=== PATIENT | female | born 1990 | race Caucasian/White ===

== ENCOUNTER 2024-10-01 15:28 | Outpatient (AMB) | payer OTHER, SELFPAY ==
--- NOTE | 2024-10-01 15:31 | MHC.PC.OV ---
Vital Signs 10/01/24 15:45 Height 5 ft 3 in Weight 142 lb BMI 25.2 BP 142/78 H Blood Pressure Location Lt brachial Position Sitting Respiration 14 Pulse 98 Pulse Source Pulse Oximeter Temp 97.1 F Temp Source Oral Pulse Oximetry (%) 95 Oxygen Delivery Method Room Air Intake Visit Reasons: FUNCTIONAL CONSULTANT Medication review Intake Note: new patient to establish care Licensed Weigher Required: No Allergies sumatriptan [SUMATRIPTAN] Allergy (Severe, Unverified 10/01/24 15:31) THROAT SWELLING Tobacco use date assessed: 10/01/24 Dental Screening Dental Screen Date: 10/01/24 Did you have a dental visit in the last 12 months?: Yes Did you have a dental problem in the last 6 months where you did not have access to dental care?: No Was dental information given to patient?: Patient has dentist HPI HPI Comments History of Present Illness Details This is a 33-year-old female with a past medical history of recurrent nephrolithiasis, chronic pain, colon polyps, hypertension, insomnia, anxiety, prior obesity now resolved on GLP 1 therapy, eczema and left breast masses presenting to [facility]. She transferred from [facility]. Left breast masses-patient said she felt something in her left breast, and she went for ultrasound and mammogram and this was just fibrous tissue, but they also saw 3 masses in the outer quadrants of her left breast. She has a biopsy scheduled next week and an appointment to review the results on 10/13/2024. She is concerned because her paternal cousin had breast cancer under the age of 50. Her father also has colon cancer in his 60s, and her paternal grandfather had melanoma. She was referred to genetic counseling at [facility] at 1 point (this was recommended apparently by an oncologist), but at the time her insurance did not cover it. She has new insurance now. She is followed by [facility] for recurrent nephrolithiasis. Last year she had a colonoscopy which demonstrated what she says were several colon polyps and 1 was 7 mm. She was told she has to have colonoscopies annually. She is followed by [facility]. She has a colonoscopy scheduled 11/18/2023. She was diagnosed with hypertension in her early 30s. She has a family history of this. She quit smoking, and she lost weight, and her BMI is 25.2, but her blood pressure remains elevated at home and in the office. She is taking hydrochlorothiazide 12.5 mg and losartan 100 mg daily. She is a social drinker. She does not take stimulants. She does not drink caffeine excessively. She will have a cup of coffee or 2. She also endorses chronic right rib pain and left shoulder pain since she was a teenager. She wanted to discuss referral to Rheumatology with her healthcare provider who ended up closing the practice. No recent labs. Patient reports she has gone to the [facility] ED for evaluation of many of the symptoms and had multiple CT scans and x-rays. She takes Zofran as needed for nausea related to her anxiety. She takes alprazolam 0.5 mg twice daily as needed. She usually just takes this at night because she can not sleep otherwise. Trazodone made her feel like a zombie. Patient is prescribed an oral contraceptive pill, but she has not seen a toaster operator in a couple of years. Reports her last healthcare provider said they would do pap/pelvic exam, but this was not done per patient. ROS: Constitutional: No unexplained weight loss, fever, chills or night sweats. Respiratory: No shortness of breath, cough or sputum production. Cardiovascular: No chest pain, chest pressure or chest discomfort. No palpitations or pedal edema. Gastrointestinal: No anorexia, nausea, vomiting or diarrhea. No abdominal pain or blood in stool. Genitourinary: No dysuria, hematuria, urinary frequency. Neurologic: No headache, dizziness, syncope Psychiatric: No depression.. No SI/HI. Physical exam: Constitutional: Alert, in no distress. Eyes: Pupils are equal, round and reactive to light. Extraocular muscles intact. Neck: Supple, Full range of motion. No lymphadenopathy. No palpable thyroid masses. Respiratory: Clear to auscultation. Cardiovascular: S1 S2 regular. No murmurs. Gastrointestinal: Abdomen soft, non-tender, non-distended. Normal bowel sounds. No palpable masses. Neurologic: No focal neurological deficits. Skin: No rashes Extremities: Warm and well perfused. No clubbing, cyanosis or edema. 3+ peripheral pulses bilaterally. Psychiatric: Normal mood and affect [facility] Medical History (Updated 10/01/24 @ 17:31 by HAILEY Mendoza) Contraception management Eczema History of gestational diabetes Insomnia Former smoker Chronic pain Colon polyps Family history of cancer Imbalance Memory loss Headache Kidney stones Anxiety HTN (hypertension) Surgical History (Updated 10/01/24 @ 15:53 by Phoebe Millan) Hx of tonsillectomy Family History (Updated 10/01/24 @ 15:51 by Phoebe Millan) Mother HTN (hypertension) Cardiovascular disease Thyroid disorder Father HTN (hypertension) Cancer Maternal Grandmother HTN (hypertension) High cholesterol Diabetes Cardiovascular disease Cancer Paternal Grandfather HTN (hypertension) High cholesterol Cancer Sister Asthma Social History (Updated 10/01/24 @ 15:45 by Phoebe Millan) Household Members: Significant Other and Children Both parents involved: No Caregiver staying overnight: No Housing: House Are you a primary intensive care anaesthetist to a significant other at home: Yes Do you presently have visiting nurse or other home services: No 75 years or older and lives alone: No Alcohol intake: current Alcohol intake frequency: a few times a month Patient Tobacco Use Status: Former Tobacco user Cigarettes Per Day: 10 Years Smoked: 10 e-Cigarette/Vaping Use: Never Used Second Hand Smoke Exposure: No service: No Current occupational status: unemployed Cognitive needs: No Hearing needs: No Vision needs: No Questionnaire PHQ-9 Over the last 2 weeks, how often have you been bothered by any of the following problems? 1. Little interest or pleasure in doing things: not at all 2. Feeling down, depressed, or hopeless: not at all 3. Trouble falling or staying asleep, or sleeping too much: not at all 4. Feeling tired or having little energy: not at all 5. Poor appetite or overeating: not at all 6. Feeling bad about yourself - or that you are a failure or have let yourself or your family down: not at all 7. Trouble concentrating on things, such as reading the newspaper or watching television: not at all 8. Moving or speaking so slowly that other people could have noticed. Or the opposite - being so fidgety or restless that you have been moving around a lot more than usual: not at all 9. Thoughts that you would be better off or of hurting yourself in some way: not at all Total score: 0 71083 - PHQ-9 Billing: Yes Source: Developed by Drs. Karthik Felton, Kristie Barrientos, Dave Brown and colleagues, with an educational joan from [employer]. Thrive Questionnaire Date Thrive assessed: 10/01/24 I am a: Patient What is your living situation today?: I have a steady place to live Within the past 12 months, did the food you bought not last and you didn't have the money to get more?: Never true Within the past 12 months, did you worry whether your food would run out before you got money to buy more?: Never true Do you have trouble paying for medicines?: No Do you have trouble getting transportation to medical appointments?: No Do you have trouble paying your heating and electricity bill?: No Do you have trouble taking care of your child, family member or friend?: No Do you have trouble with day-to-day activities such as bathing, preparing meals, shopping, managing finances, etc.?: No Are you currently unemployed and looking for a job?: I choose not to answer this question Are you interested in more education?: No Please select the resources that you would like help with: None Currently or been in a relationship where the following occur: No concerns reported THRIVE Score: 0 AUDIT C Alcohol Use Questionnaire (AUDIT-C) 1. How often do you have a drink containing alcohol?: Monthly or less 2. How many drinks containing alcohol do you have on a typical day when you are drinking?: 1 or 2 3. How often do you have six or more drinks on one occasion?: Never Total Score: 1 THIERNO-7 AMB Questionnaire THIERNO-7 Date THIERNO - 7 assessed: 10/01/24 Feeling nervous, anxious, or on edge: 0 = Not at all Not being able to stop or control worryin = Not at all Worrying too much about different things: 0 = Not at all Trouble relaxin = Not at all Being so restless that it is hard to sit still: 0 = Not at all Becoming easily annoyed or irritable: 0 = Not at all Feeling afraid as if something awful might happen: 0 = Not at all Total THIERNO-7 score (0-4 normal; 5-9 mild; 10-14 moderate; 15-21 severe): 0 Source: Developed by Drs. Karthik Felton, Kristie Barrientos, Dave Brown and colleagues, with an educational joan from [employer]. THIERNO-7 Assessment Billing THIERNO-7 Assessment Tool: THIERNO-7 Assessment 93509 Physical exam (Primary Care) Vital Signs: Last Vital Signs Temp 97.1 F 10/01/24 15:45 Pulse 98 10/01/24 15:45 Resp 14 10/01/24 15:45 BP 142/78 H 10/01/24 15:45 Pulse Ox 95 10/01/24 15:45 Oxygen Delivery Method Room Air 10/01/24 15:45 BMI result Body Mass Index 25.2 Tobacco/Smoking Status: Tobacco use Status Tobacco use date assessed 10/01/24 10/01/24 15:53 Patient Tobacco Use Status Former Tobacco user 10/01/24 15:53 e-Cigarette/Vaping Use Never Used 10/01/24 15:53 PHQ-9: PHQ-9 Score PHQ-9: Total score 0 10/01/24 15:35 Thrive Assessment: Date of Thrive Assessment Date Thrive assessed 10/01/24 10/01/24 15:35 Currently or been in a relationship where the following occur: No concerns reported Coding Level of Care Code New Pt Level 5 (27570) Complex EM visit Add On G2211 Diagnoses Family history of cancer Z80.9 Colon polyps K63.5 Chronic pain G89.29 HTN (hypertension) I10 Anxiety F41.9 Contraception management Z30.9 Additional Codes THIERNO-7 Assessment Billing - THIERNO-7 Assessment Tool: THIERNO-7 Assessment 02861 ([id number]) PHQ-9 - 30848 - PHQ-9 Billing: Yes ([id number]) Time Spent (min) 60 Comment Chart review, direct patient care, completing documentation Assessment & Plan Assessment & Plan (1) Family history of cancer: Code(s): Z80.9 - Family history of malignant neoplasm, unspecified Category: Medical (2) Colon polyps: Code(s): K63.5 - Polyp of colon Category: Medical (3) Chronic pain: Code(s): G89.29 - Other chronic pain Category: Medical (4) HTN (hypertension): Code(s): I10 - Essential (primary) hypertension Category: Medical (5) Anxiety: Code(s): F41.9 - Anxiety disorder, unspecified Category: Medical (6) Contraception management: Code(s): Z30.9 - Encounter for contraceptive management, unspecified Category: Medical Plan In summary this is a 33-year-old female with multiple concerning issues today. The breast biopsy is the 1st priority as she reportedly had 3 masses discovered on ultrasound and mammogram recently and she has a family history of breast cancer. This is scheduled, and she has a appointment to review the results. Given her family history and her personal history I am going to refer her again to genetic counseling to see if her insurance will cover testing. I am also concerned about secondary causes of hypertension since she is not overweight anymore, she no longer smokes, and she is requiring more than 1 medication for hypertension. We will discontinue hydrochlorothiazide and start her on chlorthalidone 25 mg daily. Side effects reviewed with the patient including hypokalemia, dizziness, hypotension, dehydration, urinary frequency. She will continue losartan 100 mg daily. She denies history of CKD. She will start the meds and go to the lab in a week to check blood work including renal function. We will consider referral to Cardiology and/or Nephrology for evaluation of secondary causes of hypertension. Chronic pain was briefly addressed today. I will order rheumatological labs. These are longstanding issues, and she may require imaging, but I would also like to review her record. I will also readdress her regimen for anxiety and sleep as long-term use of benzodiazepine is not recommended. I am concerned about her cardiovascular risk while using the oral contraceptive pill given hypertension, and she is turning 34 in October. I am referring her urgently to Gynecology to discuss this and potential alternatives to the Apri pill she is taking now. She has a colonoscopy scheduled for re-evaluation of polyps, and she is followed by [facility]. Plan to refer to Dermatology for a skin exam given family history of melanoma. We will discuss this at her follow up appointment which is scheduled in 3 weeks. I will refill her Zepbound. I will need to call for the prior authorization of this. Orders: Orders Lipid Panel Today E78.5 - Hyperlipidemia, unspecified, F41.9 - Anxiety disorder, unspecified, G47.00 - Insomnia, unspecified, G89.29 - Other chronic pain, I10 - Essential (primary) hypertension, K63.5 - Polyp of colon, N20.0 - Calculus of kidney, Z30.9 - Encounter for contraceptive management, unspecified, Z86.32 - Personal history of gestational diabetes, Z87.891 - Personal history of nicotine dependence TSH reflex Free T4 Today F41.9 - Anxiety disorder, unspecified, G47.00 - Insomnia, unspecified, G89.29 - Other chronic pain, I10 - Essential (primary) hypertension, K63.5 - Polyp of colon, N20.0 - Calculus of kidney, Z30.9 - Encounter for contraceptive management, unspecified, Z86.32 - Personal history of gestational diabetes, Z87.891 - Personal history of nicotine dependence Hemoglobin A1c Today E11.9 - Type 2 diabetes mellitus without complications, F41.9 - Anxiety disorder, unspecified, G47.00 - Insomnia, unspecified, G89.29 - Other chronic pain, I10 - Essential (primary) hypertension, K63.5 - Polyp of colon, N20.0 - Calculus of kidney, Z30.9 - Encounter for contraceptive management, unspecified, Z86.32 - Personal history of gestational diabetes, Z87.891 - Personal history of nicotine dependence Lipase Today F41.9 - Anxiety disorder, unspecified, G47.00 - Insomnia, unspecified, G89.29 - Other chronic pain, I10 - Essential (primary) hypertension, K63.5 - Polyp of colon, N20.0 - Calculus of kidney, Z30.9 - Encounter for contraceptive management, unspecified, Z86.32 - Personal history of gestational diabetes, Z87.891 - Personal history of nicotine dependence Vitamin B12 Today F41.9 - Anxiety disorder, unspecified, G47.00 - Insomnia, unspecified, G89.29 - Other chronic pain, I10 - Essential (primary) hypertension, K63.5 - Polyp of colon, N20.0 - Calculus of kidney, Z30.9 - Encounter for contraceptive management, unspecified, Z86.32 - Personal history of gestational diabetes, Z87.891 - Personal history of nicotine dependence, Z91.89 - Other specified personal risk factors, not elsewhere classified TRISH Reflex Titer and Pattern Today F41.9 - Anxiety disorder, unspecified, G47.00 - Insomnia, unspecified, G89.29 - Other chronic pain, I10 - Essential (primary) hypertension, K63.5 - Polyp of colon, N20.0 - Calculus of kidney, Z30.9 - Encounter for contraceptive management, unspecified, Z86.32 - Personal history of gestational diabetes, Z87.891 - Personal history of nicotine dependence Erythrocyte Sedimentation Rate Today F41.9 - Anxiety disorder, unspecified, G47.00 - Insomnia, unspecified, G89.29 - Other chronic pain, I10 - Essential (primary) hypertension, K63.5 - Polyp of colon, N20.0 - Calculus of kidney, Z30.9 - Encounter for contraceptive management, unspecified, Z86.32 - Personal history of gestational diabetes, Z87.891 - Personal history of nicotine dependence Microalbumin, Random (w Creat) Today E11.9 - Type 2 diabetes mellitus without complications, F41.9 - Anxiety disorder, unspecified, G47.00 - Insomnia, unspecified, G89.29 - Other chronic pain, I10 - Essential (primary) hypertension, K63.5 - Polyp of colon, N20.0 - Calculus of kidney, Z30.9 - Encounter for contraceptive management, unspecified, Z86.32 - Personal history of gestational diabetes, Z87.891 - Personal history of nicotine dependence Comprehensive Met. Panel Today F41.9 - Anxiety disorder, unspecified, G47.00 - Insomnia, unspecified, G89.29 - Other chronic pain, I10 - Essential (primary) hypertension, K63.5 - Polyp of colon, N20.0 - Calculus of kidney, Z30.9 - Encounter for contraceptive management, unspecified, Z86.32 - Personal history of gestational diabetes, Z87.891 - Personal history of nicotine dependence Complete Blood Count Auto Diff Today F41.9 - Anxiety disorder, unspecified, G47.00 - Insomnia, unspecified, G89.29 - Other chronic pain, I10 - Essential (primary) hypertension, K63.5 - Polyp of colon, N20.0 - Calculus of kidney, Z30.9 - Encounter for contraceptive management, unspecified, Z86.32 - Personal history of gestational diabetes, Z87.891 - Personal history of nicotine dependence Amylase Today F41.9 - Anxiety disorder, unspecified, G47.00 - Insomnia, unspecified, G89.29 - Other chronic pain, I10 - Essential (primary) hypertension, K63.5 - Polyp of colon, N20.0 - Calculus of kidney, Z30.9 - Encounter for contraceptive management, unspecified, Z86.32 - Personal history of gestational diabetes, Z87.891 - Personal history of nicotine dependence Vitamin D 25-OH (D2 and D3) Today F41.9 - Anxiety disorder, unspecified, G47.00 - Insomnia, unspecified, G89.29 - Other chronic pain, I10 - Essential (primary) hypertension, K63.5 - Polyp of colon, M85.80 - Other specified disorders of bone density and structure, unspecified site, N20.0 - Calculus of kidney, Z30.9 - Encounter for contraceptive management, unspecified, Z86.32 - Personal history of gestational diabetes, Z87.891 - Personal history of nicotine dependence C Reactive Protein Today F41.9 - Anxiety disorder, unspecified, G47.00 - Insomnia, unspecified, G89.29 - Other chronic pain, I10 - Essential (primary) hypertension, K63.5 - Polyp of colon, N20.0 - Calculus of kidney, Z30.9 - Encounter for contraceptive management, unspecified, Z86.32 - Personal history of gestational diabetes, Z87.891 - Personal history of nicotine dependence Rheumatoid Factor Today F41.9 - Anxiety disorder, unspecified, G47.00 - Insomnia, unspecified, G89.29 - Other chronic pain, I10 - Essential (primary) hypertension, K63.5 - Polyp of colon, N20.0 - Calculus of kidney, Z30.9 - Encounter for contraceptive management, unspecified, Z86.32 - Personal history of gestational diabetes, Z87.891 - Personal history of nicotine dependence Lyme IgG/IgM w/reflex to WB Today F41.9 - Anxiety disorder, unspecified, G47.00 - Insomnia, unspecified, G89.29 - Other chronic pain, I10 - Essential (primary) hypertension, K63.5 - Polyp of colon, N20.0 - Calculus of kidney, Z30.9 - Encounter for contraceptive management, unspecified, Z86.32 - Personal history of gestational diabetes, Z87.891 - Personal history of nicotine dependence Referrals Genetics Referral K63.5 - Polyp of colon, Z80.9 - Family history of malignant neoplasm, unspecified AQUATICS ASSISTANT DEPARTMENT HEAD Referral Z30.9 - Encounter for contraceptive management, unspecified Medications: New ondansetron HCl 8 mg PO Q8H PRN 30 tabs 0RF nausea and vomiting chlorthalidone 25 mg PO DAILY 30 tabs 0RF tirzepatide (weight loss) (Zepbound) 5 mg (0.5 mL) subcut QWEEK 2 mL 5RF Patient Instructions: Stop HCTZ 12.5 mg daily. Start Chlorthalidone 25 mg daily. Continue Losartan 100 mg daily. Return to lab in 1 week. Please fast over night (10-12 hours).
[2024-10-01 15:45] VITALS: BP 142/78; PULSE 98; RESP 14; TEMP 36.2; O2SAT 95; BMI 25.2
--- OUTSIDE RECORDS SUMMARY | 2024-10-01 18:47 | XMS_ITS | Encounter Summary ---
Author Organization [employer] Address [address] [place] [address] [address] [place] [address] Care Team Providers Care Dehydration Unit Operator Name Role Phone Riri Avina DO Primary Care Provider [phone] Reason for Visit * Reason Onset Date Comments Appointment 10/29/2022 Encounter Details Date Type Department Care Team ([facility] st Contact Info) Description 10/29/2022 Telephone [facility] [address] [place] [address] Connor High, RON [address] [place] [address] Appointment Social History Tobacco Use Types Packs/Day Years Used Date Smoking Tobacco: Never Assessed Comments Unknown Sex and Gender Information Value Date Recorded Sex Assigned at Female 06/04/2022 10:36 AM EDT Legal Sex Female 10:36 AM EDT Gender Identity Female 06/04/2022 10:36 AM EDT Sexual Orientation Straight 06/04/2022 10 :36 AM EDT COVID-19 Exposure Response Date Recorded In the last 10 days, have yo u been in contact with someone who was confirmed or suspected to have Coronavirus/COVID-19? No / Unsure 10/18/2022 8:32 AM EDT documented as of this encounter Miscellaneous Notes * Telephone Encounter - Consuelo Bunch - 10/29/2022 9:06 AM EDT Patient had to cancel appt today 10/[address] High. She is unable to make it and needs to reschedule. Unsure if to place back on waiting list or if appt is immediately rescheduled. Called Donna for assistance but no connect yet. documented in this encounter Plan of Treatment Not on file documented as of this encounter Visit Diagnoses Not on filedocumented in this encounter Care Teams Dehydration Unit Operator Relationship Specialty Start Date End Date Riri Avina DO [address] [place] [id number] PCP - General Family Medicine 05/05/24 documented as of this encounter
--- OUTSIDE RECORDS SUMMARY | 2024-10-01 18:47 | XMS_ITS ---
Author Organization [facility], [facility] Address [address] [place], [place] [id number] Care Team Providers Care Diagnostic Assistant Name Role Phone BRI HADLEY Primary Care Provider [phone] REASON FOR VISIT CPE Encounters Encounter Location Date Provider Diagnosis [address] [id number] 08/31/2024 BRI HADLEY PLAN OF TREATMENT No Information Progress Notes * SUSAN PAYNEDOB:[birth year] (33 yo F)Acc No.[id number]:08/31/2024 Progress Note Patient:??HARRIETT PAYNE LE Provider:??Bri Hadley DNP :1990?Age:33 Y?Sex:Fe male Date:08/31/2024 Phone: Address:[address] [place], [place] [address], [place] Subjective: * Chief Complaints: * ?1. CPE. * Medical History:?? Objective: Assessment: Plan: * Treatment: Care Plan: * Problems:?? * Billing Information: * Visit Code:?? * Procedure Codes:?? * Sign off status: Pending * Provider:??Bri Hadley DNP Date:??0 08/31/2024
--- OUTSIDE RECORDS SUMMARY | 2024-10-01 18:47 | XMS_ITS ---
Author Organization [facility], [facility] Address [address] [place] [id number] Care Team Providers Care Support Associate Name Role Phone BRI HADLEY Primary Care Provider [phone] REASON FOR VISIT PA Request MEDICATIONS Medication SIG (Take, Route, Fr equency, Duration) Notes Start Date End Date Status ALPRAZolam 0.5 MG 1 tablet Oral Twice a day for 30 days 09/16/2024 Active Encounters Encounter Location Date Provider Diagnosis [address] [id number] 09/07/2024 BRI HADLEY PLAN OF TREATMENT Medication Medication Name Sig Start Date Stop Date Notes ALPRAZolam 0.5 MG 1 tablet Oral Twice a day for 30 days Progress Notes * SUSAN PAYNEDOB:[birth year] (33 yo F)Acc No.[id number]:09/07/2024 Patient:??HARRIETT PAYNE :1990?Age:33 Y?Sex:Fe male Phone: Address: [place] [address] * Refills?? Refill ALPRAZolam Tablet, 0.5 MG, Oral, 60, 1 tablet, Twice a day, 30 days, Refills=1 * true * Date:??
--- OUTSIDE RECORDS SUMMARY | 2024-10-01 18:47 | XMS_ITS | Encounter Summary ---
Author Organization [employer] Address [address] [facility] 7t [place] [address] Care Team Providers Care Tentering Machine Feeder Name Role Phone Riri Avina DO Primary Care Provider [phone] Encounter Details Date Type Department Care Team (Late st Contact Info) Description 03/27/2023 Telephone [facility] ADULT DENTAL [address] [place] [address] Tali Elliott DMD Social History Tobacco Use Types Packs/Day Years Used Date Smoking Tobacco: Never Smokeless Tobacco: Never Alcohol Use Standard Drinks/Week Comments Defer 0 (1 standard drink = 0.6 oz pur e alcohol) Comments Unknown Sex and Gender Information Value Date Recorded Sex Assigned at Female 06/04/2022 10:36 AM EDT Legal Sex Female 10:36 AM EDT Gender Identity Female 06/04/2022 10:36 AM EDT Sexual Orientation Straight 06/04/2022 10 :36 AM EDT documented as of this encounter Plan of Treatment Not on file documented as of this encounter Visit Diagnoses Not on filedocumented in this encounter Care Teams Tentering Machine Feeder Relationship Specialty Start Date End Date Riri Avina DO [address] [place] [address] PCP - General Family Medicine 05/05/24 documented as of this encounter
--- OUTSIDE RECORDS SUMMARY | 2024-10-01 18:48 | XMS_ITS | Encounter Summary ---
Author Organization [employer] Address [address] [facility] 7t [place] [address] Care Team Providers Care Supervisor Instrument Maintenance Name Role Phone FabriceRiri Primary Care Provider [phone] Encounter Details Date Type Department Care Team (Late st Contact Info) Description 08/14/2024 Orders Only [facility] MEDICAL [address] [place] [address] Provider, Mannie, Social History Tobacco Use Types Packs/Day Years [...] Procedure Name Priority Date/Time Associated Diagnosis Comments SURGICAL PATHOLOGY Routine 11/21/2023 3:59 PM EDT HM PAP/HPV Routine 06/20/2022 4:01 PM EST documented in this encounter Results * Surgical Pathology (11/21/2023 3:59 PM EDT) Historical Provider LAB PATHOLOGY ORDERABLES Final Result * HM PAP/HPV (06/20/2022 4:01 PM EST) Historical Provider HEALTH MAINTENANCE Final Result documented in this encounter Visit Diagnoses Not on filedocumented in this encounter Care Teams Supervisor Instrument Maintenance Relationship Specialty Start Date End Date Riri Avina DO [address] [place] [address] PCP - General Family Medicine 05/05/24 documented as of this encounter
--- OUTSIDE RECORDS SUMMARY | 2024-10-01 18:48 | XMS_ITS | Clinical Summary ---
Author Organization [facility] [employer] Address [address] [place] [address] 7 [place] [address] Care Team Providers Care Music Therapy Teacher Name Role Phone Riri Avina DO Primary Care Provider [phone] Allergies Active Allergy Reactions Criticality Noted Date Comments Sumatriptan Anaphylaxis High 04/28/2021 Medications amoxicillin-clav ulanate (Augmentin) 500-125 MG tabletIndication s:Dental abscess Take 1 tablet (500 mg) by mouth 3 times daily. 30 tablet 10/04/2022 Active Active Problems Problem Noted Date Diagnosed Date Abdominal pain 08/20/2024 Overview (08/20/2024): Images from the original note were not included. Encounters Date Type Department Care Team Description 08/14/2024 Orders Only [facility] MEDICAL [address] [place] [address] ProviderMannie MD 08/08/2024 Abstract [facility] [address] [place] [address] Riri Avina DO from Last 3 Months Immunizations Name Administration Dates Next Due INFLUENZA INJECTABLE QUADRIV ALANT CCIIV4 MDCK Multi-dose vial 06/28/2020 Influenza, IIV3, injectable 06/28/2020 Tdap 10/12/2016 Social History Tobacco Use Types Packs/Day Years Used Date Smoking Tobacco: Never Smokeless Tobacco: Never Tobacco Cessation:Counseling Given: Not Answered Alcohol Use Standard Drinks/Week Comments Defer 0 (1 standard drink = 0.6 oz pur e alcohol) Comments Unknown Sex and Gender Information Value Date Recorded Sex Assigned at Female 06/04/2022 10:36 AM EDT Legal Sex Female 10:36 AM EDT Gender Identity Female 06/04/2022 10:36 AM EDT Sexual Orientation Straight 06/04/2022 10 :36 AM EDT Last Filed Vital Signs Vital Sign Reading Time Taken Comments Blood Pressure 140/90 04/01/2023 3:46 PM EDT Pulse - - Temperature - - Respiratory Rate - - Oxygen Saturation - - Inhaled Oxygen Concentration - - Weight - - Height - - Body Mass Index - - Plan of Treatment Health Maintenance Due Date Last Done Comments Dental Prophylaxis 1989 Dental X-Ray: Full Mouth 1989 Depression Screening 1989 HIV Screening 1989 SDOH Screening 1989 Alcohol/Substance Use Screening 2001 Family Planning (PISQ) 2004 Hepatitis C Screening 10/18/2007 Hepatitis B Vaccines (1 of 3 - 19+ 3-dose series) 2008 Dental Oral Exam 04/20/2023 2022 Tobacco Screening 04/01/2024 04/01/2023 Dental X-Ray: Bitewings 04/02/2024 04/01/2023 COVID-19 Vaccine (3 - 2023-2 5 season) 2024 05/09/2021, 04/18/2021 Influenza Vaccine (#1) 2024 , 06/28/2020 DTaP/Tdap/Td Vaccines (2 - T d or Tdap) 10/12/2026 10/12/2016 Cervical Cancer Screening 06/20/2027 HPV/Cotest 06/20/2027 Pap Smear 06/20/2027 06/20/2022, 06/20/2022 Zoster Vaccines (1 of 2) 10/18/2039 RSV Patients and Patients Aged 60 years or older (1 - 1-dose 75+ series) 2064 HIB Vaccines Aged Out No longer eligi ble based on patient's age to complete this topic HPV Vaccines Aged Out No longer eligi ble based on patient's age to complete this topic Hepatitis A Vaccines Aged Out No long er eligible based on patient's age to complete this topic IPV Vaccines Aged Out No longer eligi ble based on patient's age to complete this topic Meningococcal Vaccine Aged Out No almaz heather eligible based on patient's age to complete this topic Pneumococcal Vaccine: Pediatrics (0 to 5 Years) and At-Risk Patients (6 to 49) Years) Aged Out No longer eligible b ased on patient's age to complete this topic RSV under 20 months Aged Out No longe r eligible based on patient's age to complete this topic Rotavirus Vaccines Aged Out No longer eligible based on patient's age to complete this topic Procedures Procedure Name Priority Date/Time Associated Diagnosis Comments BITEWING - SINGLE RADIOGRAPHIC IMAGE Routine 04/01/2023 3:00 PM EDT PERIODIC ORAL EVALUATION - ESTABLISHED PATIENT Routine 2022 1:00 PM EDT PAP SMEAR Routine 06/20/2022 12:00 AM EST from Last 3 Months or Most Recently Relevant to Health Maintenance Results * Pap Smear (06/20/2022 12:00 AM EST) Swab us Historical Provider MD LAB CYTOLOGY ORDERABLES F inal Result Performing Organization Address City/State/[facility] Co de Phone Number [facility] [address] [place] [address] from Last 3 Months or Most Recently Relevant to Health Maintenance Insurance [facility] , [address] [place] [address] [facility] Care Teams Music Therapy Teacher Relationship Specialty Start Date End Date Riri Avina DO [address] [place] [address] PCP - General Family Medicine 05/05/24
--- OUTSIDE RECORDS SUMMARY | 2024-10-01 18:48 | XMS_ITS ---
Author Organization [facility], [facility] Address [address] [place], [place] [id number] Care Team Providers Care Treatment Specialist Name Role Phone BRI HADLEY Primary Care Provider REASON FOR VISIT Referral for Breast biopsy Encounters Encounter Location Date Provider Diagnosis [address] [id number] 09/16/2024 BRI HADLEY PLAN OF TREATMENT No Information Progress Notes * SUSAN PAYNEDOB:[birth year] (33 yo F)Acc No.[id number]:09/16/2024 Patient:??HARRIETT PAYNE LE :1990?Age:33 Y?Sex:Fe male Phone: Address:[address] [place] [address] * true * Date:??
== END 2024-10-01 16:28 | disposition home or self-care (01) ==
PROVIDERS: PCP Family Medicine; Visit Provider Physician Assistant Medical
DX: K63.5 Polyp of colon (principal); G89.29 Other chronic pain; I10 Essential (primary) hypertension; F41.9 Anxiety disorder, unspecified; Z30.9 Encounter for contraceptive management, unspecified; Z80.9 Family history of malignant neoplasm, unspecified

== ENCOUNTER → 2024-10-01 15:28 | Outpatient (BNVA) | payer OTHER, SELFPAY | PROVIDERS: PCP Family Medicine; Visit Provider Physician Assistant Medical | DX: I10 Essential (primary) hypertension (principal); N63.20 Unspecified lump in the left breast, unspecified quadrant; K63.5 Polyp of colon; G89.29 Other chronic pain; F41.9 Anxiety disorder, unspecified; Z80.0 Family history of malignant neoplasm of digestive organs; Z80.3 Family history of malignant neoplasm of breast | CPT/HCPCS: 96127; 99202 ==

== ENCOUNTER 2024-10-06 08:25 | Outpatient (REF) | payer OTHER, SELFPAY ==
--- OUTSIDE RECORDS SUMMARY | 2024-10-06 08:47 | XMS_ITS | Encounter Summary ---
Author Organization [employer] Address [address] [facility] 7t [place] [address] Care Team Providers Care Test Cell Technician Name Role Phone Riri Avina DO Primary Care Provider [phone] Encounter Details Date Type Department Care Team (Late st Contact Info) Description 03/27/2023 Telephone [facility] ADULT DENTAL [address] [place] [address] Tali Elliott DMD Social History Tobacco Use [...] on filedocumented in this encounter Care Teams Test Cell Technician Relationship Specialty Start Date End Date Riri Avina DO [address] [place] [address] PCP - General Family Medicine 05/05/24 documented as of this encounter
--- OUTSIDE RECORDS SUMMARY | 2024-10-06 08:47 | XMS_ITS | Encounter Summary ---
Author Organization [facility] [facility] [employer] Address [address] [place] [address] 7t [place] [address] Care Team Providers Care Terminal Supervisor Name Role Phone Riri Avina DO Primary Care Provider [phone] Reason for Visit * Reason Onset Date Comments Appointment 10/29/2022 Encounter Details Date Type Department Care Team ([facility] st Contact Info) Description 10/29/2022 Telephone [facility] ADULT DENTAL [address] [place] [address] Connor High, RON [address] [place] [address] Appointment Social History Tobacco Use Types Packs/Day [...] on filedocumented in this encounter Care Teams Terminal Supervisor Relationship Specialty Start Date End Date Riri Avina DO [address] [place] [address] PCP - General Family Medicine 05/05/24 documented as of this encounter
--- OUTSIDE RECORDS SUMMARY | 2024-10-06 08:48 | XMS_ITS | Encounter Summary ---
Author Organization [employer] Address [address] [facility] 7t [place] [address] Care Team Providers Care Auctioneer Automobile Name Role Phone FabriceRiri Primary Care Provider [phone] Encounter Details Date Type Department Care Team (Late st Contact Info) Description 08/14/2024 Orders Only [facility] MEDICAL [address] [place] [address] Provider, Mannie, Social History Tobacco Use Types [...] on filedocumented in this encounter Care Teams Auctioneer Automobile Relationship Specialty Start Date End Date Riri Avina DO [address] [place] [address] PCP - General Family Medicine 05/05/24 documented as of this encounter
--- OUTSIDE RECORDS SUMMARY | 2024-10-06 08:48 | XMS_ITS | Clinical Summary ---
Author Organization [facility] [employer] Address [address] [place] [address] 7 [place] [address] Care Team Providers Care County Nurse Name Role Phone Riri Avina DO Primary Care Provider [phone] Allergies Active Allergy Reactions Criticality Noted Date [...] Department Care Team Description 08/14/2024 Orders Only [facility] MEDICAL [address] [place] [address] ProviderMannie MD 08/08/2024 Abstract [facility] MEDICAL [address] [place] [address] Riri Avina DO from Last 3 Months [...] ORDERABLES F inal Result Performing Organization Address City/State/[facility] Co de Phone Number [facility] [address] [place] [address] from Last 3 Months or Most Recently Relevant to Health Maintenance Insurance [facility] , [address] [place] [address] [facility] Care Teams County Nurse Relationship Specialty Start Date End Date Riri Avina DO [address] [place] [address] PCP - General Family Medicine 05/05/24
--- OUTSIDE RECORDS SUMMARY | 2024-10-06 08:48 | XMS_ITS ---
Author Organization [facility], [facility] Address [address] [place], [place] [id number] Care Team Providers Care Patent Law Specialist Name Role Phone BRI HADLEY Primary Care Provider [phone] REASON FOR VISIT Referral for Breast biopsy Encounters Encounter Location Date Provider Diagnosis [address] [id number] 09/16/2024 BRI HADLEY PLAN OF TREATMENT No Information Progress Notes * SUSAN PAYNEDOB:[birth year] (33 yo F)Acc No.[id number]:09/16/2024 Patient:??HARRIETT PAYNE LE :1990?Age:33 Y?Sex:Fe male Phone: Address:[address] [place] [address] * true * Date:??
--- OUTSIDE RECORDS SUMMARY | 2024-10-06 08:48 | XMS_ITS ---
Author Organization [facility], [facility] Address [address] [place], [place] [phone] Care Team Providers Care Clinical Statistical Programmer Name Role Phone BRI HADLEY Primary Care Provider REASON FOR VISIT CPE Encounters Encounter Location Date Provider Diagnosis [address] [id number] 08/31/2024 BRI HADLEY PLAN OF TREATMENT No Information Progress Notes * SUSAN PAYNEDOB:[birth year] (33 yo F)Acc No.[id number]:08/31/2024 Progress Note Patient:??HARRIETT PAYNE LE Provider:??Bri Hadley DNP :1990?Age:33 Y?Sex:Fe male Date:08/31/2024 Phone: Address:[address] [place], [place] [address], [place] Subjective: * Chief Complaints: * ?1. CPE. * Medical History:?? Objective: Assessment: Plan: * Treatment: Care Plan: * Problems:?? * Billing Information: * Visit Code:?? * Procedure Codes:?? * Sign off status: Pending * Provider:??Bri Hadley DNP Date:??0 08/31/2024
--- OUTSIDE RECORDS SUMMARY | 2024-10-06 08:48 | XMS_ITS ---
Author Organization [facility], [facility] Address [address] [place] [id number] Care Team Providers Care Test Deskman Name Role Phone BRI HADLEY Primary Care Provider REASON FOR VISIT PA Request MEDICATIONS Medication SIG (Take, Route, Fr equency, Duration) Notes Start Date End Date Status ALPRAZolam 0.5 MG 1 tablet Oral Twice a day for 30 days 09/16/2024 Active Encounters Encounter Location Date Provider Diagnosis [address] [id number] 09/07/2024 BRI HADLEY PLAN OF TREATMENT Medication Medication Name Sig Start Date Stop Date Notes ALPRAZolam 0.5 MG 1 tablet Oral Twice a day for 30 days Progress Notes * SUSAN PAYNEDOB:[birth year] (33 yo F)Acc No.[id number]:09/07/2024 Patient:??HARRIETT PAYNE :1990?Age:33 Y?Sex:Fe male Phone: Address: [place] [address] * Refills?? Refill ALPRAZolam Tablet, 0.5 MG, Oral, 60, 1 tablet, Twice a day, 30 days, Refills=1 * true * Date:??
[2024-10-06 11:19] LABS: MANUAL DIFF FLAG NO
[2024-10-06 11:30] LABS: Basophils Percent Auto 0.6 % (0-2); Eosinophils Absolute Auto 0.1 X10*3/uL (0.0-0.4); Eosinophils Percent Auto 1.7 % (0-4); Hemoglobin 14.4 g/dl (12.0-16.0); Imm Gran Abs Auto 0.02 X10*3/uL (0.00-0.03); Imm Gran Pct Auto 0.4 % (0.0-0.4); Lymphocytes Absolute Auto 1.9 X10*3/uL (1.2-4.9); Lymphocytes Percent Auto 35.2 % (20-40); Mean Corpuscular HGB Conc 34.3 g/dl (31.0-35.0); Mean Corpuscular Hemoglobin 29.4 pg (27.0-33.0); Mean Corpuscular Volume 85.9 fL (80.0-98.0); Mean Platelet Volume 9.5 fL (9.4-12.3); Monocytes Absolute Auto 0.4 X10*3/uL (0.1-1.2); Monocytes Percent Auto 8.3 % (2-11); Neutrophils Absolute Auto 2.9 x10*3/uL (2.0-8.3); Neutrophils Percent Auto 53.8 % (45-73); Platelet Count 292 X10*3/uL (160-400); Red Blood Count 4.89 X10*6/uL (4.20-5.50); Red Cell Distribution Width 12.3 % (11.0-16.0); White Blood Count 5.3 X10*3/uL (4.8-10.8)
[2024-10-06 11:51] LABS: Estimated Average Glucose 85 mg/dL; Hemoglobin A1c % 4.6 % (<6.0); Total Hemoglobin (HGBA1C) 3723.0348 umol/L
[2024-10-06 12:07] LABS: Alanine Aminotransferase 16 U/L (0-31); Albumin Level 4.2 g/dL (3.5-5.0); Alkaline Phosphatase 36 U/L (39-117); Amylase 95 U/L (28-100); Anion Gap 12 (12-20); Aspartate Amino Transferase 16 U/L (5-31); Bilirubin Total 0.4 mg/dL (0.0-1.0); Blood Urea Nitrogen 16 mg/dL (9-16); C Reactive Protein 1.44 mg/dL (< or = 0.50); Calcium 9.1 mg/dL (8.4-10.2); Carbon Dioxide 24 mmol/L (22-29); Chloride 105 mmol/L (96-108); Cholesterol 164 mg/dL (<200); Estimated Glomerular Filt Rate > 60; Glucose Random 81 mg/dL (60-115); HDL Cholesterol 45 mg/dL (>40); LDL Cholesterol Calculated 92 mg/dL (<100); Lipase 34 U/L (8-78); Potassium 3.2 mmol/L (3.3-5.1); Sodium 138 mmol/L (135-145); Total Protein 7.4 g/dL (6.5-8.0); Triglycerides 138 mg/dL (<150)
[2024-10-06 12:13] LABS: TSH reflex Free T4 6.88 uIU/mL (0.32-4.0)
[2024-10-06 12:16] LABS: Creatinine Urine 164.84 mg/dL; Microalbum/Creatinine Ratio Ur 7.8 ug/mg cr (<30)
[2024-10-06 12:24] LABS: Rheumatoid Factor < 13.0 IU/mL (<15.0)
[2024-10-06 12:25] LABS: Erythrocyte Sedimentation Rate 6 MM/HR (0-20)
[2024-10-06 12:42] LABS: Vitamin B12 540 pg/mL (200-900)
[2024-10-06 13:09] LABS: Free T4 (Free Thyroxine) 0.94 ng/dL (0.71-1.85)
[2024-10-07 16:29] LABS: Lyme Abs Screen <0.90 index
[2024-10-10 14:48] LABS: Vitamin D 25-OH, D2 <4 ng/mL; Vitamin D 25-OH, D3 27 ng/mL; Vitamin D 25-OH, Total 27 ng/mL (30-100)
[2024-10-12 12:09] LABS: Anti Nuclear Antibody Pattern Nuclear, Homogeneous; Anti Nuclear Antibody Screen POSITIVE (NEGATIVE)
== END 2024-10-06 08:26 | disposition home or self-care (01) ==
LOC: HO.WFDLDS 08:25
PROVIDERS: Visit Provider Physician Assistant Medical
DX: Z30.9 Encounter for contraceptive management, unspecified (principal); E78.5 Hyperlipidemia, unspecified; G47.00 Insomnia, unspecified; Z86.32 Personal history of gestational diabetes; I10 Essential (primary) hypertension; F41.9 Anxiety disorder, unspecified; N20.0 Calculus of kidney; Z87.891 Personal history of nicotine dependence; G89.29 Other chronic pain; K63.5 Polyp of colon; E11.9 Type 2 diabetes mellitus without complications; Z91.89 Other specified personal risk factors, not elsewhere classified; M85.80 Other specified disorders of bone density and structure, unspecified site
CPT/HCPCS: 36415; 80053; 80061; 82043; 82150; 82306; 82570; 82607; 83036; 83690; 84439; 84443; 85025; 85652; 86038; 86039; 86140; 86431; 86617; 86618

== ENCOUNTER 2024-10-15 10:30 | Outpatient (AMB) | payer OTHER, SELFPAY ==
--- NOTE | 2024-10-15 10:57 | MHC.PC.OV ---
Vital Signs 10/15/24 10:59 Height 5 ft 3 in Weight 139 lb 4 oz BMI 24.7 BP 100/66 Blood Pressure Location Lt brachial Position Sitting Respiration 12 Pulse 94 Pulse Source Pulse Oximeter Temp 99.3 F Temp Source Oral Pulse Oximetry (%) 98 Oxygen Delivery Method Room Air Intake Visit Reasons: 30 minutes complex concerns Intake Note: pt is schedule to go over breast biopsy and lab results Family Mediator Required: No Allergies sumatriptan [SUMATRIPTAN] Allergy (Severe, Verified 10/15/24 10:58) THROAT SWELLING Tobacco use date assessed: 10/01/24 Dental Screening Dental Screen Date: 10/01/24 HPI HPI Comments History of Present Illness Details This is a 33-year-old female with a past medical history of recurrent nephrolithiasis, chronic pain, colon polyps, hypertension, insomnia, anxiety, prior obesity resolved after GLP 1 therapy, eczema and left breast masses presenting for follow up. She recently transferred from [facility]. Left breast masses-since she saw me she had a biopsy, and it was benign per patient. She will have a follow up ultrasound in 6 months. She has the appointment with genetic counseling next . Her paternal cousin had breast cancer under the age of 50. Her father also has colon cancer in his 60s, and her paternal grandfather had melanoma. She has a MAILROOM COURIER appointment in December at [facility]. She is followed by [facility] for recurrent nephrolithiasis. Last year she had a colonoscopy which demonstrated what she says were several colon polyps and 1 was 7 mm. She was told she has to have colonoscopies annually. She is followed by [facility]. She has a colonoscopy scheduled 11/18/2023. She was diagnosed with hypertension in her early 30s. She has a family history of this. She quit smoking, and she lost weigh. At her last visit we discontinued hydrochlorothiazide, started chlorthalidone 25 mg daily and continue losartan 100 mg daily. Her blood pressure normalized. Her home systolic readings are 115-120. She had a few days of dizziness when she started chlorthalidone, but this resolved. Her potassium level was slightly low at 3.2 so she increase her potassium intake, and she is going to have this rechecked. No dizziness or weakness. She she continues to endorse chronic right rib pain, lower back and left shoulder pain since she was a teenager. She wanted to discuss referral to Rheumatology with her healthcare provider who ended up closing the practice. CRP was elevated. TRISH is positive. Rheumatoid factor and Lyme negative/normal. Patient reports she has gone to the [facility] ED for evaluation of many of the symptoms and had multiple CT scans and x-rays. These are requested. She takes Zofran as needed for nausea related to her anxiety. She takes alprazolam 0.5 mg twice daily as needed. Patient says she is using this 2-3 times per week now. Trazodone made her feel like a zombie. Her vitamin-D level is low, and she is not on a supplement for this. Her TSH was also elevated. She does not have a history of thyroid disease. ROS: Constitutional: No unexplained weight loss, fever, chills or night sweats. Respiratory: No shortness of breath, cough or sputum production. Cardiovascular: No chest pain, chest pressure or chest discomfort. No palpitations or pedal edema. Gastrointestinal: No anorexia, nausea, vomiting or diarrhea. No abdominal pain or blood in stool. Genitourinary: No dysuria, hematuria, urinary frequency. Neurologic: No headache, dizziness, syncope Psychiatric: No depression.. No SI/HI. Physical exam: Constitutional: Alert, in no distress. Eyes: Pupils are equal, round and reactive to light. Extraocular muscles intact. Neck: Supple, Full range of motion. No lymphadenopathy. No palpable thyroid masses. Respiratory: Clear to auscultation. Cardiovascular: S1 S2 regular. No murmurs. Gastrointestinal: Abdomen soft, non-tender, non-distended. Normal bowel sounds. No palpable masses. Neurologic: No focal neurological deficits. Skin: No rashes Extremities: Warm and well perfused. No clubbing, cyanosis or edema. 3+ peripheral pulses bilaterally. Psychiatric: Normal mood and affect [facility] Medical History (Updated 10/15/24 @ 11:28 by HAILEY Mendoza) Positive TRISH (antinuclear antibody) Elevated TSH Low blood potassium Contraception management Eczema History of gestational diabetes Insomnia Former smoker Chronic pain Colon polyps Family history of cancer Imbalance Memory loss Headache Kidney stones Anxiety HTN (hypertension) Surgical History (Updated 10/01/24 @ 15:53 by Phoebe Millan MA) Hx of tonsillectomy Family History (Updated 10/01/24 @ 15:51 by Phoebe Millan MA) Mother HTN (hypertension) Cardiovascular disease Thyroid disorder Father HTN (hypertension) Cancer Maternal Grandmother HTN (hypertension) High cholesterol Diabetes Cardiovascular disease Cancer Paternal Grandfather HTN (hypertension) High cholesterol Cancer Sister Asthma Social History (Updated 10/01/24 @ 15:45 by Phoebe Millan MA) Household Members: Significant Other and Children Both parents involved: No Caregiver staying overnight: No Housing: House Are you a primary child care supervisor to a significant other at home: Yes Do you presently have visiting nurse or other home services: No 75 years or older and lives alone: No Alcohol intake: current Alcohol intake frequency: a few times a month Patient Tobacco Use Status: Former Tobacco user Cigarettes Per Day: 10 Years Smoked: 10 e-Cigarette/Vaping Use: Never Used Second Hand Smoke Exposure: No service: No Current occupational status: unemployed Cognitive needs: No Hearing needs: No Vision needs: No Questionnaire Thrive Questionnaire Date Thrive assessed: 09/24/24 I am a: Patient What is your living situation today?: I have a steady place to live Within the past 12 months, did the food you bought not last and you didn't have the money to get more?: Never true Within the past 12 months, did you worry whether your food would run out before you got money to buy more?: Never true Do you have trouble paying for medicines?: No Do you have trouble getting transportation to medical appointments?: No Do you have trouble paying your heating and electricity bill?: No Do you have trouble taking care of your child, family member or friend?: No Do you have trouble with day-to-day activities such as bathing, preparing meals, shopping, managing finances, etc.?: No Are you currently unemployed and looking for a job?: I choose not to answer this question Are you interested in more education?: No Please select the resources that you would like help with: None Currently or been in a relationship where the following occur: No concerns reported THRIVE Score: 0 THIERNO-7 AMB Questionnaire THIERNO-7 Date THIERNO - 7 assessed: 10/01/24 Source: Developed by Drs. Karthik Felton, Kristie Barrientos, Dave Brown and colleagues, with an educational joan from [employer]. Physical exam (Primary Care) Vital Signs: Last Vital Signs Temp 99.3 F 10/15/24 10:59 Pulse 94 10/15/24 10:59 Resp 12 10/15/24 10:59 BP 100/66 10/15/24 10:59 Pulse Ox 98 10/15/24 10:59 Oxygen Delivery Method Room Air 10/15/24 10:59 BMI result Body Mass Index 24.7 Tobacco/Smoking Status: Tobacco use Status Tobacco use date assessed 10/01/24 10/15/24 11:02 Patient Tobacco Use Status Former Tobacco user 10/15/24 11:02 e-Cigarette/Vaping Use Never Used 10/15/24 11:02 Thrive Assessment: Date of Thrive Assessment Date Thrive assessed 09/24/24 10/15/24 11:02 Currently or been in a relationship where the following occur: No concerns reported Coding Level of Care Code Est Pt Level 4 (58576) Complex EM visit Add On G2211 Diagnoses Family history of cancer Z80.9 Colon polyps K63.5 Chronic pain G89.29 HTN (hypertension) I10 Anxiety F41.9 Positive TRISH (antinuclear antibody) R76.8 Elevated TSH R79.89 Assessment & Plan Assessment & Plan (1) Family history of cancer: Code(s): Z80.9 - Family history of malignant neoplasm, unspecified Category: Medical (2) Colon polyps: Code(s): K63.5 - Polyp of colon Category: Medical (3) Chronic pain: Code(s): G89.29 - Other chronic pain Category: Medical (4) HTN (hypertension): Code(s): I10 - Essential (primary) hypertension Category: Medical (5) Anxiety: Code(s): F41.9 - Anxiety disorder, unspecified Category: Medical (6) Positive TRISH (antinuclear antibody): Code(s): R76.8 - Other specified abnormal immunological findings in serum Category: Medical (7) Elevated TSH: Code(s): R79.89 - Other specified abnormal findings of blood chemistry Category: Medical Plan Patient reports biopsy was negative. She will repeat the breast ultrasound in 6 months. She has an appointment with genetic counseling due to family history of cancer. Refer to dermatology for skin exam. She has a gynecology visit scheduled. Patient's blood pressure is now well-controlled. Continue chlorthalidone and losartan. She has increased her potassium intake and we will repeat the potassium level. Instructed to call if she develops dizziness or weakness. Go to the ER for severe symptoms. Testing for microalbuminuria was negative. Renal function testing is also normal. We will request EKG done at [facility] and order echocardiogram. TSH elevated-repeat in 6 weeks. Chronic pain, positive TRISH, elevated CRP-refer to Rheumatology. She has tried meloxicam, gabapentin, Tylenol, ibuprofen and cyclobenzaprine. Patient endorses a lot of tension in her lower back. Trial of tizanidine. Cautioned this can cause sedation and drowsiness and not to drive or operate heavy machinery on this medication. Requested imaging from [facility]. Anxiety-currently using alprazolam 2 or 3 times a week. She has a colonoscopy scheduled for re-evaluation of polyps, and she is followed by [facility]. Start 800 IU of vitamin D3 daily. Follow up in 8 weeks. Orders: Orders CA echo transthoracic complete Today I10 - Essential (primary) hypertension Medications: New cholecalciferol (vitamin D3) 800 units PO DAILY 180 caps 0RF tizanidine 2 - 4 mg (1 - 2 x 2 mg) PO Q8H PRN 60 tabs 0RF pain, muscle spasms Refilled chlorthalidone 25 mg PO DAILY 90 tabs 3RF
[2024-10-15 10:59] VITALS: BP 100/66; PULSE 94; RESP 12; TEMP 37.4; O2SAT 98; BMI 24.7
--- OUTSIDE RECORDS SUMMARY | 2024-10-15 13:10 | XMS_ITS | Encounter Summary ---
Author Organization [employer] Address [address] [facility] [address] [place] [address] Care Team Providers Care Banquet Lead Name Role Phone Riri Avina DO Primary Care Provider [phone] Encounter Details Date Type Department Care Team (Late st Contact Info) Description 03/27/2023 Telephone [facility] D[facility]AL [address] [place] [address] Tali Elliott DMD Social History Tobacco Use [...] on filedocumented in this encounter Care Teams Banquet Lead Relationship Specialty Start Date End Date Riri Avina DO [address] [place] [address] PCP - General Family Medicine 05/05/24 documented as of this encounter
--- OUTSIDE RECORDS SUMMARY | 2024-10-15 13:10 | XMS_ITS | Encounter Summary ---
Author Organization [employer] Address [address] [place] [address] [address] [place] [address] Care Team Providers Care Cook Room Supervisor Name Role Phone Riri Avina DO Primary Care Provider [phone] Reason for Visit * Reason Onset Date Comments Appointment 10/29/2022 Encounter Details Date Type Department Care Team ([facility] st Contact Info) Description 10/29/2022 Telephone [facility] ADULT DENTAL [address] [place] [address] Connor High, RON [address] [place] [address] Appointment Social History Tobacco Use Types Packs/Day [...] on filedocumented in this encounter Care Teams Cook Room Supervisor Relationship Specialty Start Date End Date Riri Avina DO [address] [place] [id number] PCP - General Family Medicine 05/05/24 documented as of this encounter
--- OUTSIDE RECORDS SUMMARY | 2024-10-15 13:11 | XMS_ITS ---
Author Organization [facility] Address [address] [place] [id number] Care Team Providers Care User Interface Engineer Name Role Phone BRI HADLEY Primary Care Provider [phone] REASON FOR VISIT PA Request MEDICATIONS Medication SIG (Take, Route, Fr equency, Duration) Notes Start Date End Date Status ALPRAZolam 0.5 MG 1 tablet Oral Twice a day for 30 days 09/16/2024 Active Encounters Encounter Location Date Provider Diagnosis [address] [phone] 09/07/2024 BRI HADLEY PLAN OF TREATMENT Medication Medication Name Sig Start Date Stop Date Notes ALPRAZolam 0.5 MG 1 tablet Oral Twice a day for 30 days Progress Notes * SUSAN PAYNEDOB:[birth year] (33 yo F)Acc No.[id number]:09/07/2024 Patient:??HARRIETT PAYNE :1990?Age:33 Y?Sex:Fe male Phone: Address: [place] [address] * Refills?? Refill ALPRAZolam Tablet, 0.5 MG, Oral, 60, 1 tablet, Twice a day, 30 days, Refills=1 * true * Date:??
--- OUTSIDE RECORDS SUMMARY | 2024-10-15 13:11 | XMS_ITS | Encounter Summary ---
Author Organization [employer] Address [address] [facility] [address] [place] [address] Care Team Providers Care Manager Of Recruiting Name Role Phone FabriceRiri Primary Care Provider [phone] Encounter Details Date Type Department Care Team (Late st Contact Info) Description 08/14/2024 Orders Only [facility] MEDICAL [address] [place] [address] Provider, Mannie, Social History Tobacco Use Types [...] on filedocumented in this encounter Care Teams Manager Of Recruiting Relationship Specialty Start Date End Date Riri Avina DO [address] [place] [address] PCP - General Family Medicine 05/05/24 documented as of this encounter
--- OUTSIDE RECORDS SUMMARY | 2024-10-15 13:11 | XMS_ITS | Clinical Summary ---
Author Organization [facility] [employer] Address [address] [place] [address] [address] [place] [address] Care Team Providers Care Straight Slicing Machine Operator Name Role Phone Riri Avina DO Primary Care Provider [phone] Allergies Active Allergy Reactions Criticality Noted Date [...] Department Care Team Description 08/14/2024 Orders Only [facility] MEDICAL [address] [place] [address] ProviderMannie MD 08/08/2024 Abstract [facility] MEDICAL [address] [place] [address] Riri Avina DO from Last 3 Months [...] ORDERABLES F inal Result Performing Organization Address City/State/[facility] Co de Phone Number [facility] [address] [place] [address] from Last 3 Months or Most Recently Relevant to Health Maintenance Insurance [facility] , [address] [place] [address] [facility] Care Teams Straight Slicing Machine Operator Relationship Specialty Start Date End Date Riri Avina DO [address] [place] [id number] PCP - General Family Medicine 05/05/24
--- OUTSIDE RECORDS SUMMARY | 2024-10-15 13:11 | XMS_ITS | Patient Health Record ---
Author Organization [facility], [facility] Address [address], [place] [id number] Care Team Providers Care Catering Sous Chef Name Role Phone MAE MADISON Primary Care Provider Susan Frank Unavailable [phone] ANGELLA COHEN Unavailable [phone] ALLERGIES Allergen (clinical drug ingredient) Drug/Non Drug Allergy documented on EMR Reaction Allergy Type Onset Date Status sumatriptan SUMAtriptan Throat closure Drug Allergy Active REASON FOR REFERRAL Reason please order pelvic and transvag ultrasound for dx right pelvic pain at [facility] Diagnosis 1 Pelvic pain (R10.2) Referral Organization [facility] Referring Provider First Name MAE Referring Provider Last Name RILEY Referring Provider Speciality Nurse Rory umaña Referred Organization [facility] Referred Address [address], [place],[id number], Referred Provider Specialty Diagnostic R adiology General Notes ALINA HERNANDEZ 0 02/27/2024 09:50:45 AM >order for, demographics, insurance info and order faxed to [facility] [phone] Referral Priority Urgent Reason please order diagnos tic mammo bilateral and left breast ultrasound limited at [facility] specifics in order per provider- due to approx. pea-size mass on left breast located 10:00 to nipple Diagnosis 1 Mass of upper inner quadrant of left breast (N63.22) Referral Organization [facility] Referring Provider First Name ANGELLA Referring Provider Last Name NOEL Referring Provider Speciality Preventive Medicine Referred Organization [facility] Referred Address [address], [place],[id number] Referred Provider Specialty Diagnostic X -Ray General Notes BRIDGET NEFF 08/05 11:34:02 AM > Radiology Form, Referral, OV Note and demographics faxed to [facility] [phone]., ALINA HERNANDEZ 08/31/2024 02:23:31 PM >Received correspondance via fax requesting corrected orders per scheduling and insurance guidelines. Corrected DI orders and referral have been [place]ed [place] [facility] [phone] Referral Priority Routine MEDICATIONS Medication SIG (Take, Route, Frequency, Duration) Notes Start Date End Date Status Zepbound 5 MG/0.5ML 0.5 mL Subcutaneous once every 7 days for 30 days 05/18/2024 12/24/2024 Active Ondansetron HCl 8 MG 1 tablet as needed Orally every 8 hrs for 90 days Active Apri 0.15-30 MG-MCG 1 tablet Orally Once a day for 90 days 05/18/2024 Active Losartan Potassium 25 MG 1 tablet Orally Once a day Not-Taking Gabapentin 100 MG 1 capsule Orally twice a day for 30 days 11/26/2023 Not-Taking hydrOXYzine Pamoate 25 MG 1 capsule at bedtime as needed Orally Once a day for 30 days 01/28/2024 Not-Taking Ibuprofen 800 MG 1 tablet with food or milk as needed Orally every 8 hrs for 30 days 03/06/2024 Not-Taking MiraLax 17 GM/SCOOP 1 scoop mixed with 8 ounces of fluid Orally Once a day PRN Not-Taking traZODone HCl 50 MG 1 tablet at bedtime as needed Orally Once a day for 90 days 100mg Not-Taking Losartan Potassium 100 MG 1 tablet Orall y Once a day for 90 days 04/22/2024 Active Acetaminophen ER 650 MG 2 tablets as nee ded Orally every 8 hrs PRN Active Phexxi 1.8-1-0.4 % as directed Vaginal prior to intercourse for 30 days 04/13/2024 Not-Taking Claritin-D 12 Hour 5-120 MG 1 tablet Ora lly every 12 hrs Active Omeprazole 20 MG 1 capsule 30 minutes before morning meal Orally Once a day for 30 days 02/12/2024 Not-Taking ALPRAZolam 0.5 MG 1 tablet Orally once a day for 30 days PRN 05/11/2024 Not-Taking Ibuprofen 600 MG 1 tablet with food or milk as needed Orally Three times a day Not-Taking Antihistamine Decongestant Not-Taking ALPRAZolam 0.5 MG 1 tablet Oral Twice a day for 30 days 09/16/2024 Active Triamcinolone Acetonide 0.025 % APPLY 1 APPLICATION EXTERNALLY EVERY DAY FOR 7 DAYS for 30 Active Losartan Potassium 50 MG 1 tablet Orally Once a day for 30 days 04/13/2024 Not-Taking hydroCHLOROthiazide 12.5 MG 1 tablet in the morning Oral Once a day for 90 days 07/27/2024 11/24/2024 Active Cyclobenzaprine HCl 10 MG 1 tablet at be dtine as needed Oral Once a day for 7 days 08/13/2023 Not-Taking SOCIAL HISTORY Tobacco Use: Social History Observation Description Date Details (start date - stop date) Current Smoker NA - NA Sex Assigned At : Social History Observation Description Sex Assigned At Unknown Tobacco Use/Smoking Question Answer Notes Tobacco use: current smoker How often do you smoke cigarettes? every day How many cigarettes a day do you smoke? 11-20 Are you interested in quitting? Thinking about q uitting Section Notes: Lives in [place], [place] with fiance & son [place] son [place] son PROBLEMS Problem Type ICD Code Onset Dates Problem Status W/U Status Risk SNOMED Code Notes Problem Polycystic ovarian syndrome (E28.2) Active confirmed Polycystic ovar y syndrome (disorder) (897226644) Problem Sleep disorder, unspecified (G47.9) Active confirmed Sleep disorder (79229161) Problem Essential (primary) hypertension (I10) Active confirmed Essential hypertension (24656586) Problem Calculus of kidney (N20.0) Active confirmed Calculus of kidney (13089550) Problem Panic disorder [episodic paroxysmal anxiety] (F41.0) Active confirmed Panic disor yudy (928089099) Problem Obesity (BMI 30-39.9) (E66.9) Active confirmed Obesity (751984403) VITAL SIGNS Heart Rate 89 /min 08/19/2024 Oximetry 98 % 08/19/2024 Height-cm 160.02 cm 08/19/2024 Blood pressure diastolic 82 mm Hg 08/19/2024 Weight-kg 67.77 kg 08/19/2024 Height 63 in 08/19/2024 Blood pressure systolic 128 mm Hg 08/19/2024 Weight 149.4 lbs 08/19/2024 BMI 26.46 kg/m2 08/19/2024 Encounters Encounter Location Date Provider Diagnosis [address] [id number] 01/28/2024 MAE MADISON Generalized abdomina l pain R10.84 ; Epigastric pain R10.13 ; Rash R21 ; Panic disorder [episodic paroxysmal anxiety] F41.0 and Sleep disorder, unspecified G47.[address] [id number] 02/20/2024 MAE MADISON Generalized abdomina l pain R10.84 and Tendonitis M77.[address] [id number] 03/05/2024 MAE MADISON Panic disorder [episodic paroxysmal anxiety] F41.[address] [id number] 04/13/2024 MAE MADISON Essential (primary) hypertension I10 [address] [id number] 08/31/2024 MAE MADISON [address] [place] [id number] 10/28/2023 MAE MADISON Generalized abdomina l pain R10.84 ; Acute bilateral thoracic back pain M54.6 ; Fatigue, unspecified type R53.83 and Polycystic ovarian syndrome E28.[address] [id number] 12/02/2023 MAE MADISON Polyp of colon K63.5 ; Epigastric pain R10.13 and Rash R21 [address] [id number] 12/11/2023 MAE MADISON Rash R21 and Polyp o f colon, unspecified part of colon, unspecified type K63.[address] [id number] 12/24/2023 MAE MADISON Generalized abdomina l pain R10.84 ; Polyp of colon K63.5 and Epigastric pain R10.[address] [id number] 12/31/2023 MAE MADISON Rash and nonspecific skin eruption R21 and Generalized abdominal pain R10.[address] [id number] 02/26/2024 ANGELLA COHEN Flank pain R10.9 and Calculus of kidney N20.[address] [id number] 03/17/2024 Susan Frank Tendonitis M77.[address] [id number] 04/10/2024 ANGELLA COHEN Essential (primary) hypertension I10 and Jaw pain R68.[address] [id number] 04/22/2024 MAE MADISON Calculus of kidney N20.0 ; Generalized abdominal pain R10.84 ; Generalized abdominal tenderness R10.817 ; Acute bilateral thoracic back pain M54.6 ; Epigastric pain R10.13 ; Essential (primary) hypertension I10 ; PCOS (polycystic ovarian syndrome) E28.2 and Food allergy Z91.[address] [id number] 05/18/2024 MAE MADISON Obesity (BMI 30-39.9 ) E66.9 ; Encounter for contraceptive management, unspecified Z30.9 and Essential (primary) hypertension I10 [facility], [facility] [address] [facility] [place] [id number] 08/19/2024 [facility] Mass of upper inner quadrant of left breast N63.22 [facility] [address] [facility] [facility] [place] [id number] 10/16/2023 [facility], [address] [id number] 10/28/2023 [facility], [address] [id number] 11/05/2023 MAE RILEY Generalized abdomina l pain R10.[address] [place] [id number] 11/11/2023 [facility] Generalized abdomina l pain R10.84 and Generalized abdominal tenderness R10.817 [facility] [address] [facility] [place] [id number] 11/21/2023 ANGELLA COHEN [facility], [address] [id number] 11/22/2023 [facility], [address] [id number] 11/26/2023 [facility], [address] [id number] 11/28/2023 [facility], [address] [place] [id number] 12/09/2023 MAE MADISON Polyp of colon K63.5 [facility], [address] [place] [id number] 12/16/2023 MAE MADISON Polyp of colon K63.5 [facility], [address] [place] [id number] 12/27/2023 [facility], [address] [place] [id number] 01/06/2024 MAE LEONIE Generalized abdomina l pain R10.[address] [place] [id number] 01/06/2024 [facility], [address] [place] [id number] 01/10/2024 [facility], [facility] [address] [facility] [place] [id number] 01/13/2024 [facility], [facility] [address] [facility] [place] [place] [id number] 01/17/2024 [facility], [facility] [address] [facility] [facility] [place] [place] [id number] 01/28/2024 [facility], [facility] [address] [facility] [facility] [place] [id number] 02/11/2024 [facility], [facility] [address] [facility] [facility] [place] [id number] 02/12/2024 [facility], [facility] [address] [facility] [place] [id number] 02/27/2024 [facility] Pelvic pain R10.2 [facility], [facility] [address] [facility] [id number] 02/27/2024 [facility], [facility] [address] [facility] [id number] 02/28/2024 [facility], [facility] [address] [facility] [place] [place] [id number] 03/05/2024 [facility], [facility] [address] [facility] [id number] 03/13/2024 [facility], [facility] [address] [facility] [facility] [place] [place] [id number] 04/16/2024 [facility], [facility] [address] [facility] [id number] 04/22/2024 [facility], [facility] [address] [facility] [place] [place] [id number] 04/27/2024 [facility], [facility] [address] [facility] [place] [place] [id number] 05/11/2024 [facility] Panic disorder [episodic paroxysmal anxiety] F41.0 [facility], [facility] [address] [facility] [id number] 06/08/2024 [facility] Obesity (BMI 30-39.9 ) E66.9 [facility], [facility] [address] [facility] [id number] 06/11/2024 [facility] [address], [place] [id number] 07/06/2024 MAE MADISON Obesity (BMI 30-39.9 ) E66.9 [facility], [facility] [address], [place] [id number] 07/09/2024 [facility], [facility] [address], [place] [id number] 07/20/2024 [facility], [facility] [address], [place] [id number] 07/27/2024 MAE MADISON Obesity (BMI 30-39.9 ) E66.9 [facility] [address], [place] [id number] 08/06/2024 [facility], [address] [id number] 08/17/[address] [id number] 08/26/2024 [facility] [address], [place] [id number] 08/26/2024 MAE LEONIE Essential (primary) hypertension I10 ; Encounter for contraceptive management, unspecified Z30.9 and Obesity (BMI 30-39.9) E66.9 [facility] [address], [place] [id number] 09/07/2024 [facility] [address], [place] [id number] 09/16/2024 MAE RILEY ASSESSMENTS Encounter Date Diagnosis Assessment Notes Treatment Notes Treatment Clinical Notes Section Notes 10/28/2023 Generalized abdominal pain (ICD-10 - R10.84) 10/28/2023 Acute bilateral thoracic back pain (ICD-10 - M54.6) Total time spent with patient 32 minutes which includes face to face visit, education and coordination of care. 11/05/2023 Generalized abdominal pain (ICD-10 - R10.84) 11/11/2023 Generalized abdominal pain (ICD-10 - R10.84) 12/02/2023 Polyp of colon (ICD-10 - K63.5) still having 7/10 pain, we had started suboxone as a safer alternative. She has not been notified of pathology results yet from GI and is becoming anxious as she was just told her father has colon cancer 12/02/2023 Epigastric pain (ICD-10 - R10.13) Did note a hiatal hernia on imaging but unlikely to be the cause of her pain 12/09/2023 Polyp of colon (ICD-10 - K63.5) 12/11/2023 Rash (ICD-10 - R21) See HPI, likely contact derm Total time spent with patient 20 minutes which includes face to face visit, education and coordination of care. 12/11/2023 Polyp of colon, unspecified part of colon, unspecified type (ICD-10 - K63.5) Still no pathology report, we do not know the status of the polyps she had removed and she is high risk d/t family history and her symptoms. She was never called, and has since been given a 6 month f/u. This is unacceptable, we will try to advocate and produce the results. 12/16/2023 Polyp of colon (ICD-10 - K63.5) 12/24/2023 Polyp of colon (ICD-10 - K63.5) Patient denies any rectal bleeding at this time. Still having severe pain. Placed call to [facility] to retrieve pathology report of removed polyps. 12/24/2023 Generalized abdominal pain (ICD-10 - R10.84) 12/31/2023 Generalized abdominal pain (ICD-10 - R10.84) We discussed results from her recent colonoscopy. Patient does not have colon cancer based on results. She continues to struggle with abdominal pain. We will put her on a protocol of probiotics and psyllium husk to facilitate regular gastric health and bowel movements. Given that she is not diagnosed with colon cancer we will ween off of her suboxone medication. Total time spent with patient 32 minutes which includes face to face visit, education and coordination of care. Zac Munoz BSN, MANAGER RESORT student saw the patient and formulated the note under direct supervision of Dr. Mae Madison, JOSE LUIS. 12/31/2023 Rash and nonspecific skin eruption (ICD-10 - R21) 01/06/2024 Generalized abdominal pain (ICD-10 - R10.84) 01/28/2024 Epigastric pain (ICD-10 - R10.13) see above 01/28/2024 Generalized abdominal pain (ICD-10 - R10.84) We spent a great deal of time discussing trauma and its effect on the SEPARATIONS SCIENTIST, sympathetic vs parasympathetic, activating vagus nerve to reset. All of her symptoms are likely d/t to this phenomenon-she agrees and the more we discussed this the more came out in regard to her childhood medications which was a lot and as soon as she turned 17, she stopped all of it and never looked back. She is agreeable to try sound therapy today while in office as a way to reset her vagus nerve reset for 22 min 02/20/2024 Generalized abdominal pain (ICD-10 - R10.84) She is feeling better since starting the dicyclocomine, she does have episodic intensities that persist at which point she describes this as leveling and feels like she may pass out from the pain. Explained that opioids would not be the drug of choice for these flares and we should consider increasing her current dose of dicyclocimine along with combined use of ibrupophen and tyelnol as this approach would have the same analgesic affect as morphine without the consitpation and pyschogenic affects that opioids produce. She agrees to this plan 02/20/2024 Tendonitis (ICD-10 - M77.9) This is our working dx but she will need to be seen in person to evaluate this. She will plan on coming in next week 02/26/2024 Calculus of kidney (ICD-10 - N20.0) 02/26/2024 Flank pain (ICD-10 - R10.9) Pt has appointment with urology next week Has follow up with GI in Apr but is on the cancellation list Expresses frustration as just wants to find the cause of the pain Discussed a more functional approach as no meds/interventions have helped with the discomfort Pt is interested in GI mapping Ordered through [facility] and also gave her the name so she can research online as well 02/27/2024 Pelvic pain (ICD-10 - R10.2) 03/05/2024 Panic disorder [episodic paroxysmal anxiety] (ICD-10 - F41.0) 03/17/2024 Tendonitis (ICD-10 - M77.9) Trigger point injection done with 2.5 cc of lidocaine, marcain, triamcinolone 1/1/0.[address] Mae Madison into bilateral wrist joints. Bilateral wrist injections just ulnar to the palmaris longus tendon and at the proximal wrist crease. With immediate relief- able to have increased ROM in fingers Encouraged to wear brace at night if needed Verbalized understanding 04/10/2024 Essential (primary) hypertension (ICD-10 - I10) Pt instructed to cloth picker losartan Rx To take BP at home mid day after taking med in AM and bring log to follow up visit Discussed s/e of HTN Low salt diet Healthy lifestyle 04/10/2024 Jaw pain (ICD-10 - R68.84) Unable to reproduce any pain with exam Oral exam neg, no sign of dental infection but to call dentist for follow up Denies grinding teeth 04/13/2024 Essential (primary) hypertension (ICD-10 - I10) Spent a great deal of time discussing her most resent experience at [facility]-she states it was a terrible experience and she didn't want to go but UC was concerned about jaw pain being cardiac-understandabl e and they were able to exclude anything more urgent in the ED. We are working through many layers right now, this is not straight forward and there are many underlying circumstances. We will increase her losartan to 50 mg and add HCTZ. We will stop her OCPs. 04/22/2024 Calculus of kidney (ICD-10 - N20.0) Lithotripsy done yesterday, was very painful but since has improved but significantly improved since yesterday 04/22/2024 Generalized abdominal pain (ICD-10 - R10.84) 05/11/2024 Panic disorder [episodic paroxysmal anxiety] (ICD-10 - F41.0) 05/18/2024 Encounter for contraceptive management, unspecified (ICD-10 - Z30.9) Medicare eligibility criteria for contraceptive use: http://www.who.int/re productive-health/pub lications/mec/index.h tm [place] [employer] (ACOG) Level A Recommendations: A history of benign breast disease or a positive family history of breast cancer should not be regarded as contraindications to oral contraceptive use. Combination oral contraceptives are safe for women with mild lupus who do not have antiphospholipid antibodies. Combination contraceptives are not recommended for women with a documented history of unexplained venous thromboembolism or venous thromboembolism associated with or exogenous estrogen use, unless they are taking anticoagulants. Combination oral contraceptives should be prescribed with caution, if ever, to women who are older than 35 years and are smokers. Use of the levonorgestrel intrauterine system is appropriate for women with diabetes without retinopathy, nephropathy, or other vascular complications. Level B: Healthy, nonsmoking women doing well on a combination contraceptive can continue their method until the age of 50-55 years, after weighing the risks and benefits. Progestin-only oral contraceptives and Depot Medroxyprogesterone Acetate (DMPA) can be initiated safely at 6 weeks in lactating women and immediately in non- women. Combination contraceptives are not recommended as the first choice for women because of the possible negative impact of contraceptive doses of estrogen on . However, use of combination contraceptives by well-nourished women does not appear to result in infant development problems; therefore, their use can be considered once milk flow is well established. Women with well-controlled and monitored hypertension who are aged 35 years or younger are appropriate candidates for a trial of combination contraceptives, provided they are otherwise healthy, show no evidence of end-organ vascular disease, and do not smoke. The use of combination contraceptives by women with diabetes should be limited to such women who do not smoke, are younger than 35 years, and are otherwise healthy with no evidence of hypertension, nephropathy, retinopathy, or other vascular disease. The use of combination contraceptives may be considered for women with migraine headaches if they do not have focal neurologic signs, do not smoke, are otherwise healthy, and are younger than 35 years. Although cerebrovascular events rarely occur among women with migraines who use combination oral contraceptives, the impact of a stroke is so devastating that clinicians should consider the use of progestin-only, intrauterine, or barrier contraceptives in this setting. Because of the increased risk of venous thrombotic embolism, combination contraceptives should be used with caution in women older than 35 years who are obese. In women with depressive disorders, symptoms do not appear to worsen with use of hormonal methods of contraception. If oral contraceptives are continued before major surgery, heparin prophylaxis should be considered. Level C: Most women with controlled dyslipidemia can use combination oral contraceptives formulated with 35 mcg or less of estrogen. In women with uncontrolled LDL cholesterol greater than 160 mg/dL, a triglyceride level greater than 250 mg/dL, or multiple additional risk factors for coronary artery disease, alternative contraceptives should be considered. Depot medroxyprogesterone acetate has noncontraceptive benefits and is appropriate for women with sickle cell disease. Progestin-only contraceptives may be appropriate for women with coronary artery disease, congestive heart failure, or cerebrovascular disease. However, combination contraceptives are contraindicated in these women. Short- or long-term use of DMPA in healthy women should not be considered an indication for Dual-energy X-ray absorptiometry (DXA) or other tests that assess bone mineral density. In adolescents, the advantages of DMPA likely outweigh the theoretical safety concerns regarding bone mineral density and fractures. However, in the absence of long-term data in this population, consideration of long-term use should be individualized. 05/18/2024 Obesity (BMI 30-39.9) (ICD-10 - E66.9) Has dx of PCOS, notes difficulty for years losing weight despite dietary limitations and exercise daily. She is able to lose a few pounds but then gains more back. She does have HTN which is now controlled on medications. We discussed pharmacological options for weight loss today and she would like to try zepbound. It appears as though this is part of her formulary. We reviewed all SE and dosing guide. We provided demonstration today of use and she was able to return demo well. 06/08/2024 Obesity (BMI 30-39.9) (ICD-10 - E66.9) 07/06/2024 Obesity (BMI 30-39.9) (ICD-10 - E66.9) 07/27/2024 Obesity (BMI 30-39.9) (ICD-10 - E66.9) 08/19/2024 Mass of upper inner quadrant of left breast (ICD-10 - N63.22) See HPI and PE Pt states can feel golf ball sized mass when squeezing breast tissue Unable to appreciate this at baseline with exam, not squeezing tissue will order diagnostic mammo to ensure no cystic areas 08/26/2024 Essential (primary) hypertension (ICD-10 - I10) 08/26/2024 Encounter for contraceptive management, unspecified (ICD-10 - Z30.9) 05/18/2024 Essential (primary) hypertension (ICD-10 - I10) Condition is stable and well controlled on current treatment. No changes made, medication(s) refilled as indicated Total time spent with patient 42 minutes which includes face to face visit, education and coordination of care. 01/28/2024 Rash (ICD-10 - R21) 12/24/2023 Epigastric pain (ICD-10 - R10.13) Will extend work excusal. 12/02/2023 Rash (ICD-10 - R21) 11/11/2023 Generalized abdominal tenderness (ICD-10 - R10.817) 10/28/2023 Fatigue, unspecified type (ICD-10 - R53.83) stressors, pt reports not sleeping well, both difficulty falling and staying asleep. PRN trazodone ordered. follow-up after colonoscopy/endoscopy 04/22/2024 Generalized abdominal tenderness (ICD-10 - R10.817) 10/28/2023 Polycystic ovarian syndrome (ICD-10 - E28.2) follow up after colonoscopy/endoscopy 01/28/2024 Panic disorder [episodic paroxysmal anxiety] (ICD-10 - F41.0) 04/22/2024 Acute bilateral thoracic back pain (ICD-10 - M54.6) 08/26/2024 Obesity (BMI 30-39.9) (ICD-10 - E66.9) 04/22/2024 Epigastric pain (ICD-10 - R10.13) see GI 04/27/24 01/28/2024 Sleep disorder, unspecified (ICD-10 - G47.9) 04/22/2024 Essential (primary) hypertension (ICD-10 - I10) Encouraged DASH diet and regular CV exercise as tolerated 30 min/5 days week. Total time spent with patient 30 minutes which includes iybh-[id number]-bwct encounter and coordination of care. 04/22/2024 PCOS (polycystic ovarian syndrome) (ICD-10 - E28.2) This is our working dx and fits the clinical picture. Educated about PCOS in that it is a hormonal disorder of the ovaries and adrenal glands that occurs over time. PCOS is associated with insulin resistance that causes excess testosterone and virilization characteristics. Often women notice unexplained weight gain. Long-term outcomes of untreated PCOS may include DM, HTN, Heart disease, and endometrial cancer therefore it is important to diagnose and begin treatment as soon as possible. Treatment goals will include: reducing insulin levels, decreasing testosterone production, maintaining healthy endometrium, and reestablishing hormonal balance 04/22/2024 Food allergy (ICD-10 - Z91.018) Reports having issues with food for a long time, wonders if she has allergies-never been worked up so we will order labs today. Will consider referral to fudge candy maker but these appointments take more than a yr so we will work up what we can here first 04/13/2024 Other Transvag US derek robison, will have f/u in office next week to review and repeat BP Total time spent with patient 39 minutes which includes face to face visit, education and coordination of care. 10/28/2023 Other Damari Munoz, APPLICATION ADMINISTRATOR student saw the patient and formulated the note under direct supervision of Dr. Mae Madison DNP. 12/02/2023 Other Total time spen t with patient 32 minutes which includes face to face visit, education and coordination of care. 12/11/2023 Other Total time spen t with patient 20 minutes which includes face to face visit, education and coordination of care. 12/24/2023 Other This visit was performed by APPLICATION ADMINISTRATOR student Katie Ramachandran RN under the supervision of Mae Madison DNP, BOTTLE LABEL INSPECTOR, APPLICATION ADMINISTRATOR-C, VWCN. 02/26/2024 Other Pt also followi ng up with PCP for steroid injections in her bilat hands 04/10/2024 Other Already has fol low up with PCP on Saturday08/19/2024 Other Total time spen t with patient 20 minutes which includes face to face visit, education and coordination of care. PLAN OF TREATMENT Pending Test Test Name Order Date Ultrasound : Breast, left 08/19/2024 Mammogram, left breast 08/19/2024 X ray : Abdomen, flat plate 11/14/2022 CT Abdomen and Pelvis 08/14/2023 Ultrasound : Pelvic Non/OB 02/27/2024 Ultrasound : Transvaginal 02/27/2024 Mammogram (Bilateral), Diagnostic comput er aided 08/19/2024 FOOD ALLERGY PROFILE WITH REFLEXES (9168 2) 04/22/2024 COMPREHENSIVE METABOLIC PANEL (22403) CBC (INCLUDES DIFF/PLT) (6399) DHEA SULFATE (402) 04/22/2024 LH (615) 04/22/2024 PROLACTIN (746) 04/22/2024 ANDROSTENEDIONE (10485) 04/22/2024 Insurance Providers Payer Name Payer Address Payer Phone Subscriber Number Group Number Insured Name Patient Relationship to Insured Coverage Start Date Coverage End Date HNE [address] [place] [phone] [id number] SUSAN RM Self - patient is the insured MEDICAL (GENERAL) HISTORY Medical History History ICD Code Childhood Asthma Anemia Chicken pox as a child Gestastional Diabetes Fracture -- Rt knuckle, 2 ACL , 2 Menisc us Migraine Headaches Eczema Moles Skin Tags Hyperthyroidism - from medication Surgical History Surgery Date(Month/Year) Echocardiogram Stress Test - Tonsillectomy 1998 Adnoidectomy 1998 Left knee - Meniscus/ACL repair 2020
--- OUTSIDE RECORDS SUMMARY | 2024-10-15 13:11 | XMS_ITS ---
Author Organization [facility], [facility] Address [address] [place], [place] [id number] Care Team Providers Care Sheet Taker Name Role Phone BRI HADLEY Primary Care Provider REASON FOR VISIT CPE Encounters Encounter Location Date Provider Diagnosis [address] [id number] 08/31/2024 BRI HADLEY PLAN OF TREATMENT No Information Progress Notes * SUSAN PAYNEDOB:[birth year] (33 yo F)Acc No.[id number]:08/31/2024 Progress Note Patient:??HARRIETT PAYNE LE Provider:??Bri Hadley DNP :1990?Age:33 Y?Sex:Fe male Date:08/31/2024 Phone: Address:[address] [place] [address] Subjective: * Chief Complaints: * ?1. CPE. * Medical History:?? Objective: Assessment: Plan: * Treatment: Care Plan: * Problems:?? * Billing Information: * Visit Code:?? * Procedure Codes:?? * Sign off status: Pending * Provider:??Bri Hadley DNP Date:??0 08/31/2024
--- OUTSIDE RECORDS SUMMARY | 2024-10-15 13:11 | XMS_ITS ---
Author Organization [facility], [facility] Address [address] [place], [place] [id number] Care Team Providers Care Clod Puller Name Role Phone BRI HADLEY Primary Care Provider REASON FOR VISIT Referral for Breast biopsy Encounters Encounter Location Date Provider Diagnosis [address] [id number] 09/16/2024 BRI HADLEY PLAN OF TREATMENT No Information Progress Notes * SUSAN PAYNEDOB:[birth year] (33 yo F)Acc No.[id number]:09/16/2024 Patient:??HARRIETT PAYNE LE :1990?Age:33 Y?Sex:Fe male Phone: Address:[address] [place] [address] * true * Date:??
== END 2024-10-15 11:45 | disposition home or self-care (01) ==
LOC: HO.HMCFM 10:31
PROVIDERS: PCP Physician Assistant Medical; Visit Provider Physician Assistant Medical
DX: Z80.9 Family history of malignant neoplasm, unspecified (principal); K63.5 Polyp of colon; G89.29 Other chronic pain; I10 Essential (primary) hypertension; F41.9 Anxiety disorder, unspecified; R76.8 Other specified abnormal immunological findings in serum; R79.89 Other specified abnormal findings of blood chemistry

== ENCOUNTER → 2024-10-15 10:30 | Outpatient (BNVA) | payer OTHER, SELFPAY | PROVIDERS: PCP Physician Assistant Medical; Visit Provider Physician Assistant Medical | DX: I10 Essential (primary) hypertension (principal); G89.29 Other chronic pain; G47.00 Insomnia, unspecified; F41.9 Anxiety disorder, unspecified; K63.5 Polyp of colon; R76.8 Other specified abnormal immunological findings in serum; R79.89 Other specified abnormal findings of blood chemistry; Z87.442 Personal history of urinary calculi; Z86.0100 Personal history of colon polyps, unspecified; Z80.9 Family history of malignant neoplasm, unspecified | CPT/HCPCS: 99212 ==

== ENCOUNTER → 2024-11-04 14:35 | Outpatient (REF) | payer OTHER, SELFPAY ==
--- NOTE | 2024-11-04 14:38 | CA_ITS ---
Transthoracic Echocardiogram Patient (Last, First, Middle): Miracle [place], Gender: Female Date of : 1990 Age: 34 Procedure Date: 11/04/2024 Procedure Type: Transthoracic Echocardiogram Location: OP Height: 160.02 cm Weight: 63.05 kg BSA: 1.66 m2 Heart Rate: 82 bpm BP: 100 / 66 mmHg Food Analyst: SB Referring MD: Becky HART Symptoms: I10 - Essential (primary) hypertension Study Quality: Adequate ECG Rhythm: Sinus Conclusions: - The left ventricular systolic function is normal. The calculated ejection fraction is 64% by biplane method. - No obvious valvular pathology seen on this study. Findings Left Ventricle Normal left ventricular cavity size. There is normal left ventricular wall thickness. The left ventricular systolic function is normal. The calculated ejection fraction is 64% by biplane method. There is no evidence of regional wall motion abnormalities. Diastolic function is normal for age. Right Ventricle Normal right ventricular cavity size and systolic function. Atria Both atria are normal in size. Aortic Valve The aortic valve structure and function is likely normal. There is no aortic valve stenosis. There is no aortic valve regurgitation. Mitral Valve The mitral valve appears normal. There is no mitral valve regurgitation. There is no mitral valve stenosis. Pulmonic Valve The pulmonic valve is likely normal. Tricuspid Valve There is no tricuspid valve regurgitation. Tricuspid regurgitation envelope is inadequate for calculation of right ventricular systolic pressure. Great Vessels The asc aorta is normal in size. Venous The inferior vena cava is normal in size and collapses greater than 50% with inspiration. Pericardium/Pleural There is no evidence of pericardial effusion. Prior Study Comparison No prior study available for comparison. Recommendations, Care & Conclusions No obvious valvular pathology seen on this study. Measurements 2D Linear Measurements IVSd: 0.76 0.6-0.9/0.6-1.0 cm LVIDd: 4.70 3.9-5.3/4.2-5.9 cm LVIDd Index: 2.83 2.4-3.2/2.2-3.1 cm/m2 LVIDs: 2.92 2.0-3.6 cm LVPWd: 0.47 0.7-1.1 cm LA Diam: 3.30 2.7-3.8/3.0-4.0 cm LAIDs Index: 1.99 1.5-2.3 cm/m2 LV Mass: 109.11 67-162/88-224 g LV Mass Index: 65.73 43-95/49-115 g/m2 LVOT Diam: 2.30 3.0+(-)1.3 cm 2D Systolic Function EF 4C: 62.10 >55% EF 2C: 66.30 >55% EF BiP: 64.20 >55% Mitral Valve MV Pk E: 0.91 MV PK A: 0.60 MV Decel Time: 187.00 E/A: 1.50 E'Lateral: 12.60 E'Medial: 10.10 E/E' Med: 9.00 E/E' Lat: 7.20 PHT: 55.00 MVA PHT: 4.00 Decel [place]: 4.87 Aortic Valve AoV Pk Eagle: 0.98 AoV Pk Grad: 4.00 DERIC: 4.15 LVOT LVOT Pk Eagle: 0.96 LVOT Mn Eagle: 0.76 LVOT VTI: 0.20 LVOT Pk Grad: 4.00 LVOT Mn Grad: 3.00 LVOT Diam: 2.30 LVOT Area: 4.15 Diastolic Function MV Pk E: 0.91 MV Pk A: 0.60 E/A: 1.50 E'Medial: 10.10 E/E' Med: 9.00 E' Laterial: 12.60 E/E' Lat: 7.20 Right Ventricle TAPSE (mm): 19.10 TVS' Eagle: 14.80 Tricuspid Valve RA Press: 3.00 Great Vessels Aorta Sinus of Valsalva: 3.20 2.0-3.5 cm Ao Asc: 2.70 2.1-3.4 cm Pulmonary Valve PV Pk Eagle: 0.99 Peak PV Grad: 4.00 Updated in Other Vendor System with Status of Final Narinder Eddy MD electronically signed on 11/06/2024 11:27:00 AM with status of Final
--- OUTSIDE RECORDS SUMMARY | 2024-11-04 17:17 | XMS_ITS ---
Author Organization [facility], [facility] Address [address] [place], [place] [phone] Care Team Providers Care Cooking Chef Name Role Phone BRI HADLEY Primary Care Provider [phone] REASON FOR VISIT Referral for Breast biopsy Encounters Encounter Location Date Provider Diagnosis [address] [id number] 09/16/2024 BRI HADLEY PLAN OF TREATMENT No Information Progress Notes * SUSAN PAYNEDOB:[birth year] (33 yo F)Acc No.[id number]:09/16/2024 Patient:??HARRIETT PAYNE LE :1990?Age:33 Y?Sex:Fe male Phone: Address:[address] [place] [address] * true * Date:??
--- OUTSIDE RECORDS SUMMARY | 2024-11-04 17:17 | XMS_ITS | Encounter Summary ---
Author Organization [employer] Address [address] [place] [address] [address]t [place] [address] Care Team Providers Care Fleet Driver Name Role Phone Riri Avina DO Primary Care Provider [phone] Reason for Visit * Reason Onset Date Comments Appointment 10/29/2022 Encounter Details Date Type Department Care Team ([facility] st Contact Info) Description 10/29/2022 Telephone [facility] [address] [place] [address] Connor High, RON [address] [place] [address] Appointment Social History Tobacco Use Types Packs/Day [...] on filedocumented in this encounter Care Teams Fleet Driver Relationship Specialty Start Date End Date Riri Avina DO [address] [place] [address] PCP - General Family Medicine 05/05/24 documented as of this encounter
--- OUTSIDE RECORDS SUMMARY | 2024-11-04 17:17 | XMS_ITS ---
Author Organization [facility], [facility] Address [address] [place], [place] [phone] Care Team Providers Care Automation Tender Name Role Phone BRI HADLEY Primary Care Provider REASON FOR VISIT CPE Encounters Encounter Location Date Provider Diagnosis [address] [id number] 08/31/2024 BRI HADLEY PLAN OF TREATMENT No Information Progress Notes * SUSAN PAYNEDOB:[birth year] (34 yo F)Acc No.[id number]:08/31/2024 Progress Note Patient:??HARRIETT PAYNE LE Provider:??Bri Hadley DNP :1990?Age:33 Y?Sex:Fe male Date:08/31/2024 Phone: Address:[address] [place], [place] [address] Subjective: * Chief Complaints: * ?1. CPE. * Medical History:?? Objective: Assessment: Plan: * Treatment: Care Plan: * Problems:?? * Billing Information: * Visit Code:?? * Procedure Codes:?? * Sign off status: Pending * Provider:??Bri Hadley DNP Date:??0 08/31/2024
--- OUTSIDE RECORDS SUMMARY | 2024-11-04 17:17 | XMS_ITS | Encounter Summary ---
Author Organization [employer] Address [address] [facility] 7t [place] [address] Care Team Providers Care New Client Banking Services Clerk Name Role Phone Riri Avina DO Primary Care Provider [phone] Encounter Details Date Type Department Care Team (Late st Contact Info) Description 03/27/2023 Telephone [facility] [address] [place] [address] Tali Elliott DMD Social History Tobacco Use [...] on filedocumented in this encounter Care Teams New Client Banking Services Clerk Relationship Specialty Start Date End Date Riri Avina DO [address] [place] [address] PCP - General Family Medicine 05/05/24 documented as of this encounter
--- OUTSIDE RECORDS SUMMARY | 2024-11-04 17:17 | XMS_ITS ---
Author Organization [facility], [facility] Address [address] [place] [id number] Care Team Providers Care Peoplesoft Financials Name Role Phone BRI HADLEY Primary Care Provider REASON FOR VISIT PA Request MEDICATIONS Medication SIG (Take, Route, Fr equency, Duration) Notes Start Date End Date Status ALPRAZolam 0.5 MG 1 tablet Oral Twice a day for 30 days 09/16/2024 Active Encounters Encounter Location Date Provider Diagnosis [address] [id number] 09/07/2024 BRI HADLEY PLAN OF TREATMENT Medication Medication Name Sig Start Date Stop Date Notes ALPRAZolam 0.5 MG 1 tablet Oral Twice a day for 30 days Progress Notes * SUSAN PAYNEDOB:[birth year] (33 yo F)Acc No.[id number]:09/07/2024 Patient:??LEMER HARRIETT ARANA :1990?Age:33 Y?Sex:Fe male Phone: Address: [place] [address] * Refills?? Refill ALPRAZolam Tablet, 0.5 MG, Oral, 60, 1 tablet, Twice a day, 30 days, Refills=1 * true * Date:??
--- OUTSIDE RECORDS SUMMARY | 2024-11-04 17:17 | XMS_ITS | Encounter Summary ---
Author Organization [employer] Address [address] [facility] 7t [place] [address] Care Team Providers Care Signal Mechanic Name Role Phone FabriceRiri Primary Care Provider [phone] Encounter Details Date Type Department Care Team (Late st Contact Info) Description 08/14/2024 Orders Only [facility] MEDICAL [address] [place] [address] Provider, Mannie, Social History Tobacco Use Types [...] on filedocumented in this encounter Care Teams Signal Mechanic Relationship Specialty Start Date End Date Riri Avina DO [address] [place] [address] PCP - General Family Medicine 05/05/24 documented as of this encounter
--- OUTSIDE RECORDS SUMMARY | 2024-11-04 17:17 | XMS_ITS | Clinical Summary ---
Author Organization [facility] [employer] Address [address] [place] [address] 7 [place] [address] Care Team Providers Care Community Liaison Name Role Phone Riri Avina DO Primary Care Provider Allergies Active Allergy Reactions Criticality Noted Date [...] Department Care Team Description 08/14/[address] [facility] MEDICAL [address] [place] [address] ProviderMannie MD 08/08/2024 Abstract [facility] [address] [place] [address] Riri Avina DO from Last 3 Months [...] ORDERABLES F inal Result Performing Organization Address City/State/[facility] Co de Phone Number [facility] [address] [place] [address] from Last 3 Months or Most Recently Relevant to Health Maintenance Insurance [facility] , [address] [place] [address] [facility] Care Teams Community Liaison Relationship Specialty Start Date End Date Riri Avina DO [address] [place] [address] PCP - General Family Medicine 05/05/24
== END ==
LOC: HO.CARD 14:35
PROVIDERS: PCP Family Medicine; Visit Provider Physician Assistant Medical
DX: I10 Essential (primary) hypertension (principal)
CPT/HCPCS: 93306

== ENCOUNTER → 2024-11-04 14:38 | Outpatient (BNV) | payer OTHER, SELFPAY | PROVIDERS: PCP Family Medicine; Visit Provider Internal Medicine | DX: I10 Essential (primary) hypertension (principal) | CPT/HCPCS: 93306 ==

== ENCOUNTER 2024-11-09 08:41 | Outpatient (REF) | payer OTHER, SELFPAY ==
--- OUTSIDE RECORDS SUMMARY | 2024-11-09 09:19 | XMS_ITS | Encounter Summary ---
Author Organization [employer] Address [address] [place] [address] 7t [place] [address] Care Team Providers Care Ad Trafficker Name Role Phone Riri Avina DO Primary Care Provider [phone] Reason for Visit * Reason Onset Date Comments Appointment 10/29/2022 Encounter Details Date Type Department Care Team ([facility] st Contact Info) Description 10/29/2022 Telephone [facility] [address] [place] [address] Connor High, RON [address] [place] [address] Appointment Social History Tobacco Use Types Packs/Day [...] on filedocumented in this encounter Care Teams Ad Trafficker Relationship Specialty Start Date End Date Riri Avina DO [address] [place] [address] PCP - General Family Medicine 05/05/24 documented as of this encounter
--- OUTSIDE RECORDS SUMMARY | 2024-11-09 09:19 | XMS_ITS | Encounter Summary ---
Author Organization [employer] Address [address] [facility] 7t [place] [address] Care Team Providers Care Sampler First Name Role Phone Riri Avina DO Primary Care Provider [phone] Encounter Details Date Type Department Care Team (Late st Contact Info) Description 03/27/2023 Telephone [facility]ULT [facility] [address] [place] [address] Tali Elliott DMD Social History Tobacco Use [...] on filedocumented in this encounter Care Teams Sampler First Relationship Specialty Start Date End Date Riri Avina DO [address] [place] [address] PCP - General Family Medicine 05/05/24 documented as of this encounter
--- OUTSIDE RECORDS SUMMARY | 2024-11-09 09:20 | XMS_ITS ---
Author Organization [facility], [facility] Address [address] [place], [place] [phone] Care Team Providers Care Diesel Engine Operator Name Role Phone BRI HADLEY Primary Care Provider REASON FOR VISIT Referral for Breast biopsy Encounters Encounter Location Date Provider Diagnosis [address] [id number] 09/16/2024 BRI HADLEY PLAN OF TREATMENT No Information Progress Notes * SUSAN PAYNEDOB:[birth year] (33 yo F)Acc No.[id number]:09/16/2024 Patient:??HARRIETT PAYNE LE :1990?Age:33 Y?Sex:Fe male Phone: Address:[address] [place] [address] * true * Date:??
--- OUTSIDE RECORDS SUMMARY | 2024-11-09 09:20 | XMS_ITS ---
Author Organization [facility], [facility] Address [address] [place], [place] [phone] Care Team Providers Care Filter Worker Name Role Phone BRI HADLEY Primary Care Provider REASON FOR VISIT CPE Encounters Encounter Location Date Provider Diagnosis [address] [id number] 08/31/2024 BRI HADLEY PLAN OF TREATMENT No Information Progress Notes * SUSAN PAYNEDOB:[birth year] (34 yo F)Acc No.[id number]:08/31/2024 Progress Note Patient:??HARRIETT PAYNE LE Provider:??Bri Hadley DNP :1990?Age:33 Y?Sex:Fe male Date:08/31/2024 Phone: Address:[address] [place], [place] [address] Subjective: * Chief Complaints: * ?1. CPE. * Medical History:?? Objective: Assessment: Plan: * Treatment: Care Plan: * Problems:?? * Billing Information: * Visit Code:?? * Procedure Codes:?? * Sign off status: Pending * Provider:??Bri Hadley DNP Date:??0 08/31/2024
--- OUTSIDE RECORDS SUMMARY | 2024-11-09 09:20 | XMS_ITS ---
Author Organization [facility], [facility] Address [address] [place] [id number] Care Team Providers Care Timber Incisor Operator Name Role Phone BRI HADLEY Primary Care Provider REASON FOR VISIT PA Request MEDICATIONS Medication SIG (Take, Route, Fr equency, Duration) Notes Start Date End Date Status ALPRAZolam 0.5 MG 1 tablet Oral Twice a day for 30 days 09/16/2024 Active Encounters Encounter Location Date Provider Diagnosis [address] [id number] 09/07/2024 BRI HADLEY PLAN OF TREATMENT Medication Medication Name Sig Start Date Stop Date Notes ALPRAZolam 0.5 MG 1 tablet Oral Twice a day for 30 days Progress Notes * SUSAN PAYNEDOB:[birth year] (33 yo F)Acc No.[id number]:09/07/2024 Patient:??HARRIETT PAYNE :1990?Age:33 Y?Sex:Fe male Phone: Address: [place] [address] * Refills?? Refill ALPRAZolam Tablet, 0.5 MG, Oral, 60, 1 tablet, Twice a day, 30 days, Refills=1 * true * Date:??
--- OUTSIDE RECORDS SUMMARY | 2024-11-09 09:20 | XMS_ITS | Encounter Summary ---
Author Organization [employer] Address [address] [facility] 7t [place] [address] Care Team Providers Care Glacing Machine Tender Name Role Phone FabriceRiri Primary Care Provider [phone] Encounter Details Date Type Department Care Team (Late st Contact Info) Description 08/14/2024 Orders Only [facility] MEDICAL [address] [place] [address] Provider, Mannie, Social History Tobacco Use Types [...] on filedocumented in this encounter Care Teams Glacing Machine Tender Relationship Specialty Start Date End Date Riri Avina DO [address] [place] [address] PCP - General Family Medicine 05/05/24 documented as of this encounter
--- OUTSIDE RECORDS SUMMARY | 2024-11-09 09:20 | XMS_ITS | Clinical Summary ---
Author Organization [facility] [employer] Address [address] [place] [address] 7t [place] [address] Care Team Providers Care Warp Scouring Vat Tender Name Role Phone Riri Avina DO Primary Care Provider [phone] Allergies Active Allergy Reactions Criticality Noted Date [...] Department Care Team Description 08/14/2024 Orders Only [facility] MEDICAL [address] [place] [address] Provider, MD Mannie from Last 3 Months Immunizations Name Administration [...] 12:00 AM EST) Swab us Historical Provider LAB CYTOLOGY ORDERABLES F inal Result Performing Organization Address City/State/[facility] Co de Phone Number [facility] [address] [place] [address] from Last 3 Months or Most Recently Relevant to Health Maintenance Insurance [facility] , [address] [place] [address] [facility] Care Teams Warp Scouring Vat Tender Relationship Specialty Start Date End Date Riri Avina DO [address] [place] [address] PCP - General Family Medicine 05/05/24
[2024-11-09 12:01] LABS: TSH reflex Free T4 6.19 uIU/mL (0.32-4.0)
[2024-11-09 14:12] LABS: Free T4 (Free Thyroxine) 0.92 ng/dL (0.71-1.85)
== END 2024-11-09 08:42 | disposition home or self-care (01) ==
LOC: HO.WFDLDS 08:41
PROVIDERS: Visit Provider Physician Assistant Medical
DX: E87.6 Hypokalemia (principal); R79.89 Other specified abnormal findings of blood chemistry
CPT/HCPCS: 36415; 84132; 84439; 84443

== ENCOUNTER 2024-11-12 08:45 | Outpatient (AMB) | payer OTHER, SELFPAY ==
--- NOTE | 2024-11-12 09:07 | A.OFFPC_ITS ---
Vital Signs 11/12/24 09:14 Height 5 ft 3 in Weight 141 lb BMI 25.0 BP 116/78 Blood Pressure Location Rt brachial Position Sitting Respiration 12 Pulse 101 H Pulse Source Pulse Oximeter Temp 98.5 F Temp Source Oral Pulse Oximetry (%) 96 Oxygen Delivery Method Room Air Intake Visit Reasons: Possible kidney stone Intake Note: Patient presents in the office today for a possibility of a kidney stone. Paint Trimmer Pipe Bowls Required: No Allergies sumatriptan [SUMATRIPTAN] Allergy (Severe, Verified 11/12/24 09:09) THROAT SWELLING Tobacco use date assessed: 11/12/24 Dental Screening Dental Screen Date: 11/12/24 Did you have a dental visit in the last 12 months?: Yes Did you have a dental problem in the last 6 months where you did not have access to dental care?: No Was dental information given to patient?: No HPI HPI Comments History of Present Illness Details This is a 34-year-old female with a past medical history of PCOS, recurrent nephrolithiasis, chronic pain, colon polyps, hypertension, insomnia, anxiety, prior obesity resolved on GLP 1 therapy, eczema presenting for flank pain. The symptoms began 3-1/2 weeks ago. She endorses urinary frequency and right flank pain described as colicky and sharp. It is lasting for about an hour when present in his rated an 8/10. Unfortunately [facility] does not take her insurance anymore, and she does not have an appointment yet with her new urologist that she was referred to at [facility]. She is pushing fluids. Omlh-nad-tguhuox pain relievers do not help. No fever or chills, and no fever at appointment today. Patient says that Urology generally gives oxycodone and zofran for stones. Her TSH level remains mildly elevated. She has fatigue, and she has gained a little bit of weight back since being off the GLP 1. Patient recalls being treated with Synthroid when she was younger for hypothyroidism. She has a family history of hypothyroidism. She started the potassium supplement. She wants to stay on chlorthalidone because her blood pressure has been very well-controlled since she started it, and she also feels it helps with fluid retention. She is taking vitamin-D, and she endorses improved energy. ROS: Constitutional: No unexplained weight loss, fever, chills or night sweats Respiratory: No shortness of breath Cardiovascular: No chest pain Gastrointestinal: No anorexia, nausea, vomiting or diarrhea. No abdominal pain or blood in stool. No diarrhea or constipation. Genitourinary: No dysuria, hematuria. No vaginal discharge or bleeding. Skin: No rash Physical exam: Constitutional: Alert, in no distress. Appears comfortable. Head: Normocephalic. Neck: Supple, Full range of motion. No lymphadenopathy Respiratory: Clear to auscultation. Cardiovascular: S1 S2 regular. No murmurs Gastrointestinal: Abdomen soft, non-tender, non-distended. Normal bowel sounds. No palpable masses. Genitourinary: No costovertebral angle tenderness. Skin: No rashes Extremities: Warm and well perfused. No clubbing, cyanosis or edema. Psychiatric: Normal mood and affect [facility] Medical History (Updated 11/12/24 @ 10:01 by HAILEY Mendoza) PCOS (polycystic ovarian syndrome) Low vitamin D level Hypothyroid Right flank pain Family history of melanoma Positive TRISH (antinuclear antibody) Elevated TSH Low blood potassium Contraception management Eczema History of gestational diabetes Insomnia Former smoker Chronic pain Colon polyps Family history of cancer Imbalance Memory loss Headache Kidney stones Anxiety HTN (hypertension) Surgical History (Updated 10/01/24 @ 15:53 by Pohebe Millan MA) Hx of tonsillectomy Family History Mother HTN (hypertension) Cardiovascular disease Thyroid disorder Father HTN (hypertension) Cancer Maternal Grandmother HTN (hypertension) High cholesterol Diabetes Cardiovascular disease Cancer Paternal Grandfather HTN (hypertension) High cholesterol Cancer Sister Asthma Social History (Updated 11/12/24 @ 09:11 by Liz Syed MA) Household Members: Significant Other and Children Housing: House Are you a primary healthcare interpreter to a significant other at home: Yes Do you presently have visiting nurse or other home services: No Alcohol intake: current Alcohol intake frequency: a few times a month Patient Tobacco Use Status: Former Tobacco user Cigarettes Per Day: 10 Years Smoked: 10 e-Cigarette/Vaping Use: Never Used Second Hand Smoke Exposure: No service: No Current occupational status: unemployed Current occupational exposures/hazards: No Cognitive needs: No Hearing needs: No Vision needs: No Questionnaire PHQ-9 Over the last 2 weeks, how often have you been bothered by any of the following problems? 1. Little interest or pleasure in doing things: not at all 2. Feeling down, depressed, or hopeless: not at all 3. Trouble falling or staying asleep, or sleeping too much: several days 4. Feeling tired or having little energy: several days 5. Poor appetite or overeating: not at all 6. Feeling bad about yourself - or that you are a failure or have let yourself or your family down: not at all 7. Trouble concentrating on things, such as reading the newspaper or watching television: not at all 8. Moving or speaking so slowly that other people could have noticed. Or the opposite - being so fidgety or restless that you have been moving around a lot more than usual: not at all 9. Thoughts that you would be better off or of hurting yourself in some way: not at all Total score: 2 Depression Screening Interpretation: Negative Depression Screening Done: Yes 68603 - PHQ-9 Billing: Patient declined-do not bill Source: Developed by Drs. Karthik Felton, Kristie Barrientos, Dave Brown and colleagues, with an educational joan from [employer]. Thrive Questionnaire Date Thrive assessed: 11/12/24 I am a: Patient What is your living situation today?: I have a steady place to live Within the past 12 months, did the food you bought not last and you didn't have the money to get more?: Never true Within the past 12 months, did you worry whether your food would run out before you got money to buy more?: Never true Do you have trouble paying for medicines?: No Do you have trouble getting transportation to medical appointments?: No Do you have trouble paying your heating and electricity bill?: No Do you have trouble taking care of your child, family member or friend?: No Do you have trouble with day-to-day activities such as bathing, preparing meals, shopping, managing finances, etc.?: No Are you currently unemployed and looking for a job?: I choose not to answer this question Are you interested in more education?: No Please select the resources that you would like help with: None Currently or been in a relationship where the following occur: No concerns reported THRIVE Score: 0 AUDIT C Alcohol Use Questionnaire (AUDIT-C) 1. How often do you have a drink containing alcohol?: Monthly or less 2. How many drinks containing alcohol do you have on a typical day when you are drinking?: 1 or 2 3. How often do you have six or more drinks on one occasion?: Never Total Score: 1 Score Reviewed/Action Taken: No THIERNO-7 AMB Questionnaire THIERNO-7 Date THIERNO - 7 assessed: 11/12/24 Feeling nervous, anxious, or on edge: 0 = Not at all Not being able to stop or control worryin = Not at all Worrying too much about different things: 0 = Not at all Trouble relaxin = Not at all Being so restless that it is hard to sit still: 1 = Several days Becoming easily annoyed or irritable: 0 = Not at all Feeling afraid as if something awful might happen: 0 = Not at all Total THIERNO-7 score (0-4 normal; 5-9 mild; 10-14 moderate; 15-21 severe): 1 Source: Developed by Drs. Karthik Felton, Kristie Barrientos, Dave Brown and colleagues, with an educational joan from [employer]. THIERNO-7 Assessment Billing THIERNO-7 Assessment Tool: THIERNO-7 Assessment 04894 Physical exam (Primary Care) Vital Signs: Last Vital Signs Temp 98.5 F 11/12/24 09:14 Pulse 101 H 11/12/24 09:14 Resp 12 11/12/24 09:14 BP 116/78 11/12/24 09:14 Pulse Ox 96 11/12/24 09:14 Oxygen Delivery Method Room Air 11/12/24 09:14 BMI result Body Mass Index 25.0 Tobacco/Smoking Status: Tobacco use Status Tobacco use date assessed 11/12/24 11/12/24 09:17 Patient Tobacco Use Status Former Tobacco user 11/12/24 09:17 e-Cigarette/Vaping Use Never Used 11/12/24 09:17 PHQ-9: PHQ-9 Score PHQ-9: Total score 2 11/12/24 10:04 Depression Screening Interpretation: Negative Thrive Assessment: Date of Thrive Assessment Date Thrive assessed 11/12/24 11/12/24 09:17 Currently or been in a relationship where the following occur: No concerns reported Coding Level of Care Code Est Pt Level 4 (84550) Complex EM visit Add On G2211 Diagnoses Low vitamin D level R79.89 Hypothyroid E03.9 Right flank pain R10.9 Additional Codes THIERNO-7 Assessment Billing - THIERNO-7 Assessment Tool: THIERNO-7 Assessment 68180 ([id number]) Assessment & Plan Assessment & Plan (1) Low vitamin D level: Code(s): R79.89 - Other specified abnormal findings of blood chemistry Category: Medical Plan: Continue vitamin-D and repeat lab in 6 weeks. (2) Hypothyroid: Code(s): E03.9 - Hypothyroidism, unspecified Category: Medical Plan: Start levothyroxine 25 mcg daily. Recheck TSH in 6 weeks. Side effects and administration reviewed. (3) Right flank pain: Code(s): R10.9 - Unspecified abdominal pain Category: Medical Plan: Patient says symptoms are similar to prior episodes of nephrolithiasis. She has a pending urology referral that was waiting on records transferring. She signed a release for this already. Patient is afebrile. Abdominal exam benign. Acute pancreatitis, cholecystitis, appendicitis, diverticulitis, ovarian torsion, obstruction all unlikely given clinical presentation. Check CBC and CMP. Urine dip negative for UTI. I sent this to lab for UA and culture to be cautious. Ordered KUB and stat ultrasound. Warning signs warranting ER evaluation reviewed. Refilled ondansetron as needed for nausea. I will send a short term prescription for oxycodone to use as needed for severe pain. Advised this is a controlled substance. It is habit forming. Do not drive or operate heavy machinery drink alcohol with this. It is sedating and causes dizziness. Patient verbalizes understanding and accepts plan. Plan Follow up based on results for flank pain and in 6 weeks for other medical problems. Orders: Orders Basic Metabolic Panel 6 Weeks E87.6 - Hypokalemia, R79.89 - Other specified a bnormal findings of blood chemistry UA w Microscopic Today R10.9 - Unspecified abdominal pain, R39.9 - Unspecified symptoms and signs involving the genitourinary system US retroperitoneal comp Today R10.9 - Unspecified abdominal pain XR KUB Today R10.9 - Unspecified abdominal pain AMB Urinalysis Dipstick Today N20.0 - Calculus of kidney TSH reflex Free T4 6 Weeks E87.6 - Hypokalemia, R79.89 - Other specified abnormal findings of blood chemistry Complete Blood Count Auto Diff Today R10.9 - Unspecified abdominal pain Comprehensive Met. Panel Today R10.9 - Unspecified abdominal pain Urine Culture Today R10.9 - Unspecified abdominal pain, R39.9 - Unspecified symptoms and signs involving the genitourinary system Vitamin D 1,25 dihydroxy 6 Weeks R79.89 - Other specified abnormal findings of blood chemistry Medications: New levothyroxine 25 mcg PO DAILY 90 tabs 0RF oxycodone Partial Fill upon patient request. 5 mg PO Q8H PRN 14 tabs 0RF pain Refilled ondansetron HCl 8 mg PO Q8H PRN 30 tabs 0RF nausea and vomiting
--- OUTSIDE RECORDS SUMMARY | 2024-11-12 09:09 | XMS_ITS | Encounter Summary ---
Author Organization [employer] Address [address] [place] [address] [address] [place] [address] Care Team Providers Care Metal Wire Technician Name Role Phone Riri Avina DO Primary Care Provider [phone] Reason for Visit * Reason Onset Date Comments Appointment 10/29/2022 Encounter Details Date Type Department Care Team ([facility] st Contact Info) Description 10/29/2022 Telephone [facility] ADULT DENTAL [address] [place] [address] Connor High, RON [address] [place] [address] Appointment Social History Tobacco Use Types Packs/Day [...] on filedocumented in this encounter Care Teams Metal Wire Technician Relationship Specialty Start Date End Date Riri Avina DO [address] [place] [id number] PCP - General Family Medicine 05/05/24 documented as of this encounter
--- OUTSIDE RECORDS SUMMARY | 2024-11-12 09:09 | XMS_ITS ---
Author Organization [facility], [facility] Address [address] [place] [id number] Care Team Providers Care Nutrition Teacher Name Role Phone BRI HADLEY Primary Care Provider [phone] REASON FOR VISIT PA Request MEDICATIONS Medication SIG (Take, Route, Fr equency, Duration) Notes Start Date End Date Status ALPRAZolam 0.5 MG 1 tablet Oral Twice a day for 30 days 09/16/2024 Active Encounters Encounter Location Date Provider Diagnosis [address] [id number] 09/07/2024 BRI HADLEY PLAN OF TREATMENT Medication Medication Name Sig Start Date Stop Date Notes ALPRAZolam 0.5 MG 1 tablet Oral Twice a day for 30 days Progress Notes * SUSAN PAYNEDOB:[birth year] (33 yo F)Acc No.[id number]:09/07/2024 Patient:??HARRIETT PAYNE :1990?Age:33 Y?Sex:Fe male Phone: Address: [place] [address] * Refills?? Refill ALPRAZolam Tablet, 0.5 MG, Oral, 60, 1 tablet, Twice a day, 30 days, Refills=1 * true * Date:??
--- OUTSIDE RECORDS SUMMARY | 2024-11-12 09:09 | XMS_ITS | Encounter Summary ---
Author Organization [employer] Address [address] [facility] [address] [place] [address] Care Team Providers Care Ironer Machine Name Role Phone Riri Avina DO Primary Care Provider Encounter Details Date Type Department Care Team (Late st Contact Info) Description 03/27/2023 Telephone [facility] ADULT DENTAL [address] [place] [address] Tali Elliott DMD Social History Tobacco Use [...] on filedocumented in this encounter Care Teams Ironer Machine Relationship Specialty Start Date End Date Riri Avina DO [address] [place] [address] PCP - General Family Medicine 05/05/24 documented as of this encounter
--- OUTSIDE RECORDS SUMMARY | 2024-11-12 09:09 | XMS_ITS | Encounter Summary ---
Author Organization [employer] Address [address] [facility] [address] [place] [address] Care Team Providers Care Electronics Technology Department Chair Name Role Phone FabriceRiri Primary Care Provider Encounter Details Date Type Department Care Team (Late st Contact Info) Description 08/14/2024 Orders Only [facility] MEDICAL [address] [place] [address] Provider, Mannie, Social History Tobacco Use Types [...] on filedocumented in this encounter Care Teams Electronics Technology Department Chair Relationship Specialty Start Date End Date Riri Avina DO [address] [place] [address] PCP - General Family Medicine 05/05/24 documented as of this encounter
--- OUTSIDE RECORDS SUMMARY | 2024-11-12 09:09 | XMS_ITS | Clinical Summary ---
Author Organization [facility] [employer] Address [address] [place] [address] [address] [place] [address] Care Team Providers Care Pneumatic Tool Operator Name Role Phone Riri Avina DO Primary Care Provider [phone] Allergies Active Allergy Reactions Criticality Noted Date [...] Department Care Team Description 08/14/2024 Orders Only [facility] MEDICAL [address] [place] [address] Provider, MD Mannie from Last 3 Months [...] ORDERABLES F inal Result Performing Organization Address City/State/[facility] Co de Phone Number [facility] [address] [place] [address] from Last 3 Months or Most Recently Relevant to Health Maintenance Insurance [facility] , [address] [place] [address] [facility] Care Teams Pneumatic Tool Operator Relationship Specialty Start Date End Date Riri Avina DO [address] [place] [id number] PCP - General Family Medicine 05/05/24
--- OUTSIDE RECORDS SUMMARY | 2024-11-12 09:09 | XMS_ITS ---
Author Organization [facility] Address [address] [place], [place] [id number] Care Team Providers Care Steel Die Press Set Up Operator Name Role Phone BRI HADLEY Primary Care Provider [phone] REASON FOR VISIT Referral for Breast biopsy Encounters Encounter Location Date Provider Diagnosis [address] [id number] 09/16/2024 BRI HADLEY PLAN OF TREATMENT No Information Progress Notes * SUSAN PAYNEDOB:[birth year] (33 yo F)Acc No.[id number]:09/16/2024 Patient:??HARRIETT PAYNE LE :1990?Age:33 Y?Sex:Fe male Phone: Address:[address] [place] [address] * true * Date:??
--- OUTSIDE RECORDS SUMMARY | 2024-11-12 09:09 | XMS_ITS | Patient Health Record ---
Author Organization [facility], [facility] Address [address], [place] [address] Care Team Providers Care Kiln Feeder Name Role Phone MAE MADISON Primary Care Provider Susan Frank Unavailable [phone] ANGELLA COHEN Unavailable [phone] ALLERGIES Allergen (clinical drug ingredient) Drug/Non Drug Allergy documented on EMR Reaction Allergy Type Onset Date Status sumatriptan SUMAtriptan Throat closure Drug Allergy Active REASON FOR REFERRAL Reason please order pelvic and transvag ultrasound for dx right pelvic pain at [facility] Diagnosis 1 Pelvic pain (R10.2) Referral Organization [facility] Referring Provider First Name MAE Referring Provider Last Name [place] Referring Provider Speciality Nurse Rory umaña Referred Organization [facility] Referred Address [address] [place], [place], Referred Provider Specialty Diagnostic R adiology General Notes ALINA HERNANDEZ 0 02/27/2024 09:50:45 AM >order for, demographics, insurance info and order faxed to [facility] [phone] Referral Priority Urgent Reason please order diagnos tic mammo bilateral and left breast ultrasound limited at [facility] specifics in order per provider- due to approx. pea-size mass on left breast located 10:00 to nipple Diagnosis 1 Mass of upper inner quadrant of left breast (N63.22) Referral Organization [facility] Referring Provider First Name ANGELLA Referring Provider Last Name NOEL Referring Provider Speciality Preventive Medicine Referred Organization [facility] Referred Address [address] [place], [place],[address] Referred Provider Specialty Diagnostic X -Ray General Notes BRIDGET NEFF 08/05 11:34:02 AM > Radiology Form, Referral, OV Note and demographics faxed to [facility] [phone]., ALINA HERNANDEZ 08/31/2024 02:23:31 PM >Received correspondance via fax requesting corrected orders per scheduling and insurance guidelines. Corrected DI orders and referral have been faxed to [facility] Diagnostic Scheduling [phone] Referral Priority Routine MEDICATIONS Medication SIG (Take, [...] HCl 10 MG 1 tablet at be dtiwi as needed Oral Once a day for [...] about q uitting Section Notes: Lives in [place], [place] with fiance & son [place] fiance & son [place] PROBLEMS Problem Type ICD Code Onset Dates Problem Status W/U Status Risk SNOMED Code Notes Problem Polycystic ovarian syndrome (E28.2) Active confirmed Polycystic ovar y syndrome (disorder) (616395048) Problem Sleep disorder, unspecified (G47.9) Active confirmed Sleep disorder (13782141) Problem Essential (primary) hypertension (I10) Active confirmed Essential hypertension (92224619) Problem Calculus of kidney (N20.0) Active confirmed Calculus of kidney (68028056) Problem Panic disorder [episodic paroxysmal anxiety] (F41.0) Active confirmed Panic disor yudy (402470230) Problem Obesity (BMI 30-39.9) (E66.9) Active confirmed Obesity (445241449) VITAL SIGNS Heart Rate 89 /min 08/19/2024 Height-cm 160.02 cm 08/19/2024 Oximetry 98 % 08/19/2024 Blood pressure diastolic 82 mm Hg 08/19/2024 Weight-kg 67.77 kg 08/19/2024 Height 63 in 08/19/2024 Blood pressure systolic 128 mm Hg 08/19/2024 Weight 149.4 lbs 08/19/2024 BMI 26.46 kg/m2 08/19/2024 Encounters Encounter Location Date Provider Diagnosis [address] [id number] 01/28/2024 MEA MADISON Generalized abdomina l pain R10.84 ; Epigastric pain R10.13 ; Rash R21 ; Panic disorder [episodic paroxysmal anxiety] F41.0 and Sleep disorder, unspecified G47.[address] [id number] 02/20/2024 MAE MADISON Generalized abdomina l pain R10.84 and Tendonitis M77.[address] [id number] 03/05/2024 MAE MADISON Panic disorder [episodic paroxysmal anxiety] F41.[address] [id number] 04/13/2024 MAE MADISON Essential (primary) hypertension I10 [address] [id number] 08/31/2024 MAE MADISON [address] [place] [id number] 12/02/2023 MAE MADISON Polyp of colon K63.5 ; Epigastric pain R10.13 and Rash R21 [address] [id number] 12/11/2023 MAE LEONIE Rash R21 and Polyp o f colon, unspecified part of colon, unspecified type K63.[address] [id number] 12/24/2023 MAE MADISON Generalized abdomina l pain R10.84 ; Polyp of colon K63.5 and Epigastric pain R10.[address] [id number] 12/31/2023 MAE MADISON Rash and nonspecific skin eruption R21 and Generalized abdominal pain R10.[address] [id number] 02/26/2024 ANGELLA COHEN Flank pain R10.9 and Calculus of kidney N20.[address] [id number] 03/17/2024 Susan Frank Tendonitis M77.[address] [id number] 04/10/2024 ANGELLA COHEN Essential (primary) hypertension I10 and Jaw pain R68.[address] [id number] 04/22/2024 MAE MADISON Calculus of kidney N20.0 ; Generalized abdominal pain R10.84 ; Generalized abdominal tenderness R10.817 ; Acute bilateral thoracic back pain M54.6 ; Epigastric pain R10.13 ; Essential (primary) hypertension I10 ; PCOS (polycystic ovarian syndrome) E28.2 and Food allergy Z91.[address] [id number] 05/18/2024 MAE MADISON Obesity (BMI 30-39.9 ) E66.9 ; Encounter for contraceptive management, unspecified Z30.9 and Essential (primary) hypertension I10 [address] [id number] 08/19/2024 ANGELLA COHEN Mass of upper inner quadrant of left breast N63.22 [facility], [facility] [address] [facility] [place] [id number] 11/21/2023 ANGELLA GAURAVSTUART [facility], [facility] [address] [facility] [id number] 11/22/2023 [facility], [facility] [address] [facility], [place] [id number] 11/26/2023 [facility], [facility] [address] [facility] [id number] 11/28/2023 [facility], [facility] [address] [facility] [id number] 12/09/2023 [facility] Polyp of colon K63.5 [facility], [facility] [address] [facility], [place] [id number] 12/16/2023 [facility] Polyp of colon K63.5 [facility], [facility] [address] [facility], [place] [id number] 12/27/2023 [facility], [facility] [address] [facility], [place] [id number] 01/06/2024 [facility] Generalized abdomina l pain R10.84 [facility], [facility] [address] [facility] [id number] 01/06/2024 [facility], [facility] [address] [facility] [place] [id number] 01/10/2024 [facility], [facility] [address] [facility] [place] [id number] 01/13/2024 [facility], [facility] [address] [facility] [place] [id number] 01/17/2024 [facility], [facility] [address] [facility], [place] [id number] 01/28/2024 [facility], [facility] [address] [facility] [place] [id number] 02/11/2024 [facility], [facility] [address] [facility], [place] [id number] 02/12/2024 [facility], [facility] [address] [facility], [place] [id number] 02/27/2024 [facility] Pelvic pain R10.2 [facility], [facility] [address] [facility], [place] [id number] 02/27/2024 [facility], [facility] [address] [facility], [place] [id number] 02/28/2024 [facility], [facility] [address] [facility], [place] [id number] 03/05/2024 [facility], [facility] [address] [facility], [place] [id number] 03/13/2024 [facility], [facility] [address] [facility] [id number] 04/16/2024 [facility], [facility] [address] [facility] [id number] 04/22/2024 [facility], [facility] [address] [facility], [place] [id number] 04/27/2024 [facility], [facility] [address] [facility], [place] [id number] 05/11/2024 [facility] Panic disorder [episodic paroxysmal anxiety] F41.0 [facility], [facility] [address] [facility], [place] [id number] 06/08/2024 [facility] Obesity (BMI 30-39.9 ) E66.9 [facility], [facility] [address] [facility], [place] [id number] 06/11/2024 [facility], [facility] [address] [facility], [place] [id number] 07/06/2024 [facility] Obesity (BMI 30-39.9 ) E66.9 [facility], [facility] [address] [facility], [place] [id number] 07/09/2024 [facility], [facility] [address] [facility], [place] [id number] 07/20/2024 [facility], [facility] [address] [facility], [place] [id number] 07/27/2024 [facility] Obesity (BMI 30-39.9 ) E66.9 [facility], [facility] [address] [facility], [place] [id number] 08/06/2024 [facility], [facility] [address] [facility], [place] [id number] 08/17/2024 [facility], [facility] [address] [facility], [place] [id number] 08/26/2024 MAE MADISON [facility], [facility] [address], [place] [id number] 08/26/2024 MAE MADISON Essential (primary) hypertension I10 ; Encounter for contraceptive management, unspecified Z30.9 and Obesity (BMI 30-39.9) E66.9 [facility] [address], [place] [id number] 09/07/2024 MAE MADISON [address] [id number] 09/16/2024 MAE MADISON ASSESSMENTS Encounter Date Diagnosis Assessment Notes Treatment Notes Treatment Clinical Notes Section Notes 12/02/2023 Polyp of colon (ICD-10 - K63.5) [...] Still having severe pain. Placed call to [facility] to retrieve pathology report of removed [...] and coordination of care. Zac Munoz BSN, CORPORATE COORDINATOR student saw the patient and formulated the note under direct supervision of Dr. Mae Madison DNP. 12/31/2023 Rash and nonspecific skin eruption (ICD-10 - R21) 01/06/2024 Generalized abdominal pain (ICD-10 - R10.84) 01/28/2024 Epigastric pain (ICD-10 - R10.13) see above 01/28/2024 Generalized abdominal pain (ICD-10 - R10.84) We spent a great deal of time discussing trauma and its effect on the NAILER OPERATOR, sympathetic vs parasympathetic, activating vagus nerve to [...] is interested in GI mapping Ordered through [facility] and also gave her the name so she can research online as well 02/27/2024 Pelvic pain (ICD-10 - R10.2) 03/05/2024 Panic disorder [episodic paroxysmal anxiety] (ICD-10 - F41.0) 03/17/2024 Tendonitis (ICD-10 - M77.9) Trigger point injection done with 2.5 cc of lidocaine, marcain, triamcinolone 08/05/0.[address] Mae Madison into bilateral wrist joints. Bilateral wrist injections just ulnar to the palmaris longus tendon and at the proximal wrist crease. With immediate relief- able to have increased ROM in fingers Encouraged to wear brace at night if needed Verbalized understanding 04/10/2024 Essential (primary) hypertension (ICD-10 - I10) Pt instructed to bead picker losartan Rx To take BP at [...] time discussing her most resent experience at [facility]-she states it was a terrible experience [...] Medicare eligibility criteria for contraceptive use: http://www.who.int/re [facility]/pub lications/mec/index.h tm [employer] (ACOG) Level [...] work excusal. 12/02/2023 Rash (ICD-10 - R21) 04/22/2024 Generalized abdominal tenderness (ICD-10 - R10.817) 01/28/2024 Panic disorder [episodic paroxysmal anxiety] (ICD-10 [...] spent with patient 30 minutes which includes rjsn-zy-[id number] encounter and coordination of care. 04/22/2024 PCOS [...] order labs today. Will consider referral to [facility] but these appointments take more than a yr so we will work up what we can here first 04/13/2024 Other Transvag US derek robison, will have f/u in office next week to review and repeat BP Total time spent with patient 39 minutes which includes face to face visit, education and coordination of care. 12/02/2023 Other Total time spen t with patient 32 minutes which includes face to face visit, education and coordination of care. 12/11/2023 Other Total time spen t with patient 20 minutes which includes face to face visit, education and coordination of care. 12/24/2023 Other This visit was performed by RESIDENTIAL INSTRUCTOR student Katie Ramahcandran, PAT under the supervision of Mae Madison, DNP, TRAINING ANALYST, RESIDENTIAL INSTRUCTOR-C, VWCN. 02/26/2024 Other Pt also followi ng [...] REFLEXES (9168 2) 04/22/2024 COMPREHENSIVE METABOLIC PANEL (14872) CBC (INCLUDES DIFF/PLT) (6399) DHEA SULFATE (402) 04/22/2024 LH (615) 04/22/2024 PROLACTIN (746) 04/22/2024 ANDROSTENEDIONE (03607) 04/22/2024 Insurance Providers Payer Name Payer Address Payer Phone Subscriber Number Group Number Insured Name Patient Relationship to Insured Coverage Start Date Coverage End Date [address]NE [address] [place] [address] [place] [phone] [id number] SUSAN RM Self - patient is the [...]
--- OUTSIDE RECORDS SUMMARY | 2024-11-12 09:09 | XMS_ITS ---
Author Organization [facility], [facility] Address [address] [place], [place] [id number] Care Team Providers Care Driver/Sales Workers Name Role Phone BRI HADLEY Primary Care Provider REASON FOR VISIT CPE Encounters Encounter Location Date Provider Diagnosis [address] [id number] 08/31/2024 BRI HADLEY PLAN OF TREATMENT No Information Progress Notes * SUSAN PAYNEDOB:[birth year] (34 yo F)Acc No.[id number]:08/31/2024 Progress Note Patient:??HARRIETT PAYNE LE Provider:??Bri Hadley DNP :1990?Age:33 Y?Sex:Fe male Date:08/31/2024 Phone: Address:[address] [place], [place] [address] Subjective: * Chief Complaints: * ?1. CPE. * Medical History:?? Objective: Assessment: Plan: * Treatment: Care Plan: * Problems:?? * Billing Information: * Visit Code:?? * Procedure Codes:?? * Sign off status: Pending * Provider:??Bri Hadley DNP Date:??0 08/31/2024
[2024-11-12 09:14] VITALS: BP 116/78; PULSE 101; RESP 12; TEMP 36.9; O2SAT 96; BMI 25.0
== END 2024-11-12 12:53 | disposition home or self-care (01) ==
LOC: HO.HMCFM 08:46
PROVIDERS: PCP Family Medicine; Visit Provider Physician Assistant Medical
DX: R79.89 Other specified abnormal findings of blood chemistry (principal); E03.9 Hypothyroidism, unspecified; R10.9 Unspecified abdominal pain; N20.0 Calculus of kidney

== ENCOUNTER 2024-11-12 08:45 | Outpatient (REF) | payer OTHER, SELFPAY ==
--- OUTSIDE RECORDS SUMMARY | 2024-11-12 10:52 | XMS_ITS | Clinical Summary ---
Author Organization [facility] [employer] Address [address] [place] [address] 7[address] [place] [address] Care Team Providers Care Dressing Room Attendant Name Role Phone Riri Avina DO Primary Care Provider [phone] Allergies Active Allergy Reactions Criticality Noted Date [...] Care Team Description 08/14/[address] [facility] MEDICAL [address] [place] [address] Provider, MD Mannie from Last 3 Months [...] ORDERABLES F inal Result Performing Organization Address City/State/[facility] Co de Phone Number [facility] [address] [place] [address] from Last 3 Months or Most Recently Relevant to Health Maintenance Insurance [facility] , [address] [place] [address] [facility] Care Teams Dressing Room Attendant Relationship Specialty Start Date End Date Riri Avina DO [address] [place] [address] PCP - General Family Medicine 05/05/24
--- OUTSIDE RECORDS SUMMARY | 2024-11-12 10:52 | XMS_ITS | Encounter Summary ---
Author Organization [employer] Address [address] [place] [address] [address]t [place] [address] Care Team Providers Care Tufting Creeler Name Role Phone Riri Avina DO Primary Care Provider [phone] Reason for Visit * Reason Onset Date Comments Appointment 10/29/2022 Encounter Details Date Type Department Care Team ([facility] st Contact Info) Description 10/29/2022 Telephone [facility] [address] [place] [address] Connor High, RON [address] [place] [address] Appointment Social History Tobacco Use Types Packs/Day [...] on filedocumented in this encounter Care Teams Tufting Creeler Relationship Specialty Start Date End Date Riri Avina DO [address] [place] [address] PCP - General Family Medicine 05/05/24 documented as of this encounter
--- OUTSIDE RECORDS SUMMARY | 2024-11-12 10:52 | XMS_ITS | Encounter Summary ---
Author Organization [employer] Address [address] [facility] 7t [place] [address] Care Team Providers Care Bonded Structures Repairer Name Role Phone Riri Avina DO Primary Care Provider [phone] Encounter Details Date Type Department Care Team (Late st Contact Info) Description 03/27/2023 Telephone [facility] [address] [place] [address] Tali Elliott DMD Social History Tobacco Use [...] on filedocumented in this encounter Care Teams Bonded Structures Repairer Relationship Specialty Start Date End Date Riri Avina DO [address] [place] [address] PCP - General Family Medicine 05/05/24 documented as of this encounter
--- OUTSIDE RECORDS SUMMARY | 2024-11-12 10:52 | XMS_ITS | Encounter Summary ---
Author Organization [employer] Address [address] [facility] 7t [place] [address] Care Team Providers Care Automobile Lights Assembler Name Role Phone FabriceRiri Primary Care Provider [phone] Encounter Details Date Type Department Care Team (Late st Contact Info) Description 08/14/2024 Orders Only [facility] MEDICAL [address] [place] [address] Provider, Mannie, Social History Tobacco Use Types [...] on filedocumented in this encounter Care Teams Automobile Lights Assembler Relationship Specialty Start Date End Date Riri Avina DO [address] [place] [address] PCP - General Family Medicine 05/05/24 documented as of this encounter
== END 2024-11-12 08:46 | disposition home or self-care (01) ==
LOC: HO.LAB 08:45
PROVIDERS: PCP Family Medicine; Visit Provider Physician Assistant Medical
DX: Z13.89 Encounter for screening for other disorder (principal)
CPT/HCPCS: 81002; 96127; 99212

== ENCOUNTER 2024-11-12 10:05 | Outpatient (REF) | payer OTHER, SELFPAY ==
--- OUTSIDE RECORDS SUMMARY | 2024-11-12 11:45 | XMS_ITS | Encounter Summary ---
Author Organization [employer] Address [address] [facility] 7t [place] [address] Care Team Providers Care Grain Sacker Name Role Phone FabriceRiri Primary Care Provider [phone] Encounter Details Date Type Department Care Team (Late st Contact Info) Description 08/14/2024 Orders Only [facility] [address] [place] [address] Provider, Mannie, Social History Tobacco Use Types [...] on filedocumented in this encounter Care Teams Grain Sacker Relationship Specialty Start Date End Date Riri Avina DO [address] [place] [address] PCP - General Family Medicine 05/05/24 documented as of this encounter
--- OUTSIDE RECORDS SUMMARY | 2024-11-12 11:45 | XMS_ITS | Encounter Summary ---
Author Organization [employer] Address [address] [place] [address] 7t [place] [address] Care Team Providers Care Speech Language Pathology Assistant Name Role Phone Riri Avina DO Primary Care Provider [phone] Reason for Visit * Reason Onset Date Comments Appointment 10/29/2022 Encounter Details Date Type Department Care Team ([place] [facility] st Contact Info) Description 10/29/2022 Telephone [facility] ADULT D[facility]AL [address] [place] [address] Connor High, RON [address] [place] [address] Appointment Social History Tobacco Use Types Packs/Day [...] on filedocumented in this encounter Care Teams Speech Language Pathology Assistant Relationship Specialty Start Date End Date Riri Avina DO [address] [place] [address] PCP - General Family Medicine 05/05/24 documented as of this encounter
--- OUTSIDE RECORDS SUMMARY | 2024-11-12 11:45 | XMS_ITS | Encounter Summary ---
Author Organization [employer] Address [address] [facility] 7t [place] [address] Care Team Providers Care Infrastructure Solutions Architect Name Role Phone Riri Avina DO Primary Care Provider [phone] Encounter Details Date Type Department Care Team (Late st Contact Info) Description 03/27/2023 Telephone [facility]ULT [facility] [address] [place] [address] Tali Elliott DMD Social History Tobacco Use [...] on filedocumented in this encounter Care Teams Infrastructure Solutions Architect Relationship Specialty Start Date End Date Riri Avina DO [address] [place] [address] PCP - General Family Medicine 05/05/24 documented as of this encounter
--- OUTSIDE RECORDS SUMMARY | 2024-11-12 11:45 | XMS_ITS | Clinical Summary ---
Author Organization [facility] [employer] Address [address] [place] [address] 7t [place] [address] Care Team Providers Care Clinical Nurse Name Role Phone Riri Avina DO Primary Care Provider [phone] Allergies Active Allergy Reactions Criticality Noted Date [...] Department Care Team Description 08/14/2024 Orders Only [facility] MEDICAL [address] [place] [address] Provider, MD Mannie from Last 3 Months [...] ORDERABLES F inal Result Performing Organization Address City/State/[facility] Co de Phone Number [facility] [address] [place] [address] from Last 3 Months or Most Recently Relevant to Health Maintenance Insurance [facility] , [address] [place] [address] [facility] Care Teams Clinical Nurse Relationship Specialty Start Date End Date Riri Avina DO [address] [place] [address] PCP - General Family Medicine 05/05/24
[2024-11-12 11:48] LABS: MANUAL DIFF FLAG NO
[2024-11-12 12:06] LABS: Basophils Percent Auto 0.5 % (0-2); Eosinophils Absolute Auto 0.1 X10*3/uL (0.0-0.4); Eosinophils Percent Auto 0.6 % (0-4); Hematocrit 41.5 % (37.0-47.0); Hemoglobin 14.4 g/dl (12.0-16.0); Imm Gran Abs Auto 0.04 X10*3/uL (0.00-0.03); Imm Gran Pct Auto 0.5 % (0.0-0.4); Lymphocytes Percent Auto 24.8 % (20-40); Mean Corpuscular HGB Conc 34.7 g/dl (31.0-35.0); Mean Corpuscular Hemoglobin 29.9 pg (27.0-33.0); Mean Corpuscular Volume 86.1 fL (80.0-98.0); Mean Platelet Volume 9.3 fL (9.4-12.3); Monocytes Absolute Auto 0.5 X10*3/uL (0.1-1.2); Monocytes Percent Auto 6.6 % (2-11); Neutrophils Absolute Auto 5.5 x10*3/uL (2.0-8.3); Platelet Count 296 X10*3/uL (160-400); Red Blood Count 4.82 X10*6/uL (4.20-5.50); Red Cell Distribution Width 12.3 % (11.0-16.0); White Blood Count 8.2 X10*3/uL (4.8-10.8)
[2024-11-12 12:43] LABS: Alanine Aminotransferase 20 U/L (0-31); Albumin Level 4.3 g/dL (3.5-5.0); Alkaline Phosphatase 42 U/L (39-117); Aspartate Amino Transferase 18 U/L (5-31); Bilirubin Total 0.4 mg/dL (0.0-1.0); Blood Urea Nitrogen 14 mg/dL (9-16); Calcium 9.5 mg/dL (8.4-10.2); Estimated Glomerular Filt Rate > 60; Glucose Random 85 mg/dL (60-115); Total Protein 7.1 g/dL (6.5-8.0)
[2024-11-12 13:19] LABS: Anion Gap 13 (12-20); Carbon Dioxide 25 mmol/L (22-29); Chloride 103 mmol/L (96-108); Sodium 138 mmol/L (135-145)
[2024-11-12 15:24] LABS: Potassium 2.8 mmol/L (3.3-5.1)
== END 2024-11-12 10:06 | disposition home or self-care (01) ==
LOC: HO.WFDLDS 10:05
PROVIDERS: Visit Provider Physician Assistant Medical
DX: Z13.89 Encounter for screening for other disorder (principal)
CPT/HCPCS: 36415; 80053; 85025

== ENCOUNTER 2024-11-12 16:00 | Outpatient (REF) | payer OTHER, SELFPAY ==
--- NOTE | ~2024-11-12 | US_ITS ---
EXAMINATION: US KIDNEY RIGHT HISTORY: R10.9 - Unspecified abdominal pain TECHNIQUE: Real-time grayscale ultrasound imaging of the right kidney was performed and images were reviewed. COMPARISON: There are no prior studies for comparison. FINDINGS: The right kidney measures 12.2 x 4.1 x 4.7 cm. Renal parenchymal echotexture and thickness are normal. There are no masses. There is no hydronephrosis or renal calculi. US/US renal RT IMPRESSION: Unremarkable ultrasound of the right kidney. Electronically signed by: Karthik Armenta MD 11/13/2024 07:20 AM EDT
--- NOTE | ~2024-11-12 | XR_ITS ---
EXAMINATION: XR ABDOMEN 1 VIEW (KUB) HISTORY: R10.9 - Unspecified abdominal pain COMPARISON: There are no prior studies for comparison. FINDINGS: Two supine views of the abdomen are submitted. The bowel gas pattern is unremarkable, without evidence of mechanical obstruction. There are radiopaque tablets in the left upper quadrant, likely in the stomach. There are tiny calcifications in the pelvis which likely represent phleboliths. There are no abnormal soft tissue masses. The bones are intact. XR/XR KUB IMPRESSION: Unremarkable bowel gas pattern. Electronically signed by: Karthik Armenta MD 11/13/2024 07:22 AM EDT
--- OUTSIDE RECORDS SUMMARY | 2024-11-12 17:58 | XMS_ITS | Encounter Summary ---
Author Organization [email or web address] Address [address] [facility] 7t [place] [address] Care Team Providers Care Computer Systems Integrator Name Role Phone FabriceRiri Primary Care Provider [phone] Encounter Details Date Type Department Care Team (Late st Contact Info) Description 08/14/2024 Orders Only [facility] MEDICAL [address] [place] [address] Provider, Mannie, Social History Tobacco Use Types [...] on filedocumented in this encounter Care Teams Computer Systems Integrator Relationship Specialty Start Date End Date Riri Avina DO [address] [place] [address] PCP - General Family Medicine 05/05/24 documented as of this encounter
--- OUTSIDE RECORDS SUMMARY | 2024-11-12 17:58 | XMS_ITS | Encounter Summary ---
Author Organization [employer] Address [address] [place] [address] 7t [place] [address] Care Team Providers Care Production Control Technologist Name Role Phone Riri Avina DO Primary Care Provider [phone] Reason for Visit * Reason Onset Date Comments Appointment 10/29/2022 Encounter Details Date Type Department Care Team ([facility] st Contact Info) Description 10/29/2022 Telephone [facility] ADULT DENTAL [address] [place] [address] Connor High, RON [address] [place] [address] Appointment Social History Tobacco Use Types Packs/Day [...] on filedocumented in this encounter Care Teams Production Control Technologist Relationship Specialty Start Date End Date Riri Avina DO [address] [place] [address] PCP - General Family Medicine 05/05/24 documented as of this encounter
--- OUTSIDE RECORDS SUMMARY | 2024-11-12 17:58 | XMS_ITS | Encounter Summary ---
Author Organization [employer] Address [address] [facility] 7t [place] [address] Care Team Providers Care Commissioner Of Relocation Services Name Role Phone Riri Avina DO Primary Care Provider [phone] Encounter Details Date Type Department Care Team (Late st Contact Info) Description 03/27/2023 Telephone [facility] ADULT DENTAL [address] [place] [address] Tali Elliott DMD Social History Tobacco Use [...] on filedocumented in this encounter Care Teams Commissioner Of Relocation Services Relationship Specialty Start Date End Date Riri Avina DO [address] [place] [address] PCP - General Family Medicine 05/05/24 documented as of this encounter
--- OUTSIDE RECORDS SUMMARY | 2024-11-12 17:58 | XMS_ITS | Clinical Summary ---
Author Organization [facility] [employer] Address [address] [place] [address] 7t [place] [address] Care Team Providers Care Linemarker Name Role Phone Riri Avina DO Primary Care Provider [phone] Allergies Active Allergy Reactions Criticality Noted Date [...] Team Description 08/14/[address] [facility] MEDICAL [address] [place] [address] Provider, MD Mannie from Last 3 Months [...] ORDERABLES F inal Result Performing Organization Address City/State/[facility] Co de Phone Number [facility] [address] [place] [address] from Last 3 Months or Most Recently Relevant to Health Maintenance Insurance [facility] , [address] [place] [address] [facility] Care Teams Linemarker Relationship Specialty Start Date End Date Riri Avina DO [address] [place] [address] PCP - General Family Medicine 05/05/24
== END 2024-11-12 16:01 | disposition home or self-care (01) ==
LOC: HO.US 16:00
PROVIDERS: PCP Physician Assistant Medical; Visit Provider Physician Assistant Medical
DX: R10.9 Unspecified abdominal pain (principal)
CPT/HCPCS: 74018; 76775

== ENCOUNTER → 2024-11-12 16:02 | Outpatient (BNV) | payer OTHER, SELFPAY | PROVIDERS: PCP Physician Assistant Medical; Visit Provider Radiology Diagnostic Radiology | DX: R10.9 Unspecified abdominal pain (principal) | CPT/HCPCS: 74018; 76775 ==

== ENCOUNTER 2024-11-16 08:28 | Outpatient (REF) | payer OTHER, SELFPAY ==
--- OUTSIDE RECORDS SUMMARY | 2024-11-16 08:54 | XMS_ITS ---
Author Organization [facility], [facility] Address [address] [place], [place] [id number] Care Team Providers Care Kitchen And Counter Worker Name Role Phone BRI HADLEY Primary Care Provider REASON FOR VISIT Referral for Breast biopsy Encounters Encounter Location Date Provider Diagnosis [address] [id number] 09/16/2024 BRI HADLEY PLAN OF TREATMENT No Information Progress Notes * SUSAN PAYNEDOB:[birth year] (33 yo F)Acc No.[id number]:09/16/2024 Patient:??HARRIETT PAYNE LE :1990?Age:33 Y?Sex:Fe male Phone: Address:[address] [place] [address] * true * Date:??
--- OUTSIDE RECORDS SUMMARY | 2024-11-16 08:54 | XMS_ITS | Clinical Summary ---
Author Organization [employer] Address [address] [place] [address] 7t [place] [address] Care Team Providers Care Computer Assistant Name Role Phone Riri Avina DO Primary Care Provider [phone] Allergies Active Allergy Reactions Criticality Noted Date Comments Sumatriptan Anaphylaxis High 04/28/2021 Medications amoxicillin-clav ulanate (Augmentin) 500-125 MG tabletIndication s:Dental abscess Take 1 tablet (500 mg) by mouth 3 times daily. 30 tablet 10/04/2022 Active Active Problems Problem Noted Date Diagnosed Date Abdominal pain 08/20/2024 Overview (08/20/2024): Images from the original note were not included. Immunizations Name Administration Dates Next Due INFLUENZA [...] MD LAB CYTOLOGY ORDERABLES F inal Result [facility] [address] [place] [address] from Last 3 Months or Most Recently Relevant to Health Maintenance Insurance [facility] , [facility] [address] [place] [address] [facility] Care Teams Computer Assistant Relationship Specialty Start Date End Date Riri Avina DO [address] [place] [address] PCP - General Family Medicine 05/05/24
--- OUTSIDE RECORDS SUMMARY | 2024-11-16 08:54 | XMS_ITS | Encounter Summary ---
Author Organization [employer] Address [address] [place] [address] 7t [place] [address] Care Team Providers Care Cigar Roller Name Role Phone Riri Avina DO Primary Care Provider [phone] Reason for Visit * Reason Onset Date Comments Appointment 10/29/2022 Encounter Details Date Type Department Care Team ([facility] st Contact Info) Description 10/29/2022 Telephone [facility] ADULT DENTAL [address] [place] [address] Connor High, RON [address] [place] [address] Appointment Social History Tobacco Use Types Packs/Day [...] on filedocumented in this encounter Care Teams Cigar Roller Relationship Specialty Start Date End Date Riri Avina DO [address] [place] [address] PCP - General Family Medicine 05/05/24 documented as of this encounter
--- OUTSIDE RECORDS SUMMARY | 2024-11-16 08:54 | XMS_ITS | Encounter Summary ---
Author Organization [employer] Address [address] [facility] 7t [place] [address] Care Team Providers Care Department Chairperson Name Role Phone FabriceRiri Primary Care Provider [phone] Encounter Details Date Type Department Care Team (Late st Contact Info) Description 08/14/2024 Orders Only [facility] MEDICAL [address] [place] [address] Provider, Mannie, Social History Tobacco Use Types [...] on filedocumented in this encounter Care Teams Department Chairperson Relationship Specialty Start Date End Date Riri Avina DO [address] [place] [address] PCP - General Family Medicine 05/05/24 documented as of this encounter
--- OUTSIDE RECORDS SUMMARY | 2024-11-16 08:54 | XMS_ITS ---
Author Organization [facility], [facility] Address [address] [place], [place] [address] Care Team Providers Care Cashier Parking Lot Name Role Phone BRI HADLEY Primary Care Provider [phone] REASON FOR VISIT CPE Encounters Encounter Location Date Provider Diagnosis [address] [id number] 08/31/2024 BRI HADLEY PLAN OF TREATMENT No Information Progress Notes * SUSAN PAYNEDOB:[birth year] (34 yo F)Acc No.[id number]:08/31/2024 Progress Note Patient:??HARRIETT PAYNE LE Provider:??Bri Hadley DNP :1990?Age:33 Y?Sex:Fe male Date:08/31/2024 Phone: Address:[address] [place], [place] [address], [place] Subjective: * Chief Complaints: * ?1. CPE. * Medical History:?? Objective: Assessment: Plan: * Treatment: Care Plan: * Problems:?? * Billing Information: * Visit Code:?? * Procedure Codes:?? * Sign off status: Pending * Provider:??Bri Hadley DNP Date:??0 08/31/2024
--- OUTSIDE RECORDS SUMMARY | 2024-11-16 08:54 | XMS_ITS ---
Author Organization [facility], [facility] Address [address] [place] [id number] Care Team Providers Care Repair Weaver Name Role Phone BRI HADLEY Primary Care Provider [phone] REASON FOR VISIT PA Request MEDICATIONS Medication SIG (Take, Route, Fr equency, Duration) Notes Start Date End Date Status ALPRAZolam 0.5 MG 1 tablet Oral Twice a day for 30 days 09/16/2024 Active Encounters Encounter Location Date Provider Diagnosis [address] [id number] 09/07/2024 BRI HADLEY PLAN OF TREATMENT Medication Medication Name Sig Start Date Stop Date Notes ALPRAZolam 0.5 MG 1 tablet Oral Twice a day for 30 days Progress Notes * SUSAN PAYNEDOB:[birth year] (33 yo F)Acc No.[id number]:09/07/2024 Patient:??ELMER HARRIETT ARANA :1990?Age:33 Y?Sex:Fe male Phone: Address: [place] [address] * Refills?? Refill ALPRAZolam Tablet, 0.5 MG, Oral, 60, 1 tablet, Twice a day, 30 days, Refills=1 * true * Date:??
--- OUTSIDE RECORDS SUMMARY | 2024-11-16 08:54 | XMS_ITS | Encounter Summary ---
Author Organization [employer] Address [address] [facility] 7t [place] [address] Care Team Providers Care Animal Feeder Name Role Phone Riri Avina DO Primary Care Provider Encounter Details Date Type Department Care Team (Late st Contact Info) Description 03/27/2023 Telephone [facility] ADULT DENTAL [address] [place] [address] Tali Elliott DMD Social History Tobacco Use [...] on filedocumented in this encounter Care Teams Animal Feeder Relationship Specialty Start Date End Date Riri Avina DO [address] [place] [address] PCP - General Family Medicine 05/05/24 documented as of this encounter
--- OUTSIDE RECORDS SUMMARY | 2024-11-16 08:54 | XMS_ITS | Patient Health Record ---
Author Organization [facility], [facility] Address [address] [place], [place] [address] Care Team Providers Care Rounding And Backing Machine Operator Name Role Phone MAE MADISON Primary Care Provider Susan Frank Unavailable [phone] ANGELLA COHEN Unavailable [phone] ALLERGIES Allergen (clinical drug ingredient) Drug/Non Drug Allergy documented on EMR Reaction Allergy Type Onset Date Status sumatriptan SUMAtriptan Throat closure Drug Allergy Active REASON FOR REFERRAL Reason please order pelvic and transvag ultrasound for dx right pelvic pain at [facility] Diagnosis 1 Pelvic pain (R10.2) Referral Organization [facility] Referring Provider First Name MAE Referring Provider Last Name CROTON Referring Provider Speciality Nurse Rory umaña Referred Organization [facility] Referred Address [address] [place], [place], Referred Provider Specialty Diagnostic R adiology General Notes ALINA HENRANDEZ 0 02/27/2024 09:50:45 AM >order for, demographics, insurance info and order faxed to [facility] [phone] Referral Priority Urgent Reason please order diagnos tic mammo bilateral and left breast ultrasound limited at [facility] specifics in order per provider- due to approx. pea-size mass on left breast located 10:00 to nipple Diagnosis 1 Mass of upper inner quadrant of left breast (N63.22) Referral Organization [facility] Referring Provider First Name ANGELLA Referring Provider Last Name NOEL Referring Provider Speciality Preventive Medicine Referred Organization [facility] Referred Address [address] [place], [place] Referred Provider Specialty Diagnostic X -Ray General Notes BRIDGET NEFF 08/05 11:34:02 AM > Radiology Form, Referral, OV Note and demographics faxed to [facility] [phone]., ALINA HERNANDEZ 08/31/2024 02:23:31 PM >Received correspondance via fax requesting corrected orders per scheduling and insurance guidelines. Corrected DI orders and referral have been faxed to [facility] Diagnostic Scheduling [phone] Referral Priority Routine MEDICATIONS Medication SIG (Take, [...] HCl 10 MG 1 tablet at be dtiok as needed Oral Once a day for [...] about q uitting Section Notes: Lives in [place], [place] with fiance & son [place] with fiance & son [place]iance [place] son [place] son [place] fiance & son PROBLEMS Problem Type ICD Code Onset Dates Problem Status W/U Status Risk SNOMED Code Notes Problem Polycystic ovarian syndrome (E28.2) Active confirmed Polycystic ovar y syndrome (disorder) (502285603) Problem Sleep disorder, unspecified (G47.9) Active confirmed Sleep disorder (00221586) Problem Essential (primary) hypertension (I10) Active confirmed Essential hypertension (34385913) Problem Calculus of kidney (N20.0) Active confirmed Calculus of kidney (91985175) Problem Panic disorder [episodic paroxysmal anxiety] (F41.0) Active confirmed Panic disor yudy (050480963) Problem Obesity (BMI 30-39.9) (E66.9) Active confirmed Obesity (486591861) VITAL SIGNS Heart Rate 89 /min 08/19/2024 Height-cm 160.02 cm 08/19/2024 Oximetry 98 % 08/19/2024 Blood pressure diastolic 82 mm Hg 08/19/2024 Weight-kg 67.77 kg 08/19/2024 Height 63 in 08/19/2024 Blood pressure systolic 128 mm Hg 08/19/2024 Weight 149.4 lbs 08/19/2024 BMI 26.46 kg/m2 08/19/2024 Encounters Encounter Location Date Provider Diagnosis [address] [id number] 01/28/2024 MAE MADISON Generalized abdomina l pain R10.84 ; Epigastric pain R10.13 ; Rash R21 ; Panic disorder [episodic paroxysmal anxiety] F41.0 and Sleep disorder, unspecified G47.[address] [id number] 02/20/2024 MAE MADISON Generalized abdomina l pain R10.84 and Tendonitis M77.[address] [id number] 03/05/2024 MAE MADISON Panic disorder [episodic paroxysmal anxiety] F41.[address] [id number] 04/13/2024 MAE MADISON Essential (primary) hypertension I10 [address] [id number] 08/31/2024 MAE MADISON [address] [place] [id number] 12/02/2023 MAE MADISON Polyp of colon K63.5 ; Epigastric pain R10.13 and Rash R21 [address] [id number] 12/11/2023 MAE LEONIE Rash R21 and Polyp o f colon, unspecified part of colon, unspecified type K63.[address] [id number] 12/24/2023 MAE MADISON Generalized abdomina l pain R10.84 ; Polyp of colon K63.5 and Epigastric pain R10.[address] [id number] 12/31/2023 MAE MADISON Rash and nonspecific skin eruption R21 and Generalized abdominal pain R10.[address] [id number] 02/26/2024 ANGELLA COHEN Flank pain R10.9 and Calculus of kidney N20.[address] [id number] 03/17/2024 Susan Frank Tendonitis M77.[address] [id number] 04/10/2024 ANGELLA COHEN Essential (primary) hypertension I10 and Jaw pain R68.[address] [id number] 04/22/2024 MAE MADISON Calculus of kidney N20.0 ; Generalized abdominal pain R10.84 ; Generalized abdominal tenderness R10.817 ; Acute bilateral thoracic back pain M54.6 ; Epigastric pain R10.13 ; Essential (primary) hypertension I10 ; PCOS (polycystic ovarian syndrome) E28.2 and Food allergy Z91.[address] [id number] 05/18/2024 MAE MADISON Obesity (BMI 30-39.9 ) E66.9 ; Encounter for contraceptive management, unspecified Z30.9 and Essential (primary) hypertension I10 [address] [id number] 08/19/2024 ANGELLA COHEN Mass of upper inner quadrant of left breast N63.22 [facility], [facility] [address] [facility] [id number] 11/21/2023 ANGELLA GAURAVSTUART [facility], [facility] [address] [facility] [id number] 11/22/2023 [facility] [address] [facility] [id number] 11/26/2023 [facility] [address] [facility] [id number] 11/28/2023 [facility] [address] [facility], [place] [id number] 12/09/2023 [facility] Polyp of colon K63.5 [facility], [facility] [address] [facility] [id number] 12/16/2023 [facility] Polyp of colon K63.5 [facility], [facility] [address] [facility] [id number] 12/27/2023 [facility] [address] [facility] [id number] 01/06/2024 [facility] Generalized abdomina l pain R10.84 [facility] [address] [facility] [id number] 01/06/2024 [facility], [facility] [address] [facility] [place] [id number] 01/10/2024 [facility] [address] [facility] [place] [id number] 01/13/2024 [facility] [address] [facility] [place] [id number] 01/17/2024 [facility] [address] [facility] [id number] 01/28/2024 [facility] [address] [facility] [place] [id number] 02/11/2024 [facility] [address] [facility] [id number] 02/12/2024 [facility] [address] [facility] [id number] 02/27/2024 [facility] Pelvic pain R10.2 [facility] [address] [facility] [id number] 02/27/2024 [facility] [address] [facility] [id number] 02/28/2024 [facility] [address] [facility] [id number] 03/05/2024 [facility] [address] [facility] [id number] 03/13/2024 [facility] [address] [facility] [id number] 04/16/2024 [facility] [address] [facility] [id number] 04/22/2024 [facility] [address] [facility] [id number] 04/27/2024 [facility] [address] [facility] [id number] 05/11/2024 [facility] Panic disorder [episodic paroxysmal anxiety] F41.0 [facility] [address] [facility], [place] [id number] 06/08/2024 [facility] Obesity (BMI 30-39.9 ) E66.9 [facility] [address] [facility], [place] [id number] 06/11/2024 [facility] [address] [facility] [id number] 07/06/2024 [facility] Obesity (BMI 30-39.9 ) E66.9 [facility] [address] [facility] [id number] 07/09/2024 [facility] [address] [facility] [id number] 07/20/2024 [facility] [address] [facility], [place] [id number] 07/27/2024 [facility] Obesity (BMI 30-39.9 ) E66.9 [facility] [address] [facility], [place] [id number] 08/06/2024 [facility] [address] [facility], [place] [id number] 08/17/2024 [facility] [address] [facility], [place] [id number] 08/26/2024 MAE MADISON [facility] [address] [place], [place] [id number] 08/26/2024 MAE MADISON Essential (primary) hypertension I10 ; Encounter for contraceptive management, unspecified Z30.9 and Obesity (BMI 30-39.9) E66.9 [facility] [address] [place], [place] [id number] 09/07/2024 MAE MADISON [address] [id number] 09/16/2024 MAE MADISON ASSESSMENTS Encounter Date Diagnosis [...] Still having severe pain. Placed call to [facility] to retrieve pathology report of removed [...] and coordination of care. Zac Munoz BSN, HVAC COMMERCIAL SALESPERSON student saw the patient and formulated the note under direct supervision of Dr. Mae Madison DNP. 12/31/2023 Rash and nonspecific skin eruption (ICD-10 - R21) 01/06/2024 Generalized abdominal pain (ICD-10 - R10.84) 01/28/2024 Epigastric pain (ICD-10 - R10.13) see above 01/28/2024 Generalized abdominal pain (ICD-10 - R10.84) We spent a great deal of time discussing trauma and its effect on the PLASTIC PARTS FABRICATOR, sympathetic vs parasympathetic, activating vagus nerve to [...] is interested in GI mapping Ordered through [facility] and also gave her the name so [...] hypertension (ICD-10 - I10) Pt instructed to olive picker losartan Rx To take BP at [...] time discussing her most resent experience at [facility]-she states it was a terrible experience and [...] Medicare eligibility criteria for contraceptive use: http://www.who.int/re [facility]/pub lications/mec/index.h tm [employer] [employer] (ACOG) Level [...] spent with patient 30 minutes which includes [id number]-[id number] encounter and coordination of care. 04/22/2024 PCOS [...] order labs today. Will consider referral to client service administrator but these appointments take more than a [...] 12/24/2023 Other This visit was performed by RETAIL SUPPORT MANAGER student Katie Ramachandran, PAT under the supervision of Mae Madison, DNP, MANAGER EMERGENCY DEPARTMENT, RETAIL SUPPORT MANAGER-C, VWCN. 02/26/2024 Other Pt also followi ng [...] REFLEXES (9168 2) 04/22/2024 COMPREHENSIVE METABOLIC PANEL (85172) CBC (INCLUDES DIFF/PLT) (6399) DHEA SULFATE (402) 04/22/2024 LH (615) 04/22/2024 PROLACTIN (746) 04/22/2024 ANDROSTENEDIONE (22566) 04/22/2024 Insurance Providers Payer Name Payer Address Payer Phone Subscriber Number Group Number Insured Name Patient Relationship to Insured Coverage Start Date Coverage End Date [address] [place] [address] [place] [phone] [id number] SUSAN RM Self - patient is the [...]
[2024-11-16 11:41] LABS: Potassium 3.8 mmol/L (3.3-5.1)
[2024-11-16 11:46] LABS: Appearance Urine Clear; Color Urine Yellow; Glucose Urine UA Negative (Negative); Leukocyte Esterase Urine Moderate (2+) (Negative); Nitrite Urine Negative (Negative); PH 7.5 (5.0-9.0); Specific Gravity - Urine <= 1.005 (1.005-1.025); UMIC TRIGGER UA YES; Urine Blood Negative (Negative); Urine Ketones Negative (Negative); Urine Protein Negative (Neg-Trace)
[2024-11-16 12:02] LABS: Bacteria Urine None Seen (None Seen); Hyaline Casts Urine 0-2 /LPF (0-2); RBC Urine 0-2 /HPF (0-2); Squamous Epithelial Cell Urine 0-2 /HPF (0-2); WBC Urine 0-5 /HPF (0-5)
== END 2024-11-16 08:29 | disposition home or self-care (01) ==
LOC: HO.WFDLDS 08:28
PROVIDERS: Visit Provider Physician Assistant Medical
DX: R39.9 Unspecified symptoms and signs involving the genitourinary system (principal); R10.9 Unspecified abdominal pain; E87.6 Hypokalemia
CPT/HCPCS: 36415; 81001; 84132; 87086

== ENCOUNTER 2024-11-30 12:47 | Outpatient (REF) | payer OTHER, SELFPAY ==
--- NOTE | ~2024-11-30 | CT_ITS ---
EXAMINATION: CT ABDOMEN AND PELVIS WITHOUT CONTRAST CLINICAL INFORMATION: Right flank pain. COMPARISON: None available. TECHNIQUE: Multidetector volumetric imaging was performed from the superior aspect of the liver through the pubic symphysis. Sagittal and coronal reformatted images were obtained on the technologist's workstation. This CT examination was performed using dose optimization techniques as appropriate, variously including the following: *Automated exposure control *Adjustment of mA and/or kV according to patient size (this includes techniques or standardized protocols for targeted exams where dose is matched to indication/reason for exam; i.e. extremities or head) *Use of iterative reconstruction technique FINDINGS: LUNG BASES: The visualized lung bases are unremarkable. LIVER, GALLBLADDER, AND BILIARY TREE: The unenhanced liver is normal in size, shape, and attenuation. Ila's lobe. No focal hepatic lesion or biliary ductal dilatation is present. The gallbladder is unremarkable with no evidence of radiopaque gallstones, gallbladder wall thickening, or obvious pericholecystic inflammatory changes. PANCREAS: Unremarkable. SPLEEN: Unremarkable. ADRENAL GLANDS: Unremarkable. KIDNEYS AND URETERS: The kidneys are normal in size, shape, and attenuation. No hydronephrosis or hydroureter. No perinephric stranding. There are bilateral tiny nonobstructing calculi, measuring up to 3 mm in the left kidney upper pole, and 2 mm in the right kidney midpole. BLADDER: Decompressed but otherwise normal. Distal ureters are normal. GASTROINTESTINAL TRACT: The small and large bowel are unremarkable. The appendix is unremarkable. ABDOMINAL WALL: No significant hernia is appreciated. LYMPH NODES: Normal. VASCULAR: Unremarkable. PELVIC VISCERA: The uterus and adnexa are unremarkable. OSSEOUS STRUCTURES: No suspicious lytic or blastic bone lesion. No acute findings. Disc degeneration focally at L5-S1. Bone island in L3. CT/CT abdomen pelvis wo IV con IMPRESSION: 1. Bilateral tiny nonobstructing renal calculi measuring up to 3 mm. No obstructing calculi identified. No hydronephrosis or hydroureter. 2. Remainder of the examination is normal. Electronically signed by: Mahin Gonzalez MD 11/30/2024 01:31 PM EDT
--- OUTSIDE RECORDS SUMMARY | 2024-11-30 15:07 | XMS_ITS ---
Author Organization [facility], [facility] Address [address] [place] [id number] Care Team Providers Care Truss Designer Name Role Phone BRI HADLEY Primary Care Provider REASON FOR VISIT PA Request MEDICATIONS Medication SIG (Take, Route, Fr equency, Duration) Notes Start Date End Date Status ALPRAZolam 0.5 MG 1 tablet Oral Twice a day for 30 days 09/16/2024 Active Encounters Encounter Location Date Provider Diagnosis [address] [id number] 09/07/2024 BRI HADLEY PLAN OF TREATMENT Medication Medication Name Sig Start Date Stop Date Notes ALPRAZolam 0.5 MG 1 tablet Oral Twice a day for 30 days Progress Notes * SUSAN PAYNEDOB:[birth year] (33 yo F)Acc No.[id number]:09/07/2024 Patient:??ELMER HARRIETT ARANA :1990?Age:33 Y?Sex:Fe male Phone: Address: [place] [address] * Refills?? Refill ALPRAZolam Tablet, 0.5 MG, Oral, 60, 1 tablet, Twice a day, 30 days, Refills=1 * true * Date:??
--- OUTSIDE RECORDS SUMMARY | 2024-11-30 15:07 | XMS_ITS | Encounter Summary ---
Author Organization [employer] Address [address] [facility] 7t [place] [address] Care Team Providers Care Mobile Architect Name Role Phone FabriceRiri Primary Care Provider [phone] Encounter Details Date Type Department Care Team (Late st Contact Info) Description 08/14/2024 Orders Only [facility] MED[facility] [address] [place] [address] Provider, Mannie, Social History Tobacco Use Types [...] on filedocumented in this encounter Care Teams Mobile Architect Relationship Specialty Start Date End Date Riri Avina DO [address] [place] [address] PCP - General Family Medicine 05/05/24 documented as of this encounter
--- OUTSIDE RECORDS SUMMARY | 2024-11-30 15:07 | XMS_ITS ---
Author Organization [facility], [facility] Address [address] [place], [place] [id number] Care Team Providers Care Roads And Parking Lots Sweeper Operator Name Role Phone BRI HADLEY Primary Care Provider REASON FOR VISIT CPE Encounters Encounter Location Date Provider Diagnosis [address] [id number] 08/31/2024 BRI HADLEY PLAN OF TREATMENT No Information Progress Notes * SUSAN PAYNEDOB:[birth year] (34 yo F)Acc No.[id number]:08/31/2024 Progress Note Patient:??HARRIETT PAYNE LE Provider:??Bri Hadley DNP :1990?Age:33 Y?Sex:Fe male Date:08/31/2024 Phone: Address:[address] [place], [place] [address] Subjective: * Chief Complaints: * ?1. CPE. * Medical History:?? Objective: Assessment: Plan: * Treatment: Care Plan: * Problems:?? * Billing Information: * Visit Code:?? * Procedure Codes:?? * Sign off status: Pending * Provider:??Bri Hadley DNP Date:??0 08/31/2024
--- OUTSIDE RECORDS SUMMARY | 2024-11-30 15:07 | XMS_ITS ---
Author Organization [facility] Address [address] [place], [place] [address] Care Team Providers Care Director Of Extension Work Name Role Phone BRI HADLEY Primary Care Provider [phone] REASON FOR VISIT Referral for Breast biopsy Encounters Encounter Location Date Provider Diagnosis [address] [id number] 09/16/2024 BRI HADLEY PLAN OF TREATMENT No Information Progress Notes * SUSAN PAYNEDOB:[birth year] (33 yo F)Acc No.[id number]:09/16/2024 Patient:??HARRIETT PAYNE LE :1990?Age:33 Y?Sex:Fe male Phone: Address:[address] [place] [address] * true * Date:??
--- OUTSIDE RECORDS SUMMARY | 2024-11-30 15:07 | XMS_ITS | Patient Health Record ---
Author Organization [facility], [facility] Address [address] [place], [place] [id number] Care Team Providers Care Ob Tech Name Role Phone MAE MADISON Primary Care Provider Susan Frank Unavailable [phone] ANGELLA COHEN Unavailable [phone] ALLERGIES Allergen (clinical drug ingredient) Drug/Non Drug Allergy documented on EMR Reaction Allergy Type Onset Date Status sumatriptan SUMAtriptan Throat closure Drug Allergy Active REASON FOR REFERRAL Reason please order pelvic and transvag ultrasound for dx right pelvic pain at [facility] Diagnosis 1 Pelvic pain (R10.2) Referral Organization [facility] Referring Provider First Name MAE Referring Provider Last Name [place] Referring Provider Speciality Nurse Rory umaña Referred Organization [facility] Referred Address [address] [place], [id number], Referred Provider Specialty Diagnostic R adiology General Notes ALINA HERNANDEZ 0 02/27/2024 09:50:45 AM >order for, demographics, insurance info and order faxed to [facility] [phone] Referral Priority Urgent Reason please order diagnos tic mammo bilateral and left breast ultrasound limited at [facility] specifics in order per provider- due to approx. pea-size mass on left breast located 10:00 to nipple Diagnosis 1 Mass of upper inner quadrant of left breast (N63.22) Referral Organization [facility] Referring Provider First Name ANGELLA Referring Provider Last Name NOEL Referring Provider Speciality Preventive Medicine Referred Organization [facility] Referred Address [address] [place], [place],[id number] Referred Provider Specialty Diagnostic X -Ray General Notes BRIDGET NEFF 08/05 11:34:02 AM > Radiology Form, Referral, OV Note and demographics faxed to [facility] [phone]., ALINA HERNANDEZ 08/31/2024 02:23:31 PM >Received correspondance via fax requesting corrected orders per scheduling and insurance guidelines. Corrected DI orders and referral have been faxed to [facility] Diagnostic Scheduling [phone] Referral Priority Routine MEDICATIONS Medication SIG (Take, [...] hydrOXYzine Pamoate 25 MG 1 capsule at b edtime as needed Orally Once a day for 30 days 01/28/2024 Not-Taking Ibuprofen 800 MG 1 tablet with food o r milk as needed Orally every 8 hrs [...] Claritin-D 12 Hour 5-120 MG 1 tablet Orally every 12 hrs Active Omeprazole 20 MG 1 capsule 30 minutes before morning meal Orally Once a day for 30 days 02/12/2024 Not-Taking ALPRAZolam 0.5 MG 1 tablet Orally once a day for 30 days PRN 05/11/2024 Not-Taking Ibuprofen 600 MG 1 tablet with food o r milk as needed Orally Three times a day Not-Taking Antihistamine Decongestant Not-Taking ALPRAZolam 0.5 MG 1 tablet Oral Twice a day for 30 days 09/16/2024 Active Triamcinolone Acetonide 0.025 % APPLY 1 APPLICATION EXTERNALLY EVERY DAY FOR 7 DAYS for 30 Active Losartan Potassium 50 MG 1 tablet Orally Once a day for 30 days 04/13/2024 Not-Taking Cyclobenzaprine HCl 10 MG 1 tablet at be dtime as needed Oral Once a day for [...] about q uitting Section Notes: [place] f[place] [facility] [place] [facility] [place] [facility] [place] PROBLEMS Problem Type ICD Code Onset Dates Problem Status W/U Status Risk SNOMED Code Notes Problem Polycystic ovarian syndrome (E28.2) Active confirmed Polycystic ovar y syndrome (disorder) (079573552) Problem Sleep disorder, unspecified (G47.9) Active confirmed Sleep disorder (95052145) Problem Essential (primary) hypertension (I10) Active confirmed Essential hypertension (04278276) Problem Calculus of kidney (N20.0) Active confirmed Calculus of kidney (46096957) Problem Panic disorder [episodic paroxysmal anxiety] (F41.0) Active confirmed Panic disor yudy (727054358) Problem Obesity (BMI 30-39.9) (E66.9) Active confirmed Obesity (064126564) VITAL SIGNS Heart Rate 89 /min 08/19/2024 Height-cm 160.02 cm 08/19/2024 Oximetry 98 % 08/19/2024 Blood pressure diastolic 82 mm Hg 08/19/2024 Weight-kg 67.77 kg 08/19/2024 Height 63 in 08/19/2024 Blood pressure systolic 128 mm Hg 08/19/2024 Weight 149.4 lbs 08/19/2024 BMI 26.46 kg/m2 08/19/2024 Encounters Encounter Location Date Provider Diagnosis [address] [id number] 01/28/2024 MAE MADISON Generalized abdomina l pain R10.84 ; Epigastric pain R10.13 ; Rash R21 ; Panic disorder [episodic paroxysmal anxiety] F41.0 and Sleep disorder, unspecified G47.[address] [id number] 02/20/2024 MAE MADISON Generalized abdomina l pain R10.84 and Tendonitis M77.[address] [id number] 03/05/2024 MAE MADISON Panic disorder [episodic paroxysmal anxiety] F41.[address] [id number] 04/13/2024 MAE MDAISON Essential (primary) hypertension I10 [address] [id number] 08/31/2024 MAE MADISON [address] [id number] 12/02/2023 MAE MADISON Polyp of colon K63.5 ; Epigastric pain R10.13 and Rash R21 [address] [id number] 12/11/2023 MAE LEONIE Rash R21 and Polyp o f colon, unspecified part of colon, unspecified type K63.[address] [id number] 12/24/2023 MAE LEONIE Generalized abdomina l pain R10.84 ; Polyp of colon K63.5 and Epigastric pain R10.[address] [id number] 12/31/2023 MAE MADISON Rash and nonspecific skin eruption R21 and Generalized abdominal pain R10.[address] [id number] 02/26/2024 ANGELLA COHEN Flank pain R10.9 and Calculus of kidney N20.[address] [id number] 03/17/2024 Susan Frank Tendonitis M77.[address] [id number] 04/10/2024 ANGELLA COHEN Essential (primary) hypertension I10 and Jaw pain R68.[address] [id number] 04/22/2024 MAE MADISON Calculus of kidney N20.0 ; Generalized abdominal pain R10.84 ; Generalized abdominal tenderness R10.817 ; Acute bilateral thoracic back pain M54.6 ; Epigastric pain R10.13 ; Essential (primary) hypertension I10 ; PCOS (polycystic ovarian syndrome) E28.2 and Food allergy Z91.[address] [id number] 05/18/2024 MAE MADISON Obesity (BMI 30-39.9 ) E66.9 ; Encounter for contraceptive management, unspecified Z30.9 and Essential (primary) hypertension I10 [address] [id number] 08/19/2024 ANGELLA COHEN Mass of upper inner quadrant of left breast N63.[address] [id number] 12/09/2023 MAE MADISON Polyp of colon K63.5 [facility] [address] [facility], [place] [id number] 12/16/2023 [facility] Polyp of colon K63.5 [facility] [address] [facility], [place] [id number] 12/27/2023 [facility], [facility] [address] [facility], [place] [id number] 01/06/2024 [facility] Generalized abdomina l pain R10.84 [facility] [address] [facility], [place] [id number] 01/06/2024 [facility] [address] [facility], [place] [id number] 01/10/2024 [facility] [address] [facility], [place] [id number] 01/13/2024 [facility] [address] [facility], [place] [id number] 01/17/2024 [facility] [address] [facility], [place] [id number] 01/28/2024 [facility] [address] [facility] [id number] 02/11/2024 [facility] [address] [facility] [id number] 02/12/2024 [facility] [address] [facility] [id number] 02/27/2024 [facility] Pelvic pain R10.2 [facility] [address] [facility] [place] [id number] 02/27/2024 [facility] [address] [facility] [id number] 02/28/2024 [facility] [address] [facility] [id number] 03/05/2024 [facility] [address] [facility], [place] [id number] 03/13/2024 [facility] [address] [facility], [place] [id number] 04/16/2024 [facility] [address] [facility] [id number] 04/22/2024 [facility] [address] [place], [place] [id number] 04/27/2024 [facility] [address] [place], [place] [id number] 05/11/2024 MAE LEONIE Panic disorder [episodic paroxysmal anxiety] F41.0 [facility] [address] [place], [place] [id number] 06/08/2024 MAE [place]REEK Obesity (BMI 30-39.9 ) E66.9 [facility] [address] [place], [place] [id number] 06/11/2024 [facility] [address] [place], [place] [id number] 07/06/2024 MAE [place] Obesity (BMI 30-39.9 ) E66.9 [facility] [address] [place], [place] [id number] 07/09/2024 [facility] [address] [place], [place] [id number] 07/20/2024 [facility] [address] [place], [place] [id number] 07/27/2024 MAE LEONIE Obesity (BMI 30-39.9 ) E66.9 [facility] [address] [place], [place] [id number] 08/06/[address] [id number] 08/17/2024 [facility] [address] [place], [place] [id number] 08/26/[address] [id number] 08/26/2024 MAE LEONIE Essential (primary) hypertension I10 ; Encounter for contraceptive management, unspecified Z30.9 and Obesity (BMI 30-39.9) E66.9 [facility] [address] [place], [place] [id number] 09/07/2024 [facility] [address] [place], [place] [id number] 09/16/2024 MAE LEONIE ASSESSMENTS Encounter Date Diagnosis Assessment Notes Treatment [...] Still having severe pain. Placed call to [facility]ology to retrieve pathology report of [...] and coordination of care. Zac Munoz BSN, WARPER TENDER student saw the patient and formulated the note under direct supervision of Dr. Mae Madison, JOSE LUIS. 12/31/2023 Rash and nonspecific skin eruption (ICD-10 - R21) 01/06/2024 Generalized abdominal pain (ICD-10 - R10.84) 01/28/2024 Epigastric pain (ICD-10 - R10.13) see above 01/28/2024 Generalized abdominal pain (ICD-10 - R10.84) We spent a great deal of time discussing trauma and its effect on the ALARM SERVICE TECHNICIAN, sympathetic vs parasympathetic, activating vagus nerve to [...] is interested in GI mapping Ordered through [facility] and also gave her the name so she can research online as well 02/27/2024 Pelvic pain (ICD-10 - R10.2) 03/05/2024 Panic disorder [episodic paroxysmal anxiety] (ICD-10 - F41.0) 03/17/2024 Tendonitis (ICD-10 - M77.9) Trigger point injection done with 2.5 cc of lidocaine, marcain, triamcinolone 1//0.[address] Mae Madison into bilateral wrist joints. Bilateral wrist injections just ulnar to the palmaris longus tendon and at the proximal wrist crease. With immediate relief- able to have increased ROM in fingers Encouraged to wear brace at night if needed Verbalized understanding 04/10/2024 Essential (primary) hypertension (ICD-10 - I10) Pt instructed to meat pickler losartan Rx To take BP at home [...] time discussing her most resent experience at [facility]-she states it was a terrible experience and [...] for contraceptive use: http://www.who.int/re productive-health/pub lications/mec/index.h tm [employer] [employer]nec[employer] (ACOG) Level [...] women does not appear to result in development problems; therefore, their use can be [...] spent with patient 30 minutes which includes [id number] encounter and coordination of care. 04/22/2024 PCOS [...] order labs today. Will consider referral to rn otolaryngology but these appointments take more than a [...] 12/24/2023 Other This visit was performed by KEYBOARDING CLERK student Katie Ramachandran RN under the supervision of Mae Madison, DNP, RN PLASTIC SURGERY, KEYBOARDING CLERK-C, VWCN. 02/26/2024 Other Pt also followi ng [...] REFLEXES (9168 2) 04/22/2024 COMPREHENSIVE METABOLIC PANEL (77522) CBC (INCLUDES DIFF/PLT) (6399) DHEA SULFATE (402) 04/22/2024 LH (615) 04/22/2024 PROLACTIN (746) 04/22/2024 ANDROSTENEDIONE (65680) 04/22/2024 Insurance Providers Payer Name Payer Address Payer Phone Subscriber Number Group Number Insured Name Patient Relationship to Insured Coverage Start Date Coverage End Date [address] [place] [address] [place] [phone] [id number] SUSAN RM Self - patient is the [...]
--- OUTSIDE RECORDS SUMMARY | 2024-11-30 15:07 | XMS_ITS | Encounter Summary ---
Author Organization [employer] Address [address] [facility] 7t [place] [address] Care Team Providers Care Learning Disabilities Teacher Name Role Phone Riri Avina DO Primary Care Provider [phone] Encounter Details Date Type Department Care Team (Late st Contact Info) Description 03/27/2023 Telephone [facility] ADULT D[facility]AL [address] [place] [address] Tali Elliott DMD Social History Tobacco Use [...] on filedocumented in this encounter Care Teams Learning Disabilities Teacher Relationship Specialty Start Date End Date Riri Avina DO [address] [place] [address] PCP - General Family Medicine 05/05/24 documented as of this encounter
--- OUTSIDE RECORDS SUMMARY | 2024-11-30 15:07 | XMS_ITS | Encounter Summary ---
Author Organization [employer] Address [address] [place] [address] 7t [place] [address] Care Team Providers Care Engineering Production Worker Name Role Phone Riri Avina DO Primary Care Provider [phone] Reason for Visit * Reason Onset Date Comments Appointment 10/29/2022 Encounter Details Date Type Department Care Team ([facility] st Contact Info) Description 10/29/2022 Telephone [facility] ADULT D[facility]AL [address] [place], [place] [phone] Connor High DDS [address] [place] [address] Appointment Social History Tobacco Use Types Packs/Day [...] on filedocumented in this encounter Care Teams Engineering Production Worker Relationship Specialty Start Date End Date Riri Avina DO [address] [place] [address] PCP - General Family Medicine 05/05/24 documented as of this encounter
--- OUTSIDE RECORDS SUMMARY | 2024-11-30 15:07 | XMS_ITS | Clinical Summary ---
Author Organization [employer] Address [address] [place] [address] 7t [place] [address] Care Team Providers Care Geographic Information System Surveyor Name Role Phone Riri Avina DO Primary Care Provider [phone] Allergies Active Allergy Reactions Criticality Noted Date [...] MD LAB CYTOLOGY ORDERABLES F inal Result [facility] [address] [place] [address] from Last 3 Months or Most Recently Relevant to Health Maintenance Insurance [facility] [address] [place] [address] [facility] Care Teams Geographic Information System Surveyor Relationship Specialty Start Date End Date Riri Avina DO [address] [place] [address] PCP - General Family Medicine 05/05/24
== END 2024-11-30 12:48 | disposition home or self-care (01) ==
LOC: HO.CT 12:47
PROVIDERS: PCP Physician Assistant Medical; Visit Provider Physician Assistant Medical
DX: R10.9 Unspecified abdominal pain (principal); N20.0 Calculus of kidney
CPT/HCPCS: 74176

== ENCOUNTER → 2024-11-30 12:48 | Outpatient (BNV) | payer OTHER, SELFPAY | PROVIDERS: PCP Physician Assistant Medical; Visit Provider Radiology Diagnostic Radiology | DX: R10.9 Unspecified abdominal pain (principal) | CPT/HCPCS: 74176 ==

== ENCOUNTER 2024-12-24 15:02 | Outpatient (REF) | payer OTHER, SELFPAY ==
--- OUTSIDE RECORDS SUMMARY | 2024-12-24 15:06 | XMS_ITS | Encounter Summary ---
Author Organization [employer] Address [address] [facility] 7t [place] [address] Care Team Providers Care Soaker Helper Name Role Phone Riri Avnia DO Primary Care Provider [phone] Encounter Details Date Type Department Care Team (Late st Contact Info) Description 03/27/2023 Telephone [facility] ADULT D[facility]AL [address] [place] [address] Tali Elliott DMD Social History Tobacco Use [...] on filedocumented in this encounter Care Teams Soaker Helper Relationship Specialty Start Date End Date Riri Avina DO [address] [place] [address] PCP - General Family Medicine 05/05/24 documented as of this encounter
[2024-12-24 17:58] LABS: Appearance Urine Clear; Color Urine Yellow; Glucose Urine UA Negative (Negative); Leukocyte Esterase Urine Moderate (2+) (Negative); Nitrite Urine Negative (Negative); Specific Gravity - Urine 1.025 (1.005-1.025); UMIC TRIGGER UA YES; Urine Blood Moderate (2+) (Negative); Urine Ketones 40 mg/dL (Negative); Urine Protein Trace mg/dL (Neg-Trace)
[2024-12-24 18:16] LABS: Anion Gap 14 (12-20); Blood Urea Nitrogen 14 mg/dL (9-16); Calcium 9.2 mg/dL (8.4-10.2); Carbon Dioxide 22 mmol/L (22-29); Chloride 106 mmol/L (96-108); Estimated Glomerular Filt Rate > 60; Glucose Random 117 mg/dL (60-115); Potassium 3.3 mmol/L (3.3-5.1); Sodium 139 mmol/L (135-145)
[2024-12-24 18:28] LABS: TSH reflex Free T4 3.26 uIU/mL (0.32-4.0)
[2024-12-24 19:35] LABS: Bacteria Urine Trace (None Seen); Hyaline Casts Urine 0-2 /LPF (0-2); Squamous Epithelial Cell Urine 0-2 /HPF (0-2); WBC Urine 0-5 /HPF (0-5)
[2024-12-28 15:43] LABS: VITAMIN D (1,25 OH) D3 77 pg/mL; Vit D (1,25-Dihydroxy) Total 77 pg/mL (18-72); Vitamin D (1,25 OH) D2 <8 pg/mL
== END 2024-12-24 15:03 | disposition home or self-care (01) ==
LOC: HO.WFDLDS 15:02
PROVIDERS: Visit Provider Physician Assistant Medical
DX: E87.6 Hypokalemia (principal); R79.89 Other specified abnormal findings of blood chemistry; R39.9 Unspecified symptoms and signs involving the genitourinary system; R82.90 Unspecified abnormal findings in urine; E11.9 Type 2 diabetes mellitus without complications
CPT/HCPCS: 36415; 80048; 81001; 82652; 84443; 87086

== ENCOUNTER 2024-12-31 09:35 | Outpatient (REF) | payer OTHER, SELFPAY ==
--- NOTE | ~2024-12-31 | XR_ITS ---
EXAMINATION: XR THORACIC SPINE CLINICAL INFORMATION: M54.6 - Pain in thoracic spine COMPARISON: None available. TECHNIQUE: 3 views of the thoracic spine were obtained. FINDINGS: Mild S-shaped curvature of the thoracic spine. Small marginal osteophyte formation and endplate sclerosis at multiple levels with decreased intervertebral disc height in the upper mid segment. No acute cortical disruption. No gross malalignment. No lytic or blastic lesions. XR/XR thoracic spine 2V IMPRESSION: Mild multilevel spondylosis. Electronically signed by: Pete Jones MD 12/31/2024 02:13 PM EDT
== END 2024-12-31 09:36 | disposition home or self-care (01) ==
LOC: HO.XRAY 09:35
PROVIDERS: PCP Family Medicine; Visit Provider Physician Assistant Medical
DX: K63.5 Polyp of colon (principal); G89.29 Other chronic pain; I10 Essential (primary) hypertension; F41.9 Anxiety disorder, unspecified; R76.8 Other specified abnormal immunological findings in serum; E03.9 Hypothyroidism, unspecified; M54.6 Pain in thoracic spine; J31.0 Chronic rhinitis; Z80.0 Family history of malignant neoplasm of digestive organs; Z80.3 Family history of malignant neoplasm of breast
CPT/HCPCS: 72070; 96127; 99212

== ENCOUNTER 2024-12-31 09:35 | Outpatient (AMB) | payer OTHER, SELFPAY ==
--- OUTSIDE RECORDS SUMMARY | 2024-12-31 09:54 | XMS_ITS | Encounter Summary ---
Author Organization [email or web address] Address [address] [facility] 7t [place] [address] Care Team Providers Care Ride Assembly Supervisor Name Role Phone Riri Avina DO Primary Care Provider [phone] Encounter Details Date Type Department Care Team (Late st Contact Info) Description 03/27/2023 Telephone [facility] ADULT DENTAL [address] [place] [address] Tali Elliott DMD Social History Tobacco Use [...] on filedocumented in this encounter Care Teams Ride Assembly Supervisor Relationship Specialty Start Date End Date Riri Avina DO [address] [place] [address] PCP - General Family Medicine 05/05/24 documented as of this encounter
--- NOTE | 2024-12-31 10:14 | A.OFFPC_ITS ---
Vital Signs 12/31/24 10:19 Height 5 ft 3 in Weight 149 lb 2 oz BMI 26.4 BP 122/80 Blood Pressure Location Rt brachial Position Sitting Pulse 95 Pulse Source Pulse Oximeter Temp 97.9 F Temp Source Temporal Artery Scan Pulse Oximetry (%) 98 Oxygen Delivery Method Room Air Intake Visit Reasons: recheck thyroid Intake Note: Miracle presents in the office today for a recheck of her thyroid. Allergies sumatriptan [SUMATRIPTAN] Allergy (Severe, Verified 12/31/24 10:15) THROAT SWELLING chlorthalidone Adverse Reaction (Intermediate, Uncoded 12/31/24 10:15) hypokalemia Tobacco use date assessed: 12/31/24 Dental Screening Dental Screen Date: 12/31/24 Did you have a dental visit in the last 12 months?: Yes Did you have a dental problem in the last 6 months where you did not have access to dental care?: No Was dental information given to patient?: Patient has dentist HPI HPI Comments History of Present Illness Details This is a 34-year-old female with a past medical history of recurrent nephrolithiasis, chronic rib pain, colon polyps, hypertension, insomnia, anxiety, prior obesity resolved after GLP 1 therapy, eczema and left breast masses presenting for follow up. Left breast masses-underwent benign breast biopsy and was told she will be contacted to repeat imaging in 6 months. She has the appointment with genetic counseling. Her paternal cousin had breast cancer under the age of 50. Her father also has colon cancer in his 60s, and her paternal grandfather had melanoma. She sees [facility] at [facility]. She was followed by [facility] for recurrent nephrolithiasis, but due to insurance change she was referred to [facility]. She was seen here for what she thought was a kidney stone passing but CT showed bilateral, tiny, nonobstructing stones. Cr, GFR normal. Initial UA negative for blood, +blood on repeat. Culture negative. No menses. She sees urology in January. Last year she had a colonoscopy which demonstrated what she says were several colon polyps and 1 was 7 mm. She was told she has to have colonoscopies annually. She is followed by [facility]. She has a colonoscopy scheduled this Saturday at [facility]. She was diagnosed with hypertension in her early 30s. She has a family history of this. She quit smoking, and she lost weight. Taking Amlodipine 5 mg and Losartan 100 mg. HCTZ discontinued. Chlorthalidone discontinued due to hypokalemia. She she continues to endorse chronic right rib pain, lower back and left shoulder pain since she was a teenager. Today she focuses on mid back pain that radiates around her ribs. States she's had some of this pain 20 years. Patient says she can't have an MRI due to colonic marker. CRP was elevated. TRISH is positive. Rheumatoid factor and Lyme negative/normal. Rheum consult scheduled in April. Patient reports she has gone to the [facility] ED for evaluation of many of the symptoms and had multiple CT scans and x-rays. Chest x-ray 04/09/2024 unremarkable X-ray abdomen 11/16/2022: 4 mm calcification projecting over the right renal shadow, probable small right kidney stone CT abdomen and pelvis without contrast 07/21/2024: Punctuate hyperdense focus in the right upper pole probably nonobstructing calculus. 2 mm nonobstructing calculus in the interpolar region of the right kidney. Two 2 mm calculi in the upper pole and lower pole of the left kidney. CT head venogram 04/09/2024: Normal CT venogram of the head without evidence of dural venous sinus thrombosis CT soft tissue neck with contrast 04/09/2024: Unremarkable CT abdomen pelvis with IV contrast 08/07/2023: Bilateral nonobstructing nephrolithiasis Patient was given short term percocet when I saw her for possible recurrent nephrolithisis, but in light of imaging it was discontinued. Of note, she did request additional refill. On her [facility] prior Rx for Suboxone was also noted. Patient reported last PCP made her take this when discontinuing pain medication. She takes Zofran as needed for nausea related to her anxiety. She takes alprazolam 0.5 mg twice daily as needed. ROS: Constitutional: No unexplained weight loss, fever, chills or night sweats. Respiratory: No shortness of breath, cough or sputum production. Cardiovascular: No chest pain, chest pressure or chest discomfort. No palpitations or pedal edema. Gastrointestinal: No anorexia, nausea, vomiting or diarrhea. No abdominal pain or blood in stool. Genitourinary: No dysuria, hematuria, urinary frequency. Neurologic: No headache, dizziness, syncope Psychiatric:No SI/HI. Physical exam: Constitutional: Alert, in no distress. Eyes: Pupils are equal, round and reactive to light. Extraocular muscles intact. Neck: Supple, Full range of motion. No lymphadenopathy. No palpable thyroid masses. Respiratory: Clear to auscultation. Cardiovascular: S1 S2 regular. No murmurs. Gastrointestinal: Abdomen soft, non-tender, non-distended. Normal bowel sounds. No palpable masses. Neurologic: No focal neurological deficits. SPINE: FROM. No midline tenderness. Skin: No rashes Extremities: Warm and well perfused. No clubbing, cyanosis or edema. 3+ peripheral pulses bilaterally. Psychiatric: Normal mood and affect [facility] Medical History (Updated 12/31/24 @ 21:30 by HAILEY Mendoza) Chronic rhinitis Thoracic back pain Cloudy urine PCOS (polycystic ovarian syndrome) Low vitamin D level Hypothyroid Right flank pain Family history of melanoma Positive TRISH (antinuclear antibody) Elevated TSH Low blood potassium Contraception management Eczema History of gestational diabetes Insomnia Former smoker Chronic pain Colon polyps Family history of cancer Imbalance Memory loss Headache Kidney stones Anxiety HTN (hypertension) Surgical History (Updated 10/01/24 @ 15:53 by Phoebe Millan MA) Hx of tonsillectomy Family History Mother HTN (hypertension) Cardiovascular disease Thyroid disorder Father HTN (hypertension) Cancer Maternal Grandmother HTN (hypertension) High cholesterol Diabetes Cardiovascular disease Cancer Paternal Grandfather HTN (hypertension) High cholesterol Cancer Sister Asthma Social History (Updated 12/31/24 @ 10:16 by Liz Syed MA) Household Members: Significant Other and Children Both parents involved: No Caregiver staying overnight: No Housing: House Are you a primary resident care manager rn to a significant other at home: Yes Do you presently have visiting nurse or other home services: No 75 years or older and lives alone: No Alcohol intake: current Alcohol intake frequency: a few times a month Patient Tobacco Use Status: Former Tobacco user Cigarettes Per Day: 10 Years Smoked: 10 e-Cigarette/Vaping Use: Never Used Second Hand Smoke Exposure: No service: No Current occupational status: unemployed Current occupational exposures/hazards: No Cognitive needs: No Hearing needs: No Vision needs: No Questionnaire PHQ-9 Over the last 2 weeks, how often have you been bothered by any of the following problems? 1. Little interest or pleasure in doing things: not at all 2. Feeling down, depressed, or hopeless: not at all 3. Trouble falling or staying asleep, or sleeping too much: several days 4. Feeling tired or having little energy: several days 5. Poor appetite or overeating: more than half the days 6. Feeling bad about yourself - or that you are a failure or have let yourself or your family down: not at all 7. Trouble concentrating on things, such as reading the newspaper or watching television: not at all 8. Moving or speaking so slowly that other people could have noticed. Or the opposite - being so fidgety or restless that you have been moving around a lot more than usual: not at all 9. Thoughts that you would be better off or of hurting yourself in some way: not at all Total score: 4 Depression Screening Interpretation: Negative Depression Screening Done: Yes 83402 - PHQ-9 Billing: Yes Source: Developed by Drs. Karthik Felton, Kristie Barrientos, Dave Brown and colleagues, with an educational joan from [employer]. Thrive Questionnaire Date Thrive assessed: 12/31/24 I am a: Patient What is your living situation today?: I have a steady place to live Within the past 12 months, did the food you bought not last and you didn't have the money to get more?: Never true Within the past 12 months, did you worry whether your food would run out before you got money to buy more?: Never true Do you have trouble paying for medicines?: No Do you have trouble getting transportation to medical appointments?: No Do you have trouble paying your heating and electricity bill?: No Do you have trouble taking care of your child, family member or friend?: No Do you have trouble with day-to-day activities such as bathing, preparing meals, shopping, managing finances, etc.?: No Are you currently unemployed and looking for a job?: No Are you interested in more education?: No Please select the resources that you would like help with: None Currently or been in a relationship where the following occur: No concerns reported THRIVE Score: 0 AUDIT C Alcohol Use Questionnaire (AUDIT-C) 1. How often do you have a drink containing alcohol?: Never Total Score: 0 THIERNO-7 AMB Questionnaire THIERNO-7 Date THIERNO - 7 assessed: 12/31/24 Feeling nervous, anxious, or on edge: 0 = Not at all Not being able to stop or control worryin = Not at all Worrying too much about different things: 0 = Not at all Trouble relaxin = Several days Being so restless that it is hard to sit still: 0 = Not at all Becoming easily annoyed or irritable: 0 = Not at all Feeling afraid as if something awful might happen: 0 = Not at all Total THIERNO-7 score (0-4 normal; 5-9 mild; 10-14 moderate; 15-21 severe): 1 Source: Developed by Drs. Karthik Felton, Kristie Barrientos, Dave Brown and colleagues, with an educational joan from [employer]. THIERNO-7 Assessment Billing THIERNO-7 Assessment Tool: THIERNO-7 Assessment 49374 Physical exam (Primary Care) Vital Signs: Last Vital Signs Temp 97.9 F 12/31/24 10:19 Pulse 95 12/31/24 10:19 BP 122/80 12/31/24 10:19 Pulse Ox 98 12/31/24 10:19 Oxygen Delivery Method Room Air 12/31/24 10:19 BMI result Body Mass Index 26.4 Tobacco/Smoking Status: Tobacco use Status Tobacco use date assessed 12/31/24 12/31/24 10:16 Patient Tobacco Use Status Former Tobacco user 12/31/24 10:16 e-Cigarette/Vaping Use Never Used 12/31/24 10:16 PHQ-9: PHQ-9 Score PHQ-9: Total score 4 12/31/24 10:52 Depression Screening Interpretation: Negative Thrive Assessment: Date of Thrive Assessment Date Thrive assessed 12/31/24 12/31/24 10:23 Currently or been in a relationship where the following occur: No concerns reported Coding Level of Care Code Est Pt Level 5 (07489) Complex EM visit Add On G2211 Diagnoses Family history of cancer Z80.9 Colon polyps K63.5 Chronic pain G89.29 HTN (hypertension) I10 Anxiety F41.9 Positive TRISH (antinuclear antibody) R76.8 Hypothyroid E03.9 Thoracic back pain M54.6 Chronic rhinitis J31.0 Additional Codes THIERNO-7 Assessment Billing - THIERNO-7 Assessment Tool: THIERNO-7 Assessment 40651 ([id number]) PHQ-9 - 75899 - PHQ-9 Billing: Yes ([id number]) Time Spent (min) 46 Comment chart review, direct care, documentation Assessment & Plan Assessment & Plan (1) Family history of cancer: Code(s): Z80.9 - Family history of malignant neoplasm, unspecified Category: Medical (2) Colon polyps: Code(s): K63.5 - Polyp of colon Category: Medical (3) Chronic pain: Code(s): G89.29 - Other chronic pain Category: Medical (4) HTN (hypertension): Code(s): I10 - Essential (primary) hypertension Category: Medical (5) Anxiety: Code(s): F41.9 - Anxiety disorder, unspecified Category: Medical (6) Positive TRISH (antinuclear antibody): Code(s): R76.8 - Other specified abnormal immunological findings in serum Category: Medical (7) Hypothyroid: Code(s): E03.9 - Hypothyroidism, unspecified Category: Medical Plan: Continue Levothyroxine. TSH normal. (8) Thoracic back pain: Code(s): M54.6 - Pain in thoracic spine Category: Medical Plan: Ordered xray and physiatry consult. (9) Chronic rhinitis: Code(s): J31.0 - Chronic rhinitis Category: Medical Plan Patient reports breast biopsy was negative. She will repeat the breast ultrasound in 6 months. She has an appointment with genetic counseling due to family history of cancer. She was referred dermatology for skin exam. [facility]MENT [facility]ER at [facility]. Patient's blood pressure is now well-controlled. Continue amlodipine and losartan. Chronic pain, positive TRISH, elevated CRP-pending rheumatology appointment. She has tried meloxicam, gabapentin, Tylenol, ibuprofen and cyclobenzaprine. Continue Tizanidine as needed. Cautioned this can cause sedation and drowsiness and not to drive or operate heavy machinery on this medication. Anxiety-currently using alprazolam as needed. The patient is cautioned that the medication can cause sedation and drowsiness. They should not drive or operate heavy machinery when taking it. They are cautioned it is a controlled substance which is addictive. It must be taken as prescribed. They can not drink alcohol with this medication since doing so can cause respiratory suppression and increase risk of falls which may result in morbidity and mortality. She has a colonoscopy scheduled for re-evaluation of polyps, and she is followed by [facility]. Patient endorses chronic rhinitis treated with OTC antihistamine. Interested in immunotherapy. Referred. Schedule physical exam. Orders: Orders XR thoracic spine 2V Today M54.6 - Pain in thoracic spine Referrals Allergy & Immunology Referral J31.0 - Chronic rhinitis Physiatry Referral M54.6 - Pain in thoracic spine Medications: Changed From cholecalciferol (vitamin D3) 800 units PO DAILY 180 caps 0RF To cholecalciferol (vitamin D3) 400 units PO DAILY 90 caps 0RF Discontinued potassium chloride ER Discontinued Reason: Doctor's Order 20 mEq PO DAILY 90 tabs 0RF
[2024-12-31 10:19] VITALS: BP 122/80; PULSE 95; TEMP 36.6; O2SAT 98; BMI 26.4
== END 2024-12-31 11:06 | disposition home or self-care (01) ==
LOC: HO.HMCFM 09:35
PROVIDERS: PCP Family Medicine; Visit Provider Physician Assistant Medical
DX: K63.5 Polyp of colon (principal); Z80.9 Family history of malignant neoplasm, unspecified; G89.29 Other chronic pain; I10 Essential (primary) hypertension; F41.9 Anxiety disorder, unspecified; R76.8 Other specified abnormal immunological findings in serum; E03.9 Hypothyroidism, unspecified; M54.6 Pain in thoracic spine; J31.0 Chronic rhinitis

== ENCOUNTER → 2024-12-31 12:26 | Outpatient (BNV) | payer OTHER, SELFPAY | PROVIDERS: PCP Family Medicine; Visit Provider Radiology Diagnostic Radiology | DX: M47.9 Spondylosis, unspecified (principal) | CPT/HCPCS: 72070 ==

== ENCOUNTER 2025-01-14 08:50 | Outpatient (AMB) | payer OTHER, SELFPAY ==
--- NOTE | 2025-01-14 08:58 | A.OFFVIS_ITS ---
Intake Visit Reasons: right kidney stone Intake Note: New Patient presents for initial visit for kidney stone Urology Medications: none Blood Thinner: none Sign Language Interpreter Required: No Accompanied by: Self / Same As Patient Allergies sumatriptan [SUMATRIPTAN] Allergy (Severe, Verified 01/14/25 09:04) THROAT SWELLING chlorthalidone Adverse Reaction (Intermediate, Uncoded 01/14/25 09:04) hypokalemia HPI Comments Details: Miracle is a pleasant 34-year-old female patient of Dr. Verma. She has a past medical history of thoracic back pain, PCOS, hypothyroidism, positive TRISH, insomnia, former smoker, chronic pain, headaches, nephrolithiasis, anxiety, and hypertension. She presents to the office today as a new patient for nephrolithiasis. In discussion with the patient today she reports noting over the last 18 months she has been having ongoing bilateral intermittent flank pain. In review of patient's chart it appears CT 11/27 the kidneys are normal in size, shape, and attenuation. No hydronephrosis or hydroureter noted bilaterally. There are bilateral tiny nonobstructing calculi measuring up to 3 mm in the left kidney upper pole in 2 mm in the right kidney mid pole. The bladder is decompressed the otherwise normal distal ureters are normal. She denies any previous history of nephrolithiasis and or surgical intervention for nephrolithiasis. She reports noting bilateral flank pain to be intermittent and self-limiting. In office urinalysis results reviewed with the patient today. She currently denies any bothersome urinary issues. She denies urinary urgency, urinary frequency, incontinence, nocturia, hematuria, dysuria, foul smelling urine, changes to urinary stream, fever, and or chills. She is happy with her current voiding parameters. We discussed at length potential causes of nephrolithiasis as well as the importance of adequate hydration relation to nephrolithiasis. We discussed obtaining Litholink and imaging for further assessment evaluation. She is agreeable. All questions were answered. She otherwise offers no other issues or concerns at this time. [facility] Medical History Chronic rhinitis Thoracic back pain Cloudy urine PCOS (polycystic ovarian syndrome) Low vitamin D level Hypothyroid Right flank pain Family history of melanoma Positive TRISH (antinuclear antibody) Elevated TSH Low blood potassium Contraception management Eczema History of gestational diabetes Insomnia Former smoker Chronic pain Colon polyps Family history of cancer Imbalance Memory loss Headache Kidney stones Anxiety HTN (hypertension) Surgical History Hx of tonsillectomy Family History Mother HTN (hypertension) Cardiovascular disease Thyroid disorder Father HTN (hypertension) Cancer Maternal Grandmother HTN (hypertension) High cholesterol Diabetes Cardiovascular disease Cancer Paternal Grandfather HTN (hypertension) High cholesterol Cancer Sister Asthma Social History Household Members: Significant Other and Children Both parents involved: No Caregiver staying overnight: No Housing: House Are you a primary professional healthcare representative to a significant other at home: Yes Do you presently have visiting nurse or other home services: No 75 years or older and lives alone: No Alcohol intake: current Alcohol intake frequency: a few times a month Patient Tobacco Use Status: Former Tobacco user Cigarettes Per Day: 10 Years Smoked: 10 e-Cigarette/Vaping Use: Never Used Second Hand Smoke Exposure: No service: No Current occupational status: unemployed Current occupational exposures/hazards: No Cognitive needs: No Hearing needs: No Vision needs: No Review of Systems Const All systems reviewed & are unremarkable except as noted in HPI and below Physical Exam Const General: cooperative, healthy appearing, comfortable, no acute distress, well developed, alert and awake Nutritional Appearance: average body habitus Orientation/consciousness: patient oriented x3 Limitations: no limitations HEENT Head: Yes normal to inspection, Yes normocephalic and Yes atraumatic Ears: hearing grossly normal bilaterally Eyes General: appearance normal, both eyes and all related structures Neck Neck: Yes normal visual inspection and Yes trachea midline Chest Chest palpation & inspection: normal inspection of the chest Resp Effort & Inspection: normal respiratory effort and able to speak in complete sentences Cardio Rate: regular rate GI Inspection: Yes normal to inspection General: Yes no CVA tenderness Back/Spine/Pelvis Back: no CVA tenderness Skin General skin exam: no rashes or lesions noted Neuro General: patient oriented x3 Extrem General: Yes normal to inspection Psych Appearance: grossly normal and well kempt Mental Status: mental status grossly normal Speech and movement: Normal speech and movement present and Clear speech present Affect: normal affect Attitude: cooperative Thought process: Normal thought process present Thought content: Normal thought content present Insight: Fair insight present (Psych) Judgement: Fair judgement present (Psych) Results AMB Urinalysis, Automated 2 UA Leukoctes 0 Cesilia/uL Last Edit by Annelise Brennan [facility] on 01/14/25 09:13 UA Nitrite Last Edit by Annelise Brennan [facility] on 01/14/25 09:13 UA Urobilinogen 0.2 mg/dL Last Edit by Annelise Brennan [facility] on 01/14/25 09:1 3 UA Protein 30 mg/dL Last Edit by Annelise Brennan [facility] on 01/14/25 09:13 UA pH 6.0 Last Edit by Annelise Brennan [facility] on 01/14/25 09:13 UA Blood 0 Devante/uL Last Edit by Annelise Brennan [facility] on 01/14/25 09:13 UA Specific Cadott 1.030 Last Edit by Annelise Brennan [facility] on 01/14/25 09: 13 UA Ketone Last Edit by Annelise Brennan [facility] on 01/14/25 09:13 UA Bilirubin 1 mg/dL Last Edit by Annelise Brennan [facility] on 01/14/25 09:13 UA Glucose 0 mg/dL Last Edit by Annelise Brennan [facility] on 01/14/25 09:13 Results Reviewed Results Reviewed: Laboratory Last Values Urine pH (Auto) 6.0 01/14/25 09:05 Specific Cadott (Auto) 1.030 01/14/25 09:05 Urine Protein (Auto) 30 mg/dL 01/14/25 09:05 Glucose (UA)(Auto) 0 mg/dL 01/14/25 09:05 Urine Blood (Auto) 0 Devante/uL 01/14/25 09:05 Urine Bilirubin (Auto) 1 mg/dL 01/14/25 09:05 Urine Urobilinogen (Auto) 0.2 mg/dL 01/14/25 09:05 Leukocyte Esterase (Auto) 0 Cesilia/uL 01/14/25 09:05 Date of Service: 11/30/24 Procedure(s): CT abdomen pelvis wo IV con FINDINGS: LUNG BASES: The visualized lung bases are unremarkable. LIVER, GALLBLADDER, AND BILIARY TREE: The unenhanced liver is normal in size, shape, and attenuation. Ila's lobe. No focal hepatic lesion or biliary ductal dilatation is present. The gallbladder is unremarkable with no evidence of radiopaque gallstones, gallbladder wall thickening, or obvious pericholecystic inflammatory changes. PANCREAS: Unremarkable. SPLEEN: Unremarkable. ADRENAL GLANDS: Unremarkable. KIDNEYS AND URETERS: The kidneys are normal in size, shape, and attenuation. No hydronephrosis or hydroureter. No perinephric stranding. There are bilateral tiny nonobstructing calculi, measuring up to 3 mm in the left kidney upper pole, and 2 mm in the right kidney midpole. BLADDER: Decompressed but otherwise normal. Distal ureters are normal. GASTROINTESTINAL TRACT: The small and large bowel are unremarkable. The appendix is unremarkable. ABDOMINAL WALL: No significant hernia is appreciated. LYMPH NODES: Normal. VASCULAR: Unremarkable. PELVIC VISCERA: The uterus and adnexa are unremarkable. OSSEOUS STRUCTURES: No suspicious lytic or blastic bone lesion. No acute findings. Disc degeneration focally at L5-S1. Bone island in L3. IMPRESSION: 1. Bilateral tiny nonobstructing renal calculi measuring up to 3 mm. No obstructing calculi identified. No hydronephrosis or hydroureter. 2. Remainder of the examination is normal. Assessment & Plan Assessment & Plan (1) Kidney stones: Code(s): N20.0 - Calculus of kidney Category: Medical Plan In office urinalysis results reviewed with the patient today; as noted above. Recent CT results reviewed with the patient today; as noted above. We discussed at length potential causes of nephrolithiasis as well as further interventions and risks and benefits of these interventions. Will obtain Litholink for further assessment evaluation. Will obtain renal ultrasound for further assessment evaluation. We discussed the importance of adequate hydration relation to nephrolithiasis as well as overall health and well-being. We discussed adding 1 oz of lemon juice to water daily. Start vitamin B6 as discussed and prescribed. She currently denies any bothersome urinary issues. She reports be happy with current voiding parameters. Follow-up in 3 months with Litholink and imaging; or sooner with any issues, concerns, and or questions. Orders: Orders AMB Urinalysis Automated Today Z13.9 - Encounter for screening, unspecified US renal BI 3 Months N20.0 - Calculus of kidney URORISK 3 Months N20.0 - Calculus of kidney Medications: New pyridoxine (vitamin B6) 100 mg PO DAILY 90 days 90 tabs 1RF Patient Instructions: The patient had an opportunity to ask questions regarding the treatment plan. All questions were answered. Physical exam, labs, and imaging were discussed and reviewed in detail. As well as risks, benefits, and discussion of treatment choices. No major barriers to understanding were identified. The patient expressed understanding and agreement with the above treatment plan. The patient was made aware they should contact our office by phone for worsening of their current condition, the appearance of new symptoms, or with any questions or concerns. Compliance is encouraged with any medications and follow up testing that is ordered. It is a privilege to be allowed the opportunity to participate in? your urological care.? Again, if you have any questions or concerns If you have any questions or concerns please do not hesitate to contact me. The office is [phone]. This note is constructed using voice recognition software. While every effort has been made to ensure accuracy corporate event planner errors may have been included. Yours sincerely, [facility] Coding Level of Care Code New Pt Level 4 (57938) Diagnoses Kidney stones N20.0
== END 2025-01-14 09:40 | disposition home or self-care (01) ==
LOC: HO.HUSH 08:50
PROVIDERS: PCP Family Medicine; Visit Provider Nurse Practitioner Family
DX: N20.0 Calculus of kidney (principal); Z13.9 Encounter for screening, unspecified
CPT/HCPCS: 99204

== ENCOUNTER → 2025-01-14 08:50 | Outpatient (BNVA) | payer OTHER, SELFPAY | PROVIDERS: PCP Family Medicine; Visit Provider Nurse Practitioner Family | DX: N20.0 Calculus of kidney (principal) | CPT/HCPCS: 81003; 99202 ==

== ENCOUNTER 2025-03-25 15:29 | Outpatient (AMB) | payer OTHER, SELFPAY ==
--- OUTSIDE RECORDS SUMMARY | 2021-04-28 09:40 | XMS_ITS | Encounter Summary ---
Author Organization [facility] Address [address] [place] [phone] Phone Care Team Providers Care Sew Out Operator Name Role Phone Pcp, Unknown Primary Care Provider Unavailabl e Encounter Details Date Type Department Care Team (Late st Contact Info) Description 04/28/2021 9:40 AM EDT Hospital Encounter [facility] [address] [place] [phone] Marlene Collins FNP [address] [place] [phone] [email or web address] Social History Tobacco Use Types Packs/Day [...] 10:07 PM EDT Agustín Smith RN * [place] Suicide Severity Rating Scale (Screener/Recent Self-Report) Question [...] abnormality. IMPRESSION: No acute abnormality. Marlene Collins DOOR MAKER IMG XR CHEST Final Resul t documented in this encounter Visit Diagnoses Not on filedocumented in this encounter Additional Health Concerns Infection Onset Date Last Indicated Resolved Time CoV-Risk 06/17/2022 06/17/2022 06/28/2022 12:2 3 PM EST CoV-Risk 08/05/2024 08/05/2024 08/16/2024 1:21 AM EST documented as of this encounter Care Teams Sew Out Operator Relationship Specialty Start Date End Date Pcp, Unknown PCP - General 04/28/21 02/22/24 documented as of this encounter Additional Source Comments The information contained in this document represents components of the legal health record. It is not the complete legal health record.[facility]
--- NOTE | 2025-03-25 15:23 | MHC.PC.OV ---
Intake Visit Reasons: Wellbutrin Intake Note: Miracle presents for a telehealth appointment to follow up on her medication. Allergies sumatriptan (SUMATRIPTAN) Allergy (Severe, Verified 03/25/25 15:24) THROAT SWELLING chlorthalidone Adverse Reaction (Intermediate, Uncoded 03/25/25 15:24) hypokalemia Tobacco use date assessed: 03/25/25 Dental Screening Dental Screen Date: 03/25/25 Did you have a dental visit in the last 12 months?: No Did you have a dental problem in the last 6 months where you did not have access to dental care?: No Was dental information given to patient?: Patient has dentist HPI HPI Comments History of Present Illness Details This is a 34-year-old female with a past medical history of recurrent nephrolithiasis, chronic rib pain, colon polyps, hypertension, insomnia, anxiety, prior obesity resolved after GLP 1 therapy, eczema and left breast masses presenting for follow up. She endorses improved mood and decreased food cravings on Wellbutrin. She is maintaining weight loss since GLP 1 was discontinued. She is attempting to exercise and doing a low carb diet. She is not having any sweets or soda. Her weight at home was 148 lb today. 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 She gets tense, feels disoriented and like her stomach is dropping. 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 She is okay if she has the passenger. It is better if she is driving in the slowly pain. No nausea or vomiting. She does have a history of anxiety. She takes alprazolam as needed, but she can not use it because it is sedating to drive. ROS: Constitutional: No unexplained weight loss, fever, chills or night sweats. Respiratory: No shortness of breath, cough or sputum production. Cardiovascular: No chest pain, chest pressure or chest discomfort. No palpitations or pedal edema. Gastrointestinal: No anorexia, nausea, vomiting or diarrhea. No abdominal pain Neurologic: No headache, dizziness, syncope. No vertigo. No tremors or seizures. Psychiatric:No SI/HI. [facility] Medical History (Updated 03/25/25 @ 17:12 by HAILEY Mendoza) Overweight Situational anxiety Chronic rhinitis Thoracic back pain Cloudy urine PCOS (polycystic ovarian syndrome) Low vitamin D level Hypothyroid Right flank pain Family history of melanoma Positive TRISH (antinuclear antibody) Elevated TSH Low blood potassium Contraception management Eczema History of gestational diabetes Insomnia Former smoker Chronic pain Colon polyps Family history of cancer Imbalance Memory loss Headache Kidney stones Anxiety HTN (hypertension) Surgical History Hx of tonsillectomy Family History Mother HTN (hypertension) Cardiovascular disease Thyroid disorder Father HTN (hypertension) Cancer Maternal Grandmother HTN (hypertension) High cholesterol Diabetes Cardiovascular disease Cancer Paternal Grandfather HTN (hypertension) High cholesterol Cancer Sister Asthma Social History (Updated 03/25/25 @ 15:26 by Liz Syed MA) Household Members: Significant Other and Children Both parents involved: No Caregiver staying overnight: No Housing: House Are you a primary pet care associate to a significant other at home: Yes Do you presently have visiting nurse or other home services: No 75 years or older and lives alone: No Alcohol intake: current Alcohol intake frequency: a few times a month Patient Tobacco Use Status: Former Tobacco user Cigarettes Per Day: 10 Years Smoked: 10 e-Cigarette/Vaping Use: Never Used Second Hand Smoke Exposure: No service: No Current occupational status: unemployed Current occupational exposures/hazards: No Cognitive needs: No Hearing needs: No Vision needs: No Questionnaire Thrive Questionnaire Date Thrive assessed: 09/24/24 I am a: Patient What is your living situation today?: I have a steady place to live Within the past 12 months, did the food you bought not last and you didn't have the money to get more?: Never true Within the past 12 months, did you worry whether your food would run out before you got money to buy more?: Never true Do you have trouble paying for medicines?: No Do you have trouble getting transportation to medical appointments?: No Do you have trouble paying your heating and electricity bill?: No Do you have trouble taking care of your child, family member or friend?: No Do you have trouble with day-to-day activities such as bathing, preparing meals, shopping, managing finances, etc.?: No Are you currently unemployed and looking for a job?: I choose not to answer this question Are you interested in more education?: No Please select the resources that you would like help with: None Currently or been in a relationship where the following occur: No concerns reported THRIVE Score: 0 THIERNO-7 AMB Questionnaire THIERNO-7 Date THIERNO - 7 assessed: 12/31/24 Source: Developed by Drs. Karthik Felton, Kristie Barrientos, Dave Brown and colleagues, with an educational joan from [employer]. Physical exam (Primary Care) Tobacco/Smoking Status: Tobacco use Status Tobacco use date assessed 03/25/25 03/25/25 15:27 Patient Tobacco Use Status Former Tobacco user 03/25/25 15:27 e-Cigarette/Vaping Use Never Used 03/25/25 15:27 Thrive Assessment: Date of Thrive Assessment Date Thrive assessed 09/24/24 03/25/25 15:27 Currently or been in a relationship where the following occur: No concerns reported Telehealth Telehealth Telehealth Platform: Telephone Location of provider rendering services: practice address Location of patient: address on file Patient Identification confirmed using: Name, : Yes Telehealth method: voice only Patient verbally consented to treatment: Yes Patient verbally consented to billing insurance company: Yes Patient informed of any privacy concerns related to visit: Yes Minutes spent on Phone/Video with Pt.: 10 Coding Level of Care Code Tele Est Pt Level 3 (49349) Diagnoses Situational anxiety F41.8 Anxiety F41.9 Overweight E66.3 Assessment & Plan Assessment & Plan (1) Situational anxiety: Code(s): F41.8 - Other specified anxiety disorders Category: Medical (2) Anxiety: Code(s): F41.9 - Anxiety disorder, unspecified Category: Medical (3) Overweight: Code(s): E66.3 - Overweight Category: Medical Plan Patient referred to Psychology for highway driving anxiety specifically. She will continue alprazolam as needed for anxiety, but she can not take this to drive or operate heavy machinery. She is aware it is addictive medication. Do not drink alcohol with this. Start sertraline 25 mg daily. Advised this is a low dose, and we can increase it based on effectiveness and tolerability. Black box warning reviewed. Continue bupropion which has helped with food cravings, and she has maintain weight loss after GLP 1 stopped being covered by insurance. She has an appointment with me in April for follow up. Orders: Referrals Psychology Referral F41.8 - Other specified anxiety disorders Medications: New sertraline 25 mg PO DAILY 30 tabs 0RF Changed From bupropion HCl (smoking deter) Take 1 tablet every morning for 3 days then increase to 1 tablet twice daily. 150 mg PO BID 180 tabs 0RF To bupropion HCl (smoking deter) 150 mg PO BID 180 tabs 3RF
== END 2025-03-25 17:10 | disposition home or self-care (01) ==
LOC: HO.HMCFM 15:29
PROVIDERS: PCP Physician Assistant Medical; Visit Provider Physician Assistant Medical
DX: F41.8 Other specified anxiety disorders (principal); F41.9 Anxiety disorder, unspecified; E66.3 Overweight

== ENCOUNTER 2025-04-07 10:33 | Outpatient (AMB) | payer OTHER, SELFPAY ==
--- OUTSIDE RECORDS SUMMARY | 2021-04-28 09:40 | XMS_ITS | Encounter Summary ---
Author Organization [facility] Address [address] [place] [phone] Phone Care Team Providers Care Senior Accounting Manager Name Role Phone Pcp, Unknown Primary Care Provider Unavailabl e Encounter Details Date Type Department Care Team (Late st Contact Info) Description 04/28/2021 9:40 AM EDT Hospital Encounter [facility] [address] [place] [phone] Marlene Collins FNP [address] [place] [phone] [email or web address] Social History Tobacco Use Types Packs/Day Years Used Date Smoking Tobacco: Every Day Cigarettes Smokeless Tobacco: Never Alcohol Use Standard Drinks/Week Comments Yes 0 (1 standard drink = 0.6 oz pur e alcohol) More socially Education Answer Date Recorded Are you interested in more education? Not on chris e 12/01/2022 Are you concerned about learning? Not on file 12/01/2022 No 12/01/2022 No 12/01/2022 Digital Access Answer Date Recorded No 12/30/2022 No 12/30/2022 Reliable internet access at home? Not on file 12/30/2022 Device with a working camera? Not on file Intimate Partner Violence Answer Date R ecorded Are you denied basic needs s uch as food, clothing, or medical care? No 02/23/2024 In the past 12 months have y ou been in a relationship with a person who hurts, threatens, or tries to control you? No 02/23/2024 Are you denied basic needs s uch as food, clothing, or medical care? No 02/23/2024 In the past 12 months have y ou been in a relationship with a person who hurts, threatens, or tries to control you? No 02/23/2024 Comments Unknown Sex and Gender Information Value Date Recorded Sex Assigned at Unknown 02/23/2024 10:47 PM EDT Legal Sex Female 8:55 AM EDT Gender Identity Choose not to disclose 4 10:47 PM EDT Sexual Orientation Don't know 02/23/2024 10 :47 PM EDT documented as of this encounter Functional Status * Calculated C-SSRS Risk Score (Lifetime/Recent) Answer Date of Assessment Author No Risk Indicated 02/23/2024 10:07 PM EDT Agustín Smith RN * [place] Suicide Severity Rating Scale (Screener/Recent Self-Report) Question Answer Date of Assessment Author 1. Wish to be (Past 1 Month) No 024 10:07 PM EDT Agustín Smith RN 2. Non-Specific Active Suici tj Thoughts (Past 1 Month) No 02/23/2024 10:07 PM EDT Sandy Smith ea, RN 6. Suicidal Behavior (Lifetime) No 4 10:07 PM EDT Agustín Smith, PAT documented as of this encounter Plan of Treatment Not on file documented as of this encounter Procedures Procedure Name Priority Date/Time Associated Diagnosis Comments XR CHEST PA AND LATERAL 2 VIEWS Urgent/patient waiting 04/28/2021 9:50 AM EDT Persistent cough documented in this encounter Results * XR CHEST PA AND LATERAL 2 VIEWS (04/28/2021 9:50 AM EDT) Anatomical Region Laterality Modality Chest Computed Radiogr aphy 04/28/2021 9:53 AM EDT Impressions 04/28/2021 9:54 AM EDT No acute abnormality. Narrative 04/28/2021 9:54 AM EDT XR CHEST PA AND LATERAL 2 VIEWS COMPARISON: None. FINDINGS: Devices/Tubes/Lines: None. Lungs: No focal consolidation or pulmonary edema. Pleura: No pleural effusions or pneumothorax. Heart/Mediastinum: Normal cardiomediastinal silhouette. Bones/Soft Tissues: No significant skeletal abnormality. Procedure Note Fang Melara MD - 04/28/2021 XR CHEST PA AND LATERAL 2 VIEWS COMPARISON: None. FINDINGS: Devices/Tubes/Lines: None. Lungs: No focal consolidation or pulmonary edema. Pleura: No pleural effusions or pneumothorax. Heart/Mediastinum: Normal cardiomediastinal silhouette. Bones/Soft Tissues: No significant skeletal abnormality. IMPRESSION: No acute abnormality. Marlene Collins AFTER SCHOOL DRIVER IMG XR CHEST Final Resul t documented in this encounter Visit Diagnoses Not on filedocumented in this encounter Additional Health Concerns Infection Onset Date Last Indicated Resolved Time CoV-Risk 06/17/2022 06/17/2022 06/28/2022 12:2 3 PM EST CoV-Risk 08/05/2024 08/05/2024 08/16/2024 1:21 AM EST documented as of this encounter Care Teams Senior Accounting Manager Relationship Specialty Start Date End Date Pcp, Unknown PCP - General 04/28/21 02/22/24 documented as of this encounter Additional Source Comments The information contained in this document represents components of the legal health record. It is not the complete legal health record.[facility]
--- NOTE | 2025-04-07 10:43 | MHC.OFFVIS ---
Vital Signs 04/07/25 10:45 Weight 148 lb 5.938 oz BP 120/70 Blood Pressure Location Lt brachial Position Sitting Pulse 93 Pulse Source Pulse Oximeter Pulse Oximetry (%) 99 Oxygen Delivery Method Room Air Intake Visit Reasons: abnormal labs Intake Note: Patient is here to discuss abnormal labs. Accompanied by: Self / Same As Patient Allergies sumatriptan (SUMATRIPTAN) Allergy (Severe, Verified 03/25/25 15:24) THROAT SWELLING chlorthalidone Adverse Reaction (Intermediate, Uncoded 03/25/25 15:24) hypokalemia HPI HPI abnormal labs: Details: New patient evaluation +TRISH 1:80 and elevated CRP. Chronic rib pain attributed to recurrent nephrolithaisis. She has had pain right upper quadrant since childhood feels like a bruise. Feels like a spasm at times. Spontaneous onset. Daily for the last 2 years. Pain in right anterior chest for 4 years. Drinking ice cold water exacerbates the pain. No benefit heating patch, stretching, gabapentin, cyclobenzaprine, naproxen, diclofenac po. She had epsiodes of presyncope for the last year. Feels like she is going down a rollercoaster. This symptom occurs when she is driving on the highway, which now she avoids. Progressively getting more frequent. Her blood pressure is normal when episodes occur. Two years ago in August she had low blood counts. At the time she was also having recurrent right upper quadrant pain. She has had multiple imaging studies over the last [address] scans and ultrasounds, which have revealed only mild hepatic steatosis on two imaging studies and nephrolithiasis. She has also been worked up for bloody stools with colonoscopies and reports that she does not have Crohn's disease. She has yearly colonoscopies. Over the last 2 years her weight has fluctuated. She lost weight with GLP 1 agonist. More recently her weight has been stable. She has fatigue, weakness, night sweats, double and blurry vision. She has been experiencing dry eyes. She wakes up with crusting around her eyes. She has had allergy testing, which was unremarkable. She is experiencing memory loss, hair loss, difficulty falling asleep. She had 1 miscarriage at 14 weeks. No history DVT or PE. One term . She has an 8-year-old child without complications. No joint swelling or joint pain at this time. Denies rash, Raynaud's phenomenon, dry mouth, ulcers in mouth, urinary symptoms. Past medical history is significant for depression, breast masses that that are in surveillance. She had bilateral ACL and meniscus tear. Paternal grandfather had rheumatoid arthritis and gout She smokes a quarter of a pack per day for 10 years. She drinks 1-2 drinks a week. No recreational drug use PFSH Medical History Overweight Situational anxiety Chronic rhinitis Thoracic back pain Cloudy urine PCOS (polycystic ovarian syndrome) Low vitamin D level Hypothyroid Right flank pain Family history of melanoma Positive TRISH (antinuclear antibody) Elevated TSH Low blood potassium Contraception management Eczema History of gestational diabetes Insomnia Former smoker Chronic pain Colon polyps Family history of cancer Imbalance Memory loss Headache Kidney stones Anxiety HTN (hypertension) Surgical History Hx of tonsillectomy Family History Mother HTN (hypertension) Cardiovascular disease Thyroid disorder Father HTN (hypertension) Cancer Maternal Grandmother HTN (hypertension) High cholesterol Diabetes Cardiovascular disease Cancer Paternal Grandfather HTN (hypertension) High cholesterol Cancer Sister Asthma Social History Household Members: Significant Other and Children Both parents involved: No Caregiver staying overnight: No Housing: House Are you a primary healthcare financial analyst to a significant other at home: Yes Do you presently have visiting nurse or other home services: No 75 years or older and lives alone: No Alcohol intake: current Alcohol intake frequency: a few times a month Patient Tobacco Use Status: Former Tobacco user Cigarettes Per Day: 10 Years Smoked: 10 e-Cigarette/Vaping Use: Never Used Second Hand Smoke Exposure: No service: No Current occupational status: unemployed Current occupational exposures/hazards: No Cognitive needs: No Hearing needs: No Vision needs: No Physical Exam Vital Signs: Last Vital Signs Pulse 93 04/07/25 10:45 BP 120/70 04/07/25 10:45 Pulse Ox 99 04/07/25 10:45 Oxygen Delivery Method Room Air 04/07/25 10:45 Const Other: General: Comfortable CVS: RRR Respiratory: clear to auscultation bilaterally. Good respiratory effort Skin: No lesions seen Abdomen: No hepatomegaly or masses palpated MSK: She has localized tenderness to right sternum, right sternoclavicular joint and laterally. She also is experiencing localized tenderness to right upper quadrant region around her ribcage. No tender joints. No synovitis. Normal range of motion of upper extremities and lower extremities. Assessment & Plan Assessment & Plan (1) Muscular chest pain: Comment: Clinical exam is suggestive of muscular strain. We discussed conservative management. She has failed heating patch, stretching, gabapentin, cyclobenzaprine, naproxen, diclofenac po. Code(s): R07.89 - Other chest pain Category: Medical Plan: Try diclofenac gel 1% applied to affected area q.i.d. Baseline labs ordered Apply ice or heat to area twice a day PT requisition given to patient to have done at [facility], where she has been referred for back pain management. PT eval with myofascial release, modalities and exercise strengthening program. Return to clinic in 3 months (2) Muscular abdominal pain in right upper quadrant: Code(s): M79.18 - Myalgia, other site Category: Medical Plan: PT eval includes TENs unit trail As above (3) Positive TRISH (antinuclear antibody): Comment: Low titer positive 1:80, mild elevation in CRP with history of dry eyes and low blood counts in August 2022 (pt report). I will further workup for Sjogren syndrome and complete my workup for SLE. My suspicion for SLE based on my evaluation is low. [facility], which reveal normal CBC with normal kidney function. Code(s): R76.8 - Other specified abnormal immunological findings in serum Category: Medical Plan: Labs ordered I recommend that she have an eye exam for evaluation of blurry vision and dry eyes Return to clinic in 3 months (4) Pre-syncope: Code(s): R55 - Syncope and collapse Category: Medical Plan: I recommend that she follow up with PCP for evaluation of her presyncopal symptoms that are progressively becoming more frequent in the last year. Prior history of hypokalemia of unclear etiology. ? Arrhythmia/dysautonomia contributing requiring cardiac evaluation. Patient will discuss with PCP at her upcoming follow up. Orders: Orders Complete Blood Count Auto Diff Today R76.0 - Raised antibody titer Alanine Aminotransferase Today R76.0 - Raised antibody titer Creatinine Today R76.0 - Raised antibody titer C Reactive Protein Today R76.0 - Raised antibody titer Erythrocyte Sedimentation Rate Today R76.0 - Raised antibody titer UA ClnCatch+Micro w/rflx Cult Today R76.0 - Raised antibody titer Protein Creatinine Ratio, Ur Today R76.0 - Raised antibody titer Anti DNA DS Antibody Today R76.0 - Raised antibody titer Sjogren's Antibodies Today R76.0 - Raised antibody titer Aspartate Amino Transferase Today R76.0 - Raised antibody titer Sm Sm/MIXING MACHINE TENDER CORK ROD Antibodies Today R76.0 - Raised antibody titer Complement C3 Today R76.0 - Raised antibody titer Complement C4 Today R76.0 - Raised antibody titer PT Evaluation and Treatment Today M79.18 - Myalgia, other site, R07.89 - Other chest pain Medications: New diclofenac sodium 1% 4 grams topical QID PRN 100 grams 5RF pain Coding Level of Care Code New Pt Level 4 (14400) Complex EM visit Add On G2211 Diagnoses Muscular chest pain R07.89 Muscular abdominal pain in right upper quadrant M79.18 Positive TRISH (antinuclear antibody) R76.8 Pre-syncope R55
[2025-04-07 10:45] VITALS: BP 120/70; PULSE 93; O2SAT 99
--- OUTSIDE RECORDS SUMMARY | 2025-04-07 12:19 | XMS_ITS | Encounter Summary ---
Author Organization [employer] Address [address] [place] [address] [address] [place] [address] Care Team Providers Care Pega Developer Name Role Phone Riri Avina DO Primary Care Provider [phone] Reason for Visit * Reason Onset Date Comments Appointment 10/29/2022 Encounter Details Date Type Department Care Team ([facility] st Contact Info) Description 10/29/2022 Telephone [facility] [address] [place], [place] [phone] Connor High DDS [address] [place] [address] Appointment Social History Tobacco Use Types Packs/Day [...] on filedocumented in this encounter Care Teams Pega Developer Relationship Specialty Start Date End Date Riri Avina DO [address] [place] [id number] PCP - General Family Medicine 05/05/24 documented as of this encounter
--- OUTSIDE RECORDS SUMMARY | 2025-04-07 12:19 | XMS_ITS | Encounter Summary ---
Author Organization [employer] Address [address] [facility] [address]t [place] [address] Care Team Providers Care Truck Service Technician Name Role Phone King Riri Primary Care Provider [phone] Encounter Details Date Type Department Care Team (Late st Contact Info) Description 08/14/[address] [facility] MEDICAL [address] [place] [address] Provider, Historical, Social History Tobacco Use Types Packs/Day Years [...] * Surgical Pathology (11/21/2023 3:59 PM EDT) us Historical Provider LAB PATHOLOGY ORDERABLES Final Result * HM PAP/HPV (06/20/2022 4:01 PM EST) us Historical Provider HEALTH MAINTENANCE Final Result documented in this encounter Visit Diagnoses Not on filedocumented in this encounter Care Teams Truck Service Technician Relationship Specialty Start Date End Date Riri Avina DO [address] [place] [address] PCP - General Family Medicine 05/05/24 documented as of this encounter
--- OUTSIDE RECORDS SUMMARY | 2025-04-07 12:19 | XMS_ITS | Clinical Summary ---
Author Organization [employer] Address [address] [place] [address] [address] [place] [address] Care Team Providers Care Manager Brand Name Role Phone Riri Avina DO Primary Care Provider [phone] Allergies Active Allergy Reactions Criticality Noted Date Comments Sumatriptan Anaphylaxis High 04/28/2021 Medications amoxicillin-clav ulanate (Augmentin) 500-125 MG tabletIndication s:Dental abscess Take 1 tablet (500 mg) by mouth 3 times daily. 30 tablet 10/04/2022 Active Active Problems Problem Noted Date Diagnosed Date Abdominal pain 08/20/2024 Overview (08/20/2024): Images from the original note were not included. Immunizations Immunization Administration Dates Next Due INFLUENZA INJECTABLE QUADRIV [...] 1989 HIV Screening 1989 SDOH Screening 1989 Disability Screening 1989 Alcohol/Substance Use Screening 2001 Family Planning (PISQ) 2004 HPV Vaccines (1 - 3-dose series) 2004 Hepatitis C Screening 10/18/2007 Hepatitis B Vaccines (1 of 3 - 19+ 3-dose series) 2008 Dental Oral Exam 04/20/2023 2022 Tobacco Screening 04/01/2024 04/01/2023 Dental X-Ray: Bitewings 04/02/2024 04/01/2023 COVID-19 Vaccine (3 - 2023-2 5 season) 2024 05/09/2021, 04/18/2021 Influenza Vaccine (#1) 2025 , 06/28/2020 DTaP/Tdap/Td Vaccines (2 - T [...] patient's age to complete this topic Meningococcal B Vaccine Aged Out No l onger eligible based on patient's age to complete this topic Meningococcal Vaccine Aged Out No almaz heather eligible based on patient's age to complete this topic Pneumococcal Vaccine: Pediatrics (0 to 5 Years) and At-Risk Patients (6 to 49) Years Aged Out No longer eligible b ased [...] MD LAB CYTOLOGY ORDERABLES F inal Result [facility] [address] [place] [address] from Last 3 Months or Most Recently Relevant to Health Maintenance Insurance [facility] , [address] [place] [address] [facility] Care Teams Manager Brand Relationship Specialty Start Date End Date Riri Avina DO [address] [place] [address] PCP - General Family Medicine 05/05/24
--- OUTSIDE RECORDS SUMMARY | 2025-04-07 12:19 | XMS_ITS | Clinical Summary ---
Author Organization [facility] Address [address] [place] [phone] Phone Care Team Providers Care Marketing And Communications Officer Name Role Phone Mae Madison HEATING AND REFRIGERATION INSPECTOR Primary Care Provider + Allergies Active Allergy Reactions Criticality Noted Date Comments Sumatriptan Anaphylaxis High 04/28/2021 Medications APRI 0.15-0.03 mg per tablet Take 1 tablet by mouth daily. 1 Active cyclobenzaprine (FLEXERIL) 10 MG tablet Take 1 tablet (10 mg total) by mouth 3 (three) times a day as needed (muscle). 15 tablet 2 Active Additional Information Patient not taking.Reported on 06/17/2022 ibuprofen (ADVIL,MOTRIN) 600 MG tablet Take 1 tablet (600 mg total) by mouth 3 (three) times a day for 3 days. Then tid prn pain/inflammatio n 30 tablet 2 Active albuterol (PROAIR HFA) 90 mcg/actuation inhaler Inhale 2 puffs into the lungs every 4 (four) hours as needed for wheezing. 18 g 2 Active Additional Information Patient not taking.Reported on 08/05/2024 benzonatate (TESSALON) 100 MG capsule Take 2 capsules (200 mg total) by mouth 3 (three) times a day as needed for cough. 21 capsule 2 Active Additional Information Patient not taking.Reported on 08/05/2024 ALPRAZolam (XANAX) 0.5 MG tablet TAKE 1 TABLET BY MOUTH TWICE A DAY NEEDED SPARING USE 30 DAYS 4 Active hydroCHLOROthiaz sharyn 12.5 mg capsule Take 12.5 mg by mouth. 4 Active losartan (COZAAR) 100 MG tablet Take 1 tablet by mouth every morning. 4 Active ondansetron (ZOFRAN) 8 MG tablet Take 8 mg by mouth every 12 (twelve) hours as needed for nausea. 4 Active ZEPBOUND 5 mg/0.5 mL subcutaneous pen INJECT 0.5 ML SUBCUTANEOUS ONCE EVERY 7 DAYS 30 DAYS 4 Active triamcinolone acetonide (KENALOG) 0.025 % lotion APPLY 1 APPLICATION EXTERNALLY EVERY DAY FOR 7 DAYS 4 Active Active Problems Problem Noted Date Diagnosed Date Gastroesophageal reflux disease 08/05/2024 Resolved Problems Problem Noted Date Diagnosed Date Resolved Date Torn ACL 08/05/2024 08/05/2024 Immunizations Immunization Administration Dates Next Due Influenza Quadrivalent MDCK w/Preservative IM Tdap 10/12/2016 Social History Tobacco Use Types Packs/Day Years Used Date Smoking Tobacco: Every Day Cigarettes Smokeless Tobacco: Never Tobacco Cessation:Ready to Q uit: Not Asked; Counseling Given: Not Answered Alcohol Use Standard Drinks/Week Comments Yes 0 [...] EDT Gender Identity Choose not to disclose 10:47 PM EDT Sexual Orientation Don't know 02/23/2024 10 :47 PM EDT Last Filed Vital Signs Vital Sign Reading Time Taken Comments Blood Pressure 127/79 08/05/2024 10:25 AM EST Pulse 90 08/05/2024 10:25 AM EST Temperature 36.7 C (98.1 F) 08/05/2024 10:25 AM EST Respiratory Rate 18 08/05/2024 10:25 AM EST Oxygen Saturation 99% 08/05/2024 10:25 AM EST Inhaled Oxygen Concentration - - Weight 77.1 kg (170 lb) 02/23/2024 10:06 PM EDT Height 160 cm (5' 3 ) 02/23/2024 10:06 PM EDT Body Mass Index 30.11 02/23/2024 10:06 PM EDT Plan of Treatment Health Maintenance Due Date Last Done Comments DEPRESSION SCREENING 2001 SMOKING Hx and SMOKELESS TOBACCO SCREENING 2002 HEPATITIS C SCREENING 10/18/2007 HIV ONE-TIME SCREENING (18-6 5 YEARS) 10/18/2007 PNEUMOCOCCAL VACCINES (0-49 years) (1 of 2 - PCV) 2008 PAP SMEAR 2010 COVID-19 VACCINE (3 - 2023-2 5 season) 2024 05/09/2021, 04/18/2021 CREATININE LEVEL 02/22/2025 02/23/2024 POTASSIUM LEVEL 02/22/2025 02/23/2024 Adult Td,Tdap Booster 10/12/2026 10/12/2016 SCREENING FOR DIABETES 02/22/2027 02/23/2024 HEPATITIS A VACCINES Aged Out No long er eligible based on patient's age to complete this topic HIB VACCINES Aged Out No longer eligi ble based on patient's age to complete this topic MENINGOCOCCAL VACCINES (ACWY) Aged Out No longer eligible based on patient's age to complete this topic MENINGOCOCCAL VACCINES (B) Aged Out N o longer eligible based on patient's age to complete this topic Medical Devices Not on file Procedures Procedure Name Priority Date/Time Associated Diagnosis Comments BASIC METABOLIC PANEL STAT 02/23/2024 10:20 PM EDT from Last 3 Months or Most Recently Relevant to Health Maintenance Results * (ABNORMAL) Basic metabolic panel (02/23/2024 10:20 PM EDT) SODIUM 138 133 - 146 mmol/L [facility] CHLORIDE 104 96 - 108 mmol/L [facility] POTASSIUM 3.5 3.3 - 5.1 mmol/L [facility] CO2 22 21 - 35 mmol/L [facility] BUN 24(H) 6 - 19 mg/dL [facility] CREATININE 0.90 0.5 - 1.5 mg/dL [facility] GLUCOSE 97 70 - 99 mg/dL [facility] CALCIUM 9.6 8.4 - 10.3 mg/dL [facility] EGFR 86 >59 mL/min/1.7 3m2 [facility] Comment:Estimated glomerular filtration rate calculated using the CKD-EPI refit equation. ANION GAP 16 10 - 20 mmol/L [facility] Blood 02/23/2024 10:2 0 PM EDT 02/23/2024 10:24 PM EDT us Edwardo Hair DO LAB BLOOD ORDERABLES Final Re sult [facility] [address] [place] [address] from Last 3 Months or Most Recently Relevant to Health Maintenance Insurance [facility] [address] [place] [address] [place], [place] [address] [place], [place] [address]O O O O [facility] HMO Care Teams Marketing And Communications Officer Relationship Specialty Start Date End Date Mae Madison NP [address] [place] [address] PCP - General Nurse Practitioner 02/23/24 Additional Source Comments The information contained in this document represents components of the legal health record. It is not the complete legal health record.[facility]
--- OUTSIDE RECORDS SUMMARY | 2025-04-07 12:19 | XMS_ITS | Encounter Summary ---
Author Organization [facility] Address [address] [place] [address] Phone Care Team Providers Care Custom Garment Designer Name Role Phone Mae Madison MEAT SALES AND STORAGE MANAGER Primary Care Provider + Encounter Details Date Type Department Care Team (Late st Contact Info) Description 02/23/2024 Procedure Pass [facility], Ct Scan - [address] [address] Social History Tobacco Use Types Packs/Day Years [...] 10:07 PM EDT Agustín Smith RN * [place] Suicide Severity Rating Scale (Screener/Recent Self-Report) Question Answer Date of Assessment Author 1. Wish to be (Past 1 Month) No 024 10:07 PM EDT Agustín Smith RN 2. Non-Specific Active Suici tj Thoughts (Past 1 Month) No 02/23/2024 10:07 PM EDT Sandy Smith ea, RN 6. Suicidal Behavior (Lifetime) No 4 10:07 PM EDT Agustín Smith RN documented as of this encounter Plan of Treatment Not on file documented as of this encounter Visit Diagnoses Not on filedocumented in this encounter Additional Health Concerns Infection Onset Date Last Indicated Resolved Time CoV-Risk 08/05/2024 08/05/2024 08/16/2024 1:21 AM EST documented as of this encounter Care Teams Custom Garment Designer Relationship Specialty Start Date End Date Mae Madison NP [address] [place] [address] PCP - General Nurse Practitioner 02/23/24 documented as of this encounter Additional Source Comments The information contained in this document represents components of the legal health record. It is not the complete legal health record.[facility]
--- OUTSIDE RECORDS SUMMARY | 2025-04-07 12:19 | XMS_ITS | Encounter Summary ---
Author Organization [employer] Address [address] [facility] [address]t [place] [address] Care Team Providers Care Visual Merchandising Coordinator Name Role Phone Riri Avina DO Primary Care Provider [phone] Encounter Details Date Type Department Care Team (Late st Contact Info) Description 03/27/2023 Telephone [facility] [address] [place] [address] Tali Elliott DMD Social History Tobacco Use [...] on filedocumented in this encounter Care Teams Visual Merchandising Coordinator Relationship Specialty Start Date End Date Riri Avina DO [address] [place] [address] PCP - General Family Medicine 05/05/24 documented as of this encounter
== END 2025-04-07 11:49 | disposition home or self-care (01) ==
LOC: HO.RHES 10:33
PROVIDERS: PCP Physician Assistant Medical; Visit Provider Internal Medicine Rheumatology
DX: R07.89 Other chest pain (principal); M79.18 Myalgia, other site; R76.8 Other specified abnormal immunological findings in serum; R55 Syncope and collapse
CPT/HCPCS: 99204

== ENCOUNTER 2025-04-07 10:33 | Outpatient (REF) | payer OTHER, SELFPAY ==
[2025-04-07 17:49] LABS: MANUAL DIFF FLAG NO
[2025-04-07 18:02] LABS: Hematocrit 41.9 % (37.0-47.0); Hemoglobin 14.1 g/dl (12.0-16.0); Imm Gran Abs Auto 0.02 X10*3/uL (0.00-0.03); Imm Gran Pct Auto 0.3 % (0.0-0.4); Lymphocytes Absolute Auto 1.8 X10*3/uL (1.2-4.9); Mean Corpuscular HGB Conc 33.7 g/dl (31.0-35.0); Mean Corpuscular Hemoglobin 29.4 pg (27.0-33.0); Mean Corpuscular Volume 87.5 fL (80.0-98.0); NRBC Abs Auto 0.000 X10*3/uL (0.0-0.012); NRBC Pct Auto 0.0 /100WBC (0.0-0.2); Platelet Count 249 X10*3/uL (160-400); Red Blood Count 4.79 X10*6/uL (4.20-5.50); White Blood Count 6.9 X10*3/uL (4.8-10.8)
[2025-04-07 18:08] LABS: Total Protein Urine Random < 7 mg/dL (<12)
[2025-04-07 18:11] LABS: Appearance Urine Clear; Glucose Urine UA Negative (Negative); PH 6.0 (5.0-9.0); Specific Gravity - Urine 1.010 (1.005-1.025)
[2025-04-07 18:13] LABS: Alanine Aminotransferase 29 U/L (0-31); Aspartate Amino Transferase 20 U/L (5-31); Estimated Glomerular Filt Rate > 60
[2025-04-08 16:34] LABS: Antibody to SS-A Antigen <1.0 NEG AI (<1.0 NEG); Antibody to SS-B Antigen <1.0 NEG AI (<1.0 NEG); SM/Ribonucleoprotein Ab <1.0 NEG AI (<1.0 NEG); Smith Protein <1.0 NEG AI (<1.0 NEG)
== END 2025-04-07 10:34 | disposition home or self-care (01) ==
LOC: HO.HKASLDS 10:33
PROVIDERS: PCP Physician Assistant Medical; Visit Provider Internal Medicine Rheumatology
DX: R07.89 Other chest pain (principal); R76.0 Raised antibody titer; M79.18 Myalgia, other site; R76.8 Other specified abnormal immunological findings in serum; R55 Syncope and collapse
CPT/HCPCS: 36415; 81001; 82565; 82570; 84156; 84450; 84460; 85025; 85652; 86140; 86160; 86225; 86235; 99202

== ENCOUNTER 2025-04-12 09:22 | Outpatient (REF) | payer OTHER, SELFPAY ==
--- OUTSIDE RECORDS SUMMARY | 2021-04-28 09:40 | XMS_ITS | Encounter Summary ---
Author Organization [facility] Address [address] [place] [phone] Phone Care Team Providers Care Group Product Manager Name Role Phone Pcp, Unknown Primary Care Provider Unavailabl e Encounter Details Date Type Department Care Team (Late st Contact Info) Description 04/28/2021 9:40 AM EDT Hospital Encounter [facility] [address] [place] [phone] Marlene Collins FNP [address] [place] [phone] [email or web address] Social History Tobacco Use Types Packs/Day [...] 10:07 PM EDT Agustín Smith RN * [place] Suicide Severity Rating Scale (Screener/Recent Self-Report) Question [...] abnormality. IMPRESSION: No acute abnormality. Marlene Collins TRAY PACKER IMG XR CHEST Final Resul t documented in this encounter Visit Diagnoses Not on filedocumented in this encounter Additional Health Concerns Infection Onset Date Last Indicated Resolved Time CoV-Risk 06/17/2022 06/17/2022 06/28/2022 12:2 3 PM EST CoV-Risk 08/05/2024 08/05/2024 08/16/2024 1:21 AM EST documented as of this encounter Care Teams Group Product Manager Relationship Specialty Start Date End Date Pcp, Unknown PCP - General 04/28/21 02/22/24 documented as of this encounter Additional Source Comments The information contained in this document represents components of the legal health record. It is not the complete legal health record.[facility]
--- NOTE | ~2025-04-12 | US_ITS ---
EXAMINATION: US KIDNEY BILATERAL HISTORY: N20.0 - Calculus of kidney TECHNIQUE: Real-time grayscale ultrasound imaging of the kidneys was performed and images were reviewed. COMPARISON: Comparison is made with the prior examination dated 11/12/2024. FINDINGS: Right kidney: The right kidney measures 13.0 x 4.6 x 6.5 cm. Renal parenchymal echotexture and thickness are normal. There are no masses. There is a 3 mm nonobstructing calculus at the lower pole. There is no hydronephrosis. Left Kidney: The left kidney measures 13.1 x 5.2 x 4.2 cm. Renal parenchymal echotexture and thickness are normal. There are no masses. There is a 3 mm nonobstructing calculus at the lower pole. There is no hydronephrosis. US/US renal BI IMPRESSION: Nonobstructing 3 mm calculi at the lower poles of both kidneys. No hydronephrosis. Electronically signed by: Karthik Armenta MD 04/12/2025 10:09 AM EDT
--- OUTSIDE RECORDS SUMMARY | 2025-04-12 10:32 | XMS_ITS | Encounter Summary ---
Author Organization [employer] Address [address] [facility] [address]t [place] [address] Care Team Providers Care Dry Wall Installer Name Role Phone King Riri Primary Care Provider [phone] Encounter Details Date Type Department Care Team (Late st Contact Info) Description 08/14/2024 Orders Only [facility] MEDICAL [address] [place] [address] Provider, Historical, Social History Tobacco Use Types [...] on filedocumented in this encounter Care Teams Dry Wall Installer Relationship Specialty Start Date End Date Riri Avina DO [address] [place] [address] PCP - General Family Medicine 05/05/24 documented as of this encounter
--- OUTSIDE RECORDS SUMMARY | 2025-04-12 10:32 | XMS_ITS | Encounter Summary ---
Author Organization [employer] Address [address] [place] [address] [address] [place] [address] Care Team Providers Care Textiles And Clothing Teacher Name Role Phone Riri Avina DO Primary Care Provider Reason for Visit * Reason Onset Date Comments Appointment 10/29/2022 Encounter Details Date Type Department Care Team ([facility] st Contact Info) Description 10/29/2022 Telephone [facility] [address] [place], [place] [phone] Connor High DDS [address] [place] [address] Appointment Social History Tobacco Use Types Packs/Day [...] on filedocumented in this encounter Care Teams Textiles And Clothing Teacher Relationship Specialty Start Date End Date Riri Avina DO [address] [place] [id number] PCP - General Family Medicine 05/05/24 documented as of this encounter
--- OUTSIDE RECORDS SUMMARY | 2025-04-12 10:32 | XMS_ITS | Clinical Summary ---
Author Organization [facility] Address [address] [place] [phone] Phone Care Team Providers Care Clinical Research Specialist Name Role Phone Mae Madison RESHIPPING CLERK Primary Care Provider + Allergies Active Allergy [...] 2 - PCV) 2008 PAP SMEAR 2010 CREATININE LEVEL 02/22/2025 02/23/2024 POTASSIUM LEVEL 02/22/2025 02/23/2024 INFLUENZA VACCINE (#1) 2025 06/28/2020 COVID-19 VACCINE (3 - 2024-2 6 season) 2025 05/09/2021, 04/18/2021 Adult Td,Tdap Booster 10/12/2026 10/12/2016 SCREENING FOR [...] EDT) SODIUM 138 133 - 146 mmol/L [facility] CHLORIDE 104 96 - 108 mmol/L [facility] POTASSIUM 3.5 3.3 - 5.1 mmol/L [facility] CO2 22 21 - 35 mmol/L [facility] BUN 24(H) 6 - 19 mg/dL [facility] CREATININE 0.90 0.5 - 1.5 mg/dL [facility] GLUCOSE 97 70 - 99 mg/dL [facility] CALCIUM 9.6 8.4 - 10.3 mg/dL [facility] EGFR 86 >59 mL/min/1.7 3m2 [facility] Comment:Estimated glomerular filtration rate calculated using the CKD-EPI refit equation. ANION GAP 16 10 - 20 mmol/L [facility] Blood 02/23/2024 10:2 0 PM EDT 02/23/2024 10:24 PM EDT us Edwardo Hair DO LAB BLOOD ORDERABLES Final Re sult [facility] [address] [place] [address] from Last 3 Months or Most Recently Relevant to Health Maintenance Insurance [facility] [address] [place] [address] [place] [address] [facility] [address] [address] [place] [address] [place] [place] [address] [place] [address] [address] HMO Care Teams Clinical Research Specialist Relationship Specialty Start Date End Date Mae Madison NP [address] [place] [address] PCP - General Nurse Practitioner 02/23/24 Additional Source Comments The information contained in this document represents components of the legal health record. It is not the complete legal health record.[facility]
--- OUTSIDE RECORDS SUMMARY | 2025-04-12 10:32 | XMS_ITS | Encounter Summary ---
Author Organization [employer] Address [address] [facility] 7t [place] [address] Care Team Providers Care Color Finisher Name Role Phone Riri Avina DO Primary Care Provider [phone] Encounter Details Date Type Department Care Team (Late st Contact Info) Description 03/27/2023 Telephone [facility] ADULT D[facility]AL [address] [place] [address] Tali Elliott DMD Social History Tobacco Use [...] on filedocumented in this encounter Care Teams Color Finisher Relationship Specialty Start Date End Date Riri Avina DO [address] [place] [address] PCP - General Family Medicine 05/05/24 documented as of this encounter
--- OUTSIDE RECORDS SUMMARY | 2025-04-12 10:32 | XMS_ITS | Encounter Summary ---
Author Organization [facility] Address [address] [place] [address] Phone Care Team Providers Care Associate Spa Director Name Role Phone Mae Madison PHYSICAL EDUCATION AIDE Primary Care Provider + Encounter Details Date Type Department Care Team (Late st Contact Info) Description 02/23/2024 Procedure Pass [facility], Ct Scan - [address] [address] Social History Tobacco Use Types Packs/Day Years [...] 10:07 PM EDT Agustín Smith RN * [place] Suicide Severity Rating Scale (Screener/Recent Self-Report) Question [...] documented as of this encounter Care Teams Associate Spa Director Relationship Specialty Start Date End Date Mae Madison NP [address] [place] [address] PCP - General Nurse Practitioner 02/23/24 documented as of this encounter Additional Source Comments The information contained in this document represents components of the legal health record. It is not the complete legal health record.[facility]
--- OUTSIDE RECORDS SUMMARY | 2025-04-12 10:32 | XMS_ITS | Clinical Summary ---
Author Organization [employer] Address [address] [place] [address] 7t [place] [address] Care Team Providers Care Inhalation Therapist Name Role Phone Riri Avina DO Primary Care Provider [phone] Allergies Active Allergy Reactions Criticality Noted Date [...] Bitewings 04/02/2024 04/01/2023 COVID-19 Vaccine (3 - 2024-2 6 season) 2025 05/09/2021, 04/18/2021 Influenza Vaccine (#1) 2025 , [...] MD LAB CYTOLOGY ORDERABLES F inal Result [facility] [address] [place] [address] from Last 3 Months or Most Recently Relevant to Health Maintenance Insurance [facility] , [address] [place] [address] [facility] Care Teams Inhalation Therapist Relationship Specialty Start Date End Date Riri Avina DO [address] [place] [id number] PCP - General Family Medicine 05/05/24
== END 2025-04-12 09:23 | disposition home or self-care (01) ==
LOC: HO.US 09:22
PROVIDERS: PCP Physician Assistant Medical; Visit Provider Nurse Practitioner Family
DX: N20.0 Calculus of kidney (principal)
CPT/HCPCS: 76775

== ENCOUNTER → 2025-04-12 09:24 | Outpatient (BNV) | payer OTHER, SELFPAY | PROVIDERS: PCP Physician Assistant Medical; Visit Provider Radiology Diagnostic Radiology | DX: N20.0 Calculus of kidney (principal) | CPT/HCPCS: 76775 ==

== ENCOUNTER 2025-04-15 15:58 | Outpatient (AMB) | payer OTHER, SELFPAY ==
--- OUTSIDE RECORDS SUMMARY | 2021-04-28 09:40 | XMS_ITS | Encounter Summary ---
Author Organization [facility] Address [address] [place] [phone] Phone Care Team Providers Care General Manager Food Name Role Phone Pcp, Unknown Primary Care Provider Unavailabl e Encounter Details Date Type Department Care Team (Late st Contact Info) Description 04/28/2021 9:40 AM EDT Hospital Encounter [facility] [address] [place] [address] Marlene Collins FNP [address] [place] [phone] [email or web address] Social History Tobacco Use Types Packs/Day Years [...] 10:07 PM EDT Agustín Smith RN * [place] Suicide Severity Rating Scale (Screener/Recent Self-Report) Question [...] abnormality. IMPRESSION: No acute abnormality. Marlene Collins LOCKSMITH APPRENTICE IMG XR CHEST Final Resul t documented in this encounter Visit Diagnoses Not on filedocumented in this encounter Additional Health Concerns Infection Onset Date Last Indicated Resolved Time CoV-Risk 06/17/2022 06/17/2022 06/28/2022 12:2 3 PM EST CoV-Risk 08/05/2024 08/05/2024 08/16/2024 1:21 AM EST documented as of this encounter Care Teams General Manager Food Relationship Specialty Start Date End Date Pcp, Unknown PCP - General 04/28/21 02/22/24 documented as of this encounter Additional Source Comments The information contained in this document represents components of the legal health record. It is not the complete legal health record.[facility]
--- NOTE | 2025-04-15 16:06 | A.OFFPC_ITS ---
Vital Signs 04/15/25 16:10 Height 5 ft 3 in Weight 143 lb 2 oz BMI 25.4 BP 132/88 Blood Pressure Location Lt brachial Position Sitting Respiration 12 Pulse 88 Pulse Source Pulse Oximeter Temp 98.6 F Temp Source Temporal Artery Scan Pulse Oximetry (%) 98 Oxygen Delivery Method Room Air Intake Visit Reasons: physical exam Intake Note: Miracle presents in the office today for her annual physical. Allergies sumatriptan (SUMATRIPTAN) Allergy (Severe, Verified 04/15/25 16:08) THROAT SWELLING chlorthalidone Adverse Reaction (Intermediate, Uncoded 04/15/25 16:08) hypokalemia Medication List - Last Reconciled 04/15/25 by HAILEY Mendoza alprazolam 0.5 mg PO BID PRN amlodipine 5 mg PO DAILY bupropion HCl (smoking deter) 150 mg PO BID cholecalciferol (vitamin D3) 400 units PO DAILY cyclobenzaprine 5 mg PO TID PRN desogestrel-ethinyl estradiol 0.15-0.03 mg (Apri) tabs PO DAILY diclofenac sodium 1% 4 grams topical QID PRN ibuprofen 800 mg PO Q8H PRN levothyroxine 25 mcg PO DAILY 90 days losartan 100 mg PO DAILY ondansetron HCl 8 mg PO Q8H PRN pyridoxine (vitamin B6) 100 mg PO DAILY 90 days triamcinolone acetonide 0.1% 1 appl topical BID PRN Tobacco use date assessed: 04/15/25 Dental Screening Dental Screen Date: 04/15/25 Did you have a dental visit in the last 12 months?: No Did you have a dental problem in the last 6 months where you did not have access to dental care?: No Was dental information given to patient?: Patient has dentist HPI HPI Comments History of Present Illness Details 34 year old female presents for a physic al exam. She endorses continued problems with driving. 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 The moment she gets out of the car symptoms resolve. It does not happen if she is the passenger. She feels like she is at the top of a roller coaster going downward when she drives. She feels like her hands have fallen off the steering wheel when they have not. She described it almost as out of body sensation. It is worse making turns and going over bridges. It's a little better if she stays in the slow hernán. She biked last week, and it doesn't happen then. It started about a year ago but is getting worse. Denies headaches, dizziness, syncope, room spinning, ear pain, tinnitus, hearing loss. Tried Zoloft low dose for possible driving anxiety. Ineffective. Left breast masses-underwent benign breast biopsy. Her paternal cousin had breast cancer under the age of 50. Her father also has colon cancer in his 60s, and her paternal grandfather had melanoma. Skin exam is in July. She sees LAPIDARY APPRENTICE at [facility]. She has a history of colon polyps followed by [facility]. Colonoscopy is up to date. Reports she had negative genetic testing. ROS: Constitutional: No unexplained weight loss, fever, chills or night sweats. Eyes: No vision changes, blurry vision, double vision, eye pain, eye redness, eye discharge. ENT: No hearing loss, sneezing, congestion, runny nose or sore throat. Respiratory: No shortness of breath, cough or sputum production. Cardiovascular: No chest pain, chest pressure or chest discomfort. No palpitations or pedal edema. Gastrointestinal: No anorexia, nausea, vomiting or diarrhea. No abdominal pain or blood in stool. Genitourinary: No dysuria, hematuria, urinary frequency. Neurologic: No headache, dizziness, syncope, unilateral weakness, ataxia, numbness or tingling in the extremities. No seizures or tremors. No black outs. Endorses forgetfullness. Musculoskeletal: +chronic pain-see prior office visit notes.. Hematologic/Lymphatics: No bleeding or bruising. No painful lymph nodes. Skin: No rash Endocrine: No cold or heat intolerance. No polyuria or polydipsia. Psychiatric: No SI/HI. Patient says she does not feel anxious or depressed. Physical exam: Constitutional: Alert, in no distress. Head: Normocephalic. Eyes: Pupils are equal, round and reactive to light. Extraocular muscles intact. Ear, Nose and Throat: Canals clear. TMs normal. Normal nasal mucosa. No nasal discharge. No oral lesions. Neck: Supple, Full range of motion. No lymphadenopathy. No palpable thyroid masses. Respiratory: Clear to auscultation. Cardiovascular: S1 S2 regular. No murmurs. Gastrointestinal: Abdomen soft, non-tender, non-distended. Normal bowel sounds. No palpable masses. Genitourinary: No costovertebral angle tenderness. Neurologic: +Romberg (pt swaying and reports feeling off balance). Remainder of complete neuro exam is normal. Skin: No rashes Musculoskeletal: No gross deformities. Normal range of motion. Extremities: Warm and well perfused. No clubbing, cyanosis or edema. 3+ peripheral pulses bilaterally. Psychiatric: Normal mood and affect [facility] Medical History (Updated 04/15/25 @ 21:04 by HAILEY Mendoza) Routine physical examination Impaired proprioception Overweight Situational anxiety Chronic rhinitis Thoracic back pain Cloudy urine PCOS (polycystic ovarian syndrome) Low vitamin D level Hypothyroid Right flank pain Family history of melanoma Positive TRISH (antinuclear antibody) Elevated TSH Low blood potassium Contraception management Eczema History of gestational diabetes Insomnia Former smoker Chronic pain Colon polyps Family history of cancer Imbalance Memory loss Headache Kidney stones Anxiety HTN (hypertension) Surgical History Hx of tonsillectomy Family History Mother HTN (hypertension) Cardiovascular disease Thyroid disorder Father HTN (hypertension) Cancer Maternal Grandmother HTN (hypertension) High cholesterol Diabetes Cardiovascular disease Cancer Paternal Grandfather HTN (hypertension) High cholesterol Cancer Sister Asthma Social History (Updated 04/15/25 @ 16:10 by Liz Syed MA) Household Members: Significant Other and Children Both parents involved: No Caregiver staying overnight: No Housing: House Are you a primary career professional to a significant other at home: Yes Do you presently have visiting nurse or other home services: No 75 years or older and lives alone: No Alcohol intake: current Alcohol intake frequency: a few times a month Patient Tobacco Use Status: Former Tobacco user Cigarettes Per Day: 10 Years Smoked: 10 e-Cigarette/Vaping Use: Never Used Second Hand Smoke Exposure: No service: No Current occupational status: unemployed Current occupational exposures/hazards: No Cognitive needs: No Hearing needs: No Vision needs: No Questionnaire PHQ-9 Over the last 2 weeks, how often have you been bothered by any of the following problems? 1. Little interest or pleasure in doing things: not at all 2. Feeling down, depressed, or hopeless: not at all 3. Trouble falling or staying asleep, or sleeping too much: more than half the days 4. Feeling tired or having little energy: several days 5. Poor appetite or overeating: not at all 6. Feeling bad about yourself - or that you are a failure or have let yourself or your family down: not at all 7. Trouble concentrating on things, such as reading the newspaper or watching television: not at all 8. Moving or speaking so slowly that other people could have noticed. Or the opposite - being so fidgety or restless that you have been moving around a lot more than usual: not at all 9. Thoughts that you would be better off or of hurting yourself in some way: not at all Total score: 3 Depression Screening Interpretation: Negative Depression Screening Done: Yes Source: Developed by Drs. Karthik Felton, Kristie Barrientos, Dave Brown and colleagues, with an educational joan from [employer]. Thrive Questionnaire Date Thrive assessed: 04/15/25 I am a: Patient What is your living situation today?: I have a steady place to live Within the past 12 months, did the food you bought not last and you didn't have the money to get more?: Never true Within the past 12 months, did you worry whether your food would run out before you got money to buy more?: Never true Do you have trouble paying for medicines?: No Do you have trouble getting transportation to medical appointments?: No Do you have trouble paying your heating and electricity bill?: No Do you have trouble taking care of your child, family member or friend?: No Do you have trouble with day-to-day activities such as bathing, preparing meals, shopping, managing finances, etc.?: No Are you currently unemployed and looking for a job?: I choose not to answer this question Are you interested in more education?: No Please select the resources that you would like help with: None Currently or been in a relationship where the following occur: No concerns reported THRIVE Score: 0 AUDIT C Alcohol Use Questionnaire (AUDIT-C) 1. How often do you have a drink containing alcohol?: 2-4 times a month 2. How many drinks containing alcohol do you have on a typical day when you are drinking?: 3 or 4 3. How often do you have six or more drinks on one occasion?: Never Total Score: 3 THIERNO-7 AMB Questionnaire THIERNO-7 Date THIERNO - 7 assessed: 12/31/24 Feeling nervous, anxious, or on edge: 0 = Not at all Not being able to stop or control worryin = Not at all Worrying too much about different things: 0 = Not at all Trouble relaxin = Several days Being so restless that it is hard to sit still: 0 = Not at all Becoming easily annoyed or irritable: 0 = Not at all Feeling afraid as if something awful might happen: 0 = Not at all Total THIERNO-7 score (0-4 normal; 5-9 mild; 10-14 moderate; 15-21 severe): 1 Source: Developed by Drs. Karthik Felton, Kristie Barrientos, Dave Brown and colleagues, with an educational joan from [employer]. THIERNO-7 Assessment Billing THIERNO-7 Assessment Tool: THIERNO-7 Assessment 14113 Physical exam (Primary Care) Vital Signs: Last Vital Signs Temp 98.6 F 04/15/25 16:10 Pulse 88 04/15/25 16:10 Resp 12 04/15/25 16:10 BP 132/88 04/15/25 16:10 Pulse Ox 98 04/15/25 16:10 Oxygen Delivery Method Room Air 04/15/25 16:10 BMI result Body Mass Index 25.4 Tobacco/Smoking Status: Tobacco use Status Tobacco use date assessed 04/15/25 04/15/25 16:15 Patient Tobacco Use Status Former Tobacco user 04/15/25 16:15 e-Cigarette/Vaping Use Never Used 04/15/25 16:15 PHQ-9: PHQ-9 Score PHQ-9: Total score 3 04/15/25 16:37 Depression Screening Interpretation: Negative Thrive Assessment: Date of Thrive Assessment Date Thrive assessed 04/15/25 04/15/25 16:15 Currently or been in a relationship where the following occur: No concerns reported Coding Level of Care Code Est Pt Prev Care 18-39y(16728) Diagnoses Routine physical examination Z00.00 Impaired proprioception R29.818 Additional Codes THIERNO-7 Assessment Billing - THIERNO-7 Assessment Tool: THIERNO-7 Assessment 37650 ([id number]) Assessment & Plan Assessment & Plan (1) Routine physical examination: Code(s): Z00.00 - Encounter for general adult medical examination without abnormal findings Category: Medical Plan: Patient is seen today for a routine physical. As part of this visit we reviewed the following issues, which are considered and essential part of preventative health in this age group: - Breast Cancer screening - Annual Concrete Handler exam - Screening for colon cancer - Cholesterol screening - Osteoporosis prevention including calcium/vitamin D intake, weight bearing exercise & smoking cessation - Nutritional and exercise counseling - Counseling of injury prevention including fire prevention, smoke alarms and seat belt usage - Screening for depression - Prevention of and/or testing for infectious diseases - declined - Education about skin cancer - Recommendations about immunizations - Recommendation of an eye exam - Screening for substance abuse (2) Impaired proprioception: Code(s): R29.818 - Other symptoms and signs involving the nervous system Category: Medical Plan: Patient reports worsening episodes which 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 Positive romberg today. Plan is to obtain MRI of the brain and refer to neuro pending results. She is not driving on the highway due to symptoms. Sent patient instructions to wean off Sertraline. Plan Schedule follow up. Orders: Orders MR head/brain wo con Today R29.818 - Other symptoms and signs involving the nervous system Medications: Discontinued sertraline Discontinued Reason: Doctor's Order 25 mg PO DAILY 30 tabs 0RF
[2025-04-15 16:10] VITALS: BP 132/88; PULSE 88; RESP 12; TEMP 37; O2SAT 98; BMI 25.4
--- OUTSIDE RECORDS SUMMARY | 2025-04-15 18:52 | XMS_ITS | Encounter Summary ---
Author Organization [employer] Address [address] [facility] 7t [place] [address] Care Team Providers Care Background Investigator Name Role Phone Riri Avina DO Primary Care Provider [phone] Encounter Details Date Type Department Care Team (Late st Contact Info) Description 03/27/2023 Telephone [facility] ADULT DENTAL [address] [place] [address] Tali Elliott DMD Social History Tobacco Use [...] on filedocumented in this encounter Care Teams Background Investigator Relationship Specialty Start Date End Date Riri Avina DO [address] [place] [address] PCP - General Family Medicine 05/05/24 documented as of this encounter
--- OUTSIDE RECORDS SUMMARY | 2025-04-15 18:52 | XMS_ITS | Clinical Summary ---
Author Organization [employer] Address [address] [place] [address] 7t [place] [address] Care Team Providers Care Film Color Tester Name Role Phone Riri Avina DO Primary Care Provider [phone] Allergies Active Allergy Reactions Criticality Noted Date [...] MD LAB CYTOLOGY ORDERABLES F inal Result [facility] [address] [place] [address] from Last 3 Months or Most Recently Relevant to Health Maintenance Insurance [facility] , [address] [place] [address] [facility] Care Teams Film Color Tester Relationship Specialty Start Date End Date Riri Avina DO [address] [place] [address] PCP - General Family Medicine 05/05/24
--- OUTSIDE RECORDS SUMMARY | 2025-04-15 18:52 | XMS_ITS | Encounter Summary ---
Author Organization [employer] Address [address] [place] [address] 7t [place] [address] Care Team Providers Care Stave Block Splitter Name Role Phone Riri Avina DO Primary Care Provider [phone] Reason for Visit * Reason Onset Date Comments Appointment 10/29/2022 Encounter Details Date Type Department Care Team ([facility] st Contact Info) Description 10/29/2022 Telephone [facility]ULT D[facility] [address] [place], [place] [id number] Connor High DDS [address] [place] [address] Appointment Social History Tobacco Use Types Packs/Day [...] on filedocumented in this encounter Care Teams Stave Block Splitter Relationship Specialty Start Date End Date Riri Avina DO [address] [place] [address] PCP - General Family Medicine 05/05/24 documented as of this encounter
--- OUTSIDE RECORDS SUMMARY | 2025-04-15 18:52 | XMS_ITS | Clinical Summary ---
Author Organization [facility] Address [address] [place] [address] Phone Care Team Providers Care Tape Sewing Machine Operator Name Role Phone Mae Madison BILLIARD TABLE ASSEMBLER Primary Care Provider + Allergies Active Allergy [...] EDT) SODIUM 138 133 - 146 mmol/L [facility] CHLORIDE 104 96 - 108 mmol/L [facility] POTASSIUM 3.5 3.3 - 5.1 mmol/L [facility] CO2 22 21 - 35 mmol/L [facility] BUN 24(H) 6 - 19 mg/dL [facility] CREATININE 0.90 0.5 - 1.5 mg/dL [facility] GLUCOSE 97 70 - 99 mg/dL [facility] CALCIUM 9.6 8.4 - 10.3 mg/dL [facility] EGFR 86 >59 mL/min/1.7 3m2 [facility] Comment:Estimated glomerular filtration rate calculated using the CKD-EPI refit equation. ANION GAP 16 10 - 20 mmol/L [facility] Blood 02/23/2024 10:2 0 PM EDT 02/23/2024 10:24 PM EDT us Edwardo Hair DO LAB BLOOD ORDERABLES Final Re sult [facility] [address] [place] [address] from Last 3 Months or Most Recently Relevant to Health Maintenance Insurance [facility] [address] [place] [address] [place] [address] [facility] [employer] [address] [place] [address] [place] [place] [address] [place], [place] [address] [place] [address] HMO Care Teams Tape Sewing Machine Operator Relationship Specialty Start Date End Date Mae Madison NP [address] [place] [address] PCP - General Nurse Practitioner 02/23/24 Additional Source Comments The information contained in this document represents components of the legal health record. It is not the complete legal health record.[facility]
--- OUTSIDE RECORDS SUMMARY | 2025-04-15 18:52 | XMS_ITS | Encounter Summary ---
Author Organization [employer] Address [address] [facility] [address]t [place] [address] Care Team Providers Care Physical Therapy Asst Name Role Phone King Riri Primary Care Provider [phone] Encounter Details Date Type Department Care Team (Late st Contact Info) Description 08/14/2024 Orders Only [facility] MEDICAL [address] [place] [address] Provider, Historical, Social History Tobacco Use Types [...] on filedocumented in this encounter Care Teams Physical Therapy Asst Relationship Specialty Start Date End Date Riri Avina DO [address] [place] [address] PCP - General Family Medicine 05/05/24 documented as of this encounter
--- OUTSIDE RECORDS SUMMARY | 2025-04-15 18:52 | XMS_ITS | Encounter Summary ---
Author Organization [facility] Address [address] [place] [address] Phone Care Team Providers Care Gear And Spline Grinder Name Role Phone Mae Madison ALCOHOL LAW ENFORCEMENT AGENT Primary Care Provider + Encounter Details Date Type Department Care Team (Late st Contact Info) Description 02/23/2024 Procedure Pass [facility], Ct Scan - [address] [address] Social History Tobacco Use Types Packs/Day Years [...] 10:07 PM EDT Agustín Smith RN * [place] Suicide Severity Rating Scale (Screener/Recent Self-Report) Question [...] documented as of this encounter Care Teams Gear And Spline Grinder Relationship Specialty Start Date End Date Mae Madison NP [address] [place] [address] PCP - General Nurse Practitioner 02/23/24 documented as of this encounter Additional Source Comments The information contained in this document represents components of the legal health record. It is not the complete legal health record.[facility]
== END 2025-04-15 17:25 ==
LOC: HO.HMCFM 15:58
PROVIDERS: PCP Family Medicine; Visit Provider Physician Assistant Medical
DX: Z00.00 Encounter for general adult medical examination without abnormal findings (principal); R29.818 Other symptoms and signs involving the nervous system

== ENCOUNTER → 2025-04-15 15:58 | Outpatient (BNVA) | payer OTHER, SELFPAY | PROVIDERS: PCP Family Medicine; Visit Provider Physician Assistant Medical | DX: Z00.00 Encounter for general adult medical examination without abnormal findings (principal); R29.818 Other symptoms and signs involving the nervous system; Z13.31 Encounter for screening for depression | CPT/HCPCS: 96127; 99395 ==

== ENCOUNTER 2025-04-19 10:25 | Outpatient (AMB) | payer OTHER, SELFPAY ==
--- OUTSIDE RECORDS SUMMARY | 2021-04-28 09:40 | XMS_ITS | Encounter Summary ---
Author Organization [facility] Address [address] [place] [phone] Phone Care Team Providers Care Environmental Technical Officer Name Role Phone Pcp, Unknown Primary Care Provider Unavailabl e Encounter Details Date Type Department Care Team (Late st Contact Info) Description 04/28/2021 9:40 AM EDT Hospital Encounter [facility] [address] [place] [phone] Marlene Collins FNP [address] [place] [phone] [email or web address] Social History Tobacco Use Types Packs/Day [...] 10:07 PM EDT Agustín Smith RN * [place] Suicide Severity Rating Scale (Screener/Recent Self-Report) Question [...] abnormality. IMPRESSION: No acute abnormality. Marlene Collins VEGETABLE II FARMWORKER IMG XR CHEST Final Resul t documented in this encounter Visit Diagnoses Not on filedocumented in this encounter Additional Health Concerns Infection Onset Date Last Indicated Resolved Time CoV-Risk 06/17/2022 06/17/2022 06/28/2022 12:2 3 PM EST CoV-Risk 08/05/2024 08/05/2024 08/16/2024 1:21 AM EST documented as of this encounter Care Teams Environmental Technical Officer Relationship Specialty Start Date End Date Pcp, Unknown PCP - General 04/28/21 02/22/24 documented as of this encounter Additional Source Comments The information contained in this document represents components of the legal health record. It is not the complete legal health record.[facility]
--- NOTE | 2025-04-19 10:26 | MHC.OFFVIS ---
Intake Visit Reasons: 3m follow up/ US Intake Note: patient presents today for: 3mo follow up/US urology medications: tamsulosin, vit b6 blood thinners: apixaban US done: 04/12/25 Sanitation Supervisor Required: No Accompanied by: Self / Same As Patient Allergies sumatriptan (SUMATRIPTAN) Allergy (Severe, Verified 04/19/25 10:53) THROAT SWELLING chlorthalidone Adverse Reaction (Intermediate, Uncoded 04/19/25 10:53) hypokalemia Medication List - Last Reconciled 04/19/25 by RENAN Edge- alprazolam 0.5 mg PO BID PRN amlodipine 5 mg PO DAILY bupropion HCl (smoking deter) 150 mg PO BID cholecalciferol (vitamin D3) 400 units PO DAILY cyclobenzaprine 5 mg PO TID PRN desogestrel-ethinyl estradiol 0.15-0.03 mg (Apri) tabs PO DAILY diclofenac sodium 1% 4 grams topical QID PRN ibuprofen 800 mg PO Q8H PRN levothyroxine 25 mcg PO DAILY 90 days losartan 100 mg PO DAILY ondansetron HCl 8 mg PO Q8H PRN pyridoxine (vitamin B6) 100 mg PO DAILY 90 days triamcinolone acetonide 0.1% 1 appl topical BID PRN HPI Comments Details: Miracle is a pleasant 34-year-old female patient of Dr. Verma. She has a past medical history of thoracic back pain, PCOS, hypothyroidism, positive TRISH, insomnia, former smoker, chronic pain, headaches, nephrolithiasis, anxiety, and hypertension. She presents to the office today for follow-up. Of note, patient was seen approximately 3 months ago as a new patient for nephrolithiasis at which time a renal ultrasound was ordered for further assessment evaluation. These results were reviewed and communicated with the patient today. 04/29 bilateral kidneys with no renal masses or hydronephrosis. Bilateral 3 mm nonobstructing calculi in the lower pole. When asked she does report noting intermittent episodes of bilateral flank pain. She reports feeling symptoms have relieved over the last few days however previously had been experiencing bothersome flank pain. In office urinalysis results reviewed with the patient today. We did discuss nephrolithiasis at length. All questions were answered. We discussed importance of completing 24 hour urine collection as ordered during last office visit for prevention of nephrolithiasis. She denies urinary urgency, urinary frequency, incontinence, nocturia, hematuria, dysuria, foul smelling urine, changes to urinary stream, fever, and or chills. She is happy with her current voiding parameters. We discussed at length potential causes of nephrolithiasis as well as the importance of adequate hydration relation to nephrolithiasis. We discussed obtaining Litholink and imaging for further assessment evaluation. She is agreeable. All questions were answered. She otherwise offers no other issues or concerns at this time. [facility] Medical History Routine physical examination Impaired proprioception Overweight Situational anxiety Chronic rhinitis Thoracic back pain Cloudy urine PCOS (polycystic ovarian syndrome) Low vitamin D level Hypothyroid Right flank pain Family history of melanoma Positive TRISH (antinuclear antibody) Elevated TSH Low blood potassium Contraception management Eczema History of gestational diabetes Insomnia Former smoker Chronic pain Colon polyps Family history of cancer Imbalance Memory loss Headache Kidney stones Anxiety HTN (hypertension) Surgical History Hx of tonsillectomy Family History Mother HTN (hypertension) Cardiovascular disease Thyroid disorder Father HTN (hypertension) Cancer Maternal Grandmother HTN (hypertension) High cholesterol Diabetes Cardiovascular disease Cancer Paternal Grandfather HTN (hypertension) High cholesterol Cancer Sister Asthma Social History (Updated 04/15/25 @ 16:10 by Liz Syed MA) Household Members: Significant Other and Children Both parents involved: No Caregiver staying overnight: No Housing: House Are you a primary clinical care manager to a significant other at home: Yes Do you presently have visiting nurse or other home services: No 75 years or older and lives alone: No Alcohol intake: current Alcohol intake frequency: a few times a month Patient Tobacco Use Status: Former Tobacco user Cigarettes Per Day: 10 Years Smoked: 10 e-Cigarette/Vaping Use: Never Used Second Hand Smoke Exposure: No service: No Current occupational status: unemployed Current occupational exposures/hazards: No Cognitive needs: No Hearing needs: No Vision needs: No Review of Systems Const All systems reviewed & are unremarkable except as noted in HPI and below Physical Exam Const General: cooperative, healthy appearing, comfortable, no acute distress, well developed, alert and awake Nutritional Appearance: average body habitus Orientation/consciousness: patient oriented x3 Limitations: no limitations HEENT Head: Yes normal to inspection, Yes normocephalic and Yes atraumatic Ears: hearing grossly normal bilaterally Eyes General: appearance normal, both eyes and all related structures Neck Neck: Yes normal visual inspection and Yes trachea midline Chest Chest palpation & inspection: normal inspection of the chest Resp Effort & Inspection: normal respiratory effort and able to speak in complete sentences Cardio Rate: regular rate GI Inspection: Yes normal to inspection General: Yes no CVA tenderness Back/Spine/Pelvis Back: no CVA tenderness Skin General skin exam: no rashes or lesions noted Neuro General: patient oriented x3 Extrem General: Yes normal to inspection Psych Appearance: grossly normal and well kempt Mental Status: mental status grossly normal Speech and movement: Normal speech and movement present and Clear speech present Affect: normal affect Attitude: cooperative Thought process: Normal thought process present Thought content: Normal thought content present Insight: Fair insight present (Psych) Judgement: Fair judgement present (Psych) Results Reviewed Results Reviewed: Date of Service: 04/12/25 Procedure(s): US renal BI FINDINGS: Right kidney: The right kidney measures 13.0 x 4.6 x 6.5 cm. Renal parenchymal echotexture and thickness are normal. There are no masses. There is a 3 mm nonobstructing calculus at the lower pole. There is no hydronephrosis. Left Kidney: The left kidney measures 13.1 x 5.2 x 4.2 cm. Renal parenchymal echotexture and thickness are normal. There are no masses. There is a 3 mm nonobstructing calculus at the lower pole. There is no hydronephrosis. IMPRESSION: Nonobstructing 3 mm calculi at the lower poles of both kidneys. No hydronephrosis. Assessment & Plan Assessment & Plan (1) Kidney stones: Code(s): N20.0 - Calculus of kidney Category: Medical Plan In office urinalysis results reviewed with the patient today; as noted above. Recent renal imaging results reviewed with the patient today. We discussed at length potential causes of nephrolithiasis as well as further interventions and risks and benefits of these interventions. Will obtain Litholink for further assessment evaluation. We discussed the importance of adequate hydration relation to nephrolithiasis as well as overall health and well-being. We discussed adding 1 oz of lemon juice to water daily. Continue vitamin B6 as discussed and prescribed; refill provided She currently denies any bothersome urinary issues. She reports be happy with current voiding parameters. Follow-up in 3 months with Litholink; or sooner with any issues, concerns, and or questions. Orders: Orders AMB Urinalysis Automated Today Z13.9 - Encounter for screening, unspecified Medications: Refilled pyridoxine (vitamin B6) 100 mg PO DAILY 90 tabs 1RF 90 days Discontinued ondansetron HCl Discontinued Reason: Patient Completed Course 8 mg PO Q8H PRN 5 tabs 0RF nausea and vomiting Patient Instructions: The patient had an opportunity to ask questions regarding the treatment plan. All questions were answered. Physical exam, labs, and imaging were discussed and reviewed in detail. As well as risks, benefits, and discussion of treatment choices. No major barriers to understanding were identified. The patient expressed understanding and agreement with the above treatment plan. The patient was made aware they should contact our office by phone for worsening of their current condition, the appearance of new symptoms, or with any questions or concerns. Compliance is encouraged with any medications and follow up testing that is ordered. It is a privilege to be allowed the opportunity to participate in? your urological care.? Again, if you have any questions or concerns If you have any questions or concerns please do not hesitate to contact me. The office is [phone]. This note is constructed using voice recognition software. While every effort has been made to ensure accuracy wildlife control operator errors may have been included. Yours sincerely, [facility] Coding Level of Care Code Est Pt Level 3 (94327) Diagnoses Kidney stones N20.0
--- OUTSIDE RECORDS SUMMARY | 2025-04-19 13:16 | XMS_ITS | Encounter Summary ---
Author Organization [employer] Address [address] [place] [address] [address] [place] [address] Care Team Providers Care President & Founder Name Role Phone Riri Avina DO Primary Care Provider Reason for Visit * Reason Onset Date Comments Appointment 10/29/2022 Encounter Details Date Type Department Care Team ([facility] st Contact Info) Description 10/29/2022 Telephone [facility] ADULT DENTAL [address] [place], [place] [phone] Connor High DDS [address] [place] [address] Appointment Social History Tobacco Use Types Packs/Day [...] on filedocumented in this encounter Care Teams President & Founder Relationship Specialty Start Date End Date Riri Avina DO [address] [place] [id number] PCP - General Family Medicine 05/05/24 documented as of this encounter
--- OUTSIDE RECORDS SUMMARY | 2025-04-19 13:16 | XMS_ITS | Clinical Summary ---
Author Organization [employer] Address [address] [place] [address] 7t [place] [address] Care Team Providers Care Inclusion Manager Name Role Phone Riri Avina DO Primary Care Provider [phone] Allergies Active Allergy Reactions Criticality Noted Date [...] MD LAB CYTOLOGY ORDERABLES F inal Result [facility] [address] [place] [address] from Last 3 Months or Most Recently Relevant to Health Maintenance Insurance [facility] , [address] [place] [address] [facility] Care Teams Inclusion Manager Relationship Specialty Start Date End Date Riri Avina DO [address] [place] [id number] PCP - General Family Medicine 05/05/24
--- OUTSIDE RECORDS SUMMARY | 2025-04-19 13:16 | XMS_ITS | Encounter Summary ---
Author Organization [facility] Address [address] [place] [phone] Phone Care Team Providers Care Software Testing Specialist Name Role Phone Mae Madison MINIBUS DRIVER Primary Care Provider + Encounter Details Date Type Department Care Team (Late st Contact Info) Description 02/23/2024 Procedure Pass [facility], Ct Scan - [address] [address] Social History Tobacco Use Types Packs/Day Years [...] 10:07 PM EDT Agustín Smith RN * [place] Suicide Severity Rating Scale (Screener/Recent Self-Report) Question [...] documented as of this encounter Care Teams Software Testing Specialist Relationship Specialty Start Date End Date Mae Madison NP [address] [place] [address] PCP - General Nurse Practitioner 02/23/24 documented as of this encounter Additional Source Comments The information contained in this document represents components of the legal health record. It is not the complete legal health record.[facility]
--- OUTSIDE RECORDS SUMMARY | 2025-04-19 13:16 | XMS_ITS | Encounter Summary ---
Author Organization [employer] Address [address] [facility] 7t [place] [address] Care Team Providers Care Mobile Homes Repairer Name Role Phone King Riri Primary Care Provider [phone] Encounter Details Date Type Department Care Team (Late st Contact Info) Description 08/14/2024 Orders Only [facility] MEDICAL [address] [place] [address] Provider, Historical, Social History Tobacco Use Types [...] filedocumented in this encounter Care Teams Mobile Homes Repairer Relationship Specialty Start Date End Date Riri Avina DO [address] [place] [address] PCP - General Family Medicine 05/05/24 documented as of this encounter
--- OUTSIDE RECORDS SUMMARY | 2025-04-19 13:16 | XMS_ITS | Clinical Summary ---
Author Organization [facility] Address [address] [place] [address] Phone Care Team Providers Care Honing Machine Operator Semiautomatic Name Role Phone Mae Madison HARM REDUCTION WORKER Primary Care Provider + Allergies Active Allergy [...] EDT) SODIUM 138 133 - 146 mmol/L [facility] CHLORIDE 104 96 - 108 mmol/L [facility] POTASSIUM 3.5 3.3 - 5.1 mmol/L [facility] CO2 22 21 - 35 mmol/L [facility] BUN 24(H) 6 - 19 mg/dL [facility] CREATININE 0.90 0.5 - 1.5 mg/dL [facility] GLUCOSE 97 70 - 99 mg/dL [facility] CALCIUM 9.6 8.4 - 10.3 mg/dL [facility] EGFR 86 >59 mL/min/1.7 3m2 [facility] Comment:Estimated glomerular filtration rate calculated using the CKD-EPI refit equation. ANION GAP 16 10 - 20 mmol/L [facility] Blood 02/23/2024 10:2 0 PM EDT 02/23/2024 10:24 PM EDT us Edwardo Hair DO LAB BLOOD ORDERABLES Final Re sult [facility] [address] [place] [address] from Last 3 Months or Most Recently Relevant to Health Maintenance Insurance [facility] [address] [place] [address] [place] [address] [facility] [address] [place] [place] [address] [place] [place] [address] [place] [address] [address] HMO [facility] Address: [address] [address] Care Teams Honing Machine Operator Semiautomatic Relationship Specialty Start Date End Date Mae Madison NP [address] [place] [address] PCP - General Nurse Practitioner 02/23/24 Additional Source Comments The information contained in this document represents components of the legal health record. It is not the complete legal health record.[facility]
--- OUTSIDE RECORDS SUMMARY | 2025-04-19 13:16 | XMS_ITS | Encounter Summary ---
Author Organization [employer] Address [address] [facility] 7t [place] [address] Care Team Providers Care Electrician Bus Name Role Phone Riri Avina DO Primary Care Provider [phone] Encounter Details Date Type Department Care Team (Late st Contact Info) Description 03/27/2023 Telephone [facility] ADULT DENTAL [address] [place] [address] Tali Elliott DMD Social History Tobacco Use [...] on filedocumented in this encounter Care Teams Electrician Bus Relationship Specialty Start Date End Date Riri Avina DO [address] [place] [address] PCP - General Family Medicine 05/05/24 documented as of this encounter
== END 2025-04-19 10:55 | disposition home or self-care (01) ==
LOC: HO.HUSH 10:25
PROVIDERS: PCP Family Medicine; Visit Provider Nurse Practitioner Family
DX: N20.0 Calculus of kidney (principal); Z13.9 Encounter for screening, unspecified
CPT/HCPCS: 99213

== ENCOUNTER → 2025-04-19 10:25 | Outpatient (BNVA) | payer OTHER, SELFPAY | PROVIDERS: PCP Family Medicine; Visit Provider Nurse Practitioner Family | DX: Z71.2 Person consulting for explanation of examination or test findings (principal); N20.0 Calculus of kidney | CPT/HCPCS: 81003; 99212 ==

== ENCOUNTER → 2025-05-10 13:46 | Outpatient (BNV) | payer OTHER, SELFPAY | PROVIDERS: PCP Family Medicine; Visit Provider Radiology Diagnostic Radiology | DX: R29.818 Other symptoms and signs involving the nervous system (principal) | CPT/HCPCS: 70551 ==

== ENCOUNTER 2025-05-10 13:48 | Outpatient (REF) | payer OTHER, SELFPAY ==
--- OUTSIDE RECORDS SUMMARY | 2021-04-28 09:40 | XMS_ITS | Encounter Summary ---
Author Organization [facility] Address [address] [place] [phone] Phone Care Team Providers Care Wrap Checker Name Role Phone Pcp, Unknown Primary Care Provider Unavailabl e Encounter Details Date Type Department Care Team (Late st Contact Info) Description 04/28/2021 9:40 AM EDT Hospital Encounter [facility] [address] [place] [phone] Marlene Collins FNP [address] [place] [phone] [email or web address] Social History Tobacco Use Types Packs/Day Years [...] 10:07 PM EDT Agustín Smith RN * [place] Suicide Severity Rating Scale (Screener/Recent Self-Report) Question [...] abnormality. IMPRESSION: No acute abnormality. Marlene Collins SENIOR PRODUCTION MANAGER IMG XR CHEST Final Resul t documented in this encounter Visit Diagnoses Not on filedocumented in this encounter Additional Health Concerns Infection Onset Date Last Indicated Resolved Time CoV-Risk 06/17/2022 06/17/2022 06/28/2022 12:2 3 PM EST CoV-Risk 08/05/2024 08/05/2024 08/16/2024 1:21 AM EST documented as of this encounter Care Teams Wrap Checker Relationship Specialty Start Date End Date Pcp, Unknown PCP - General 04/28/21 02/22/24 documented as of this encounter Additional Source Comments The information contained in this document represents components of the legal health record. It is not the complete legal health record.[facility]
--- NOTE | ~2025-05-10 | MR_ITS ---
EXAMINATION: MR BRAIN WITHOUT CONTRAST CLINICAL INFORMATION: Disorientation, feeling of falling, arms tense and tingling. Other symptoms and signs involving the nervous system. COMPARISON: None available. TECHNIQUE: MRI of the brain was obtained using routine sequences without contrast. Examination performed on a 1.5 Carrie Siemens high-field unit. FINDINGS: There is no diffusion restriction. There is no intracranial hemorrhage, acute infarction, mass effect, or edema. Ventricles, sulci, and cisterns are normal in size and configuration for patient age. No shift of midline. No abnormal hemosiderin deposition is identified. There are no significant white matter signal abnormalities. Midline structures appear normally formed. The pituitary gland appears normal. Posterior fossa structures appear normal. Cerebellar tonsils are appropriately located. Major flow voids are preserved within the skull base. The globes and orbital contents demonstrate no abnormalities. Paranasal sinuses are clear bilaterally. The mastoids and tympanic cavities are normally aerated. Extracranial soft tissues demonstrate no abnormalities. No suspicious bone marrow changes are evident. Atlantoaxial joint demonstrates mild degenerative changes. MR/MR head/brain wo con IMPRESSION: 1. No evidence of intracranial hemorrhage, acute infarction, mass effect, or edema. Normal MRI of the brain. Electronically signed by: Mahin Gonzalez MD 05/10/2025 02:58 PM EDT
--- OUTSIDE RECORDS SUMMARY | 2025-05-10 16:14 | XMS_ITS | Encounter Summary ---
Author Organization [employer] Address [address] [facility] 7t [place] [address] Care Team Providers Care Hotel Or Motel Manager Name Role Phone King Riri Primary Care Provider [phone] Encounter Details Date Type Department Care Team (Late st Contact Info) Description 08/14/2024 Orders Only [facility] MEDICAL [address] [place] [address] Provider, Historical, Social History Tobacco Use Types [...] on filedocumented in this encounter Care Teams Hotel Or Motel Manager Relationship Specialty Start Date End Date Riri Avina DO [address] [place] [address] PCP - General Family Medicine 05/05/24 documented as of this encounter
--- OUTSIDE RECORDS SUMMARY | 2025-05-10 16:14 | XMS_ITS | Encounter Summary ---
Author Organization [facility] Address [address] [place] [phone] Phone Care Team Providers Care Mobile Application Engineer Name Role Phone Mae Madison FREELANCE PROGRAMMER/APP DEVELOPER Primary Care Provider + Encounter Details Date Type Department Care Team (Late st Contact Info) Description 02/23/2024 Procedure Pass [facility], Ct Scan - [address] [address] Social History Tobacco Use Types Packs/Day Years [...] 10:07 PM EDT Agustín Smith RN * [place] Suicide Severity Rating Scale (Screener/Recent Self-Report) Question [...] documented as of this encounter Care Teams Mobile Application Engineer Relationship Specialty Start Date End Date Mae Madison NP [address] [place] [address] PCP - General Nurse Practitioner 02/23/24 documented as of this encounter Additional Source Comments The information contained in this document represents components of the legal health record. It is not the complete legal health record.[facility]
--- OUTSIDE RECORDS SUMMARY | 2025-05-10 16:14 | XMS_ITS | Encounter Summary ---
Author Organization [employer] Address [address] [facility] 7t [place] [address] Care Team Providers Care Chief Unit Forester Name Role Phone Riri Avina DO Primary Care Provider [phone] Encounter Details Date Type Department Care Team (Late st Contact Info) Description 03/27/2023 Telephone [facility] ADULT DENTAL [address] [place] [address] Tali Elliott DMD Social History Tobacco Use [...] on filedocumented in this encounter Care Teams Chief Unit Forester Relationship Specialty Start Date End Date Riri Avina DO [address] [place] [address] PCP - General Family Medicine 05/05/24 documented as of this encounter
--- OUTSIDE RECORDS SUMMARY | 2025-05-10 16:14 | XMS_ITS | Clinical Summary ---
Author Organization [employer] Address [address] [place] [address] 7t [place] [address] Care Team Providers Care Logger All Round Name Role Phone Riri Avina DO Primary Care Provider [phone] Allergies Active Allergy Reactions Criticality Noted Date [...] MD LAB CYTOLOGY ORDERABLES F inal Result [facility] [address] [place] [address] from Last 3 Months or Most Recently Relevant to Health Maintenance Insurance [facility] , [address] [place] [address] [facility] Care Teams Logger All Round Relationship Specialty Start Date End Date Riri Avina DO [address] [place] [address] PCP - General Family Medicine 05/05/24
--- OUTSIDE RECORDS SUMMARY | 2025-05-10 16:14 | XMS_ITS | Encounter Summary ---
Author Organization [employer] Address [address] [place] [address] 7[address] [place] [address] Care Team Providers Care Protein Scientist Name Role Phone Riri Avina DO Primary Care Provider [phone] Reason for Visit * Reason Onset Date Comments Appointment 10/29/2022 Encounter Details Date Type Department Care Team ([facility] st Contact Info) Description 10/29/2022 Telephone [facility] ADULT DENTAL [address] [place], [place] [phone] Connor High DDS [address] [place] [address] Appointment Social History Tobacco Use Types Packs/Day [...] on filedocumented in this encounter Care Teams Protein Scientist Relationship Specialty Start Date End Date Riri Avina DO [address] [place] [address] PCP - General Family Medicine 05/05/24 documented as of this encounter
--- OUTSIDE RECORDS SUMMARY | 2025-05-10 16:15 | XMS_ITS | Clinical Summary ---
Author Organization [facility] Address [address] [place] [address] Phone Care Team Providers Care Watch Guard Gate Name Role Phone Mae Madison EDUCATION COUNSELOR Primary Care Provider + Allergies Active Allergy [...] EDT) SODIUM 138 133 - 146 mmol/L [facility] CHLORIDE 104 96 - 108 mmol/L [facility] POTASSIUM 3.5 3.3 - 5.1 mmol/L [facility] CO2 22 21 - 35 mmol/L [facility] BUN 24(H) 6 - 19 mg/dL [facility] CREATININE 0.90 0.5 - 1.5 mg/dL [facility] GLUCOSE 97 70 - 99 mg/dL [facility] CALCIUM 9.6 8.4 - 10.3 mg/dL [facility] EGFR 86 >59 mL/min/1.7 3m2 [facility] Comment:Estimated glomerular filtration rate calculated using the CKD-EPI refit equation. ANION GAP 16 10 - 20 mmol/L [facility] Blood 02/23/2024 10:2 0 PM EDT 02/23/2024 10:24 PM EDT us Edwardo Hair DO LAB BLOOD ORDERABLES Final Re sult [facility] [address] [place] [address] from Last 3 Months or Most Recently Relevant to Health Maintenance Insurance [facility] [address] [place] [address] [place] [address] [employer] [address] [place] [address] [place] [place] [address] [place] [place] [address] [place] [address] HMO Care Teams Watch Guard Gate Relationship Specialty Start Date End Date Mae Madison NP [address] [place] [address] PCP - General Nurse Practitioner 02/23/24 Additional Source Comments The information contained in this document represents components of the legal health record. It is not the complete legal health record.[facility]
== END 2025-05-10 13:49 | disposition home or self-care (01) ==
LOC: HO.MRI 13:48
PROVIDERS: PCP Family Medicine; Visit Provider Physician Assistant Medical
DX: R29.818 Other symptoms and signs involving the nervous system (principal)
CPT/HCPCS: 70551